=== PATIENT | female | born 1960 | race Caucasian/White ===

== ENCOUNTER → 2021-05-08 14:43 | Outpatient (BNVA) | payer OTHER, SELFPAY | PROVIDERS: PCP Internal Medicine; Visit Provider Hospitalist | DX: Z13.89 Encounter for screening for other disorder (principal) ==

== ENCOUNTER → 2021-07-07 13:11 | Outpatient (BNVA) | payer OTHER, SELFPAY | PROVIDERS: PCP Internal Medicine; Visit Provider Hospitalist | DX: Z13.89 Encounter for screening for other disorder (principal) | CPT/HCPCS: 94618 ==

== ENCOUNTER → 2021-11-12 15:05 | Outpatient (BNVA) | payer MEDICAID, SELFPAY | PROVIDERS: PCP Internal Medicine; Visit Provider Hospitalist | DX: J44.9 Chronic obstructive pulmonary disease, unspecified (principal); R06.00 Dyspnea, unspecified; U09.9 Post COVID-19 condition, unspecified; I27.20 Pulmonary hypertension, unspecified; I50.810 Right heart failure, unspecified; M79.89 Other specified soft tissue disorders | CPT/HCPCS: 99212 ==

== ENCOUNTER → 2022-07-05 14:43 | Outpatient (BNVA) | payer OTHER, SELFPAY | PROVIDERS: PCP Internal Medicine; Visit Provider Hospitalist | DX: U09.9 Post COVID-19 condition, unspecified (principal); I27.20 Pulmonary hypertension, unspecified; I50.810 Right heart failure, unspecified; M79.89 Other specified soft tissue disorders; R06.00 Dyspnea, unspecified | CPT/HCPCS: 99212 ==

== ENCOUNTER 2022-07-23 09:54 | Outpatient (RCR) | payer OTHER, SELFPAY ==
[2022-07-23 10:06] VITALS: BP 120/62; PULSE 89
--- NOTE | 2022-07-23 13:47 | MHC.PR.IN ---
[address] [phone] F: [phone] Pulmonary Rehabilitation Individual Treatment Plan Norma Johnson is a 61 year old (F) who was referred to the Pulmonary Rehabilitation program by Jasvir Tee. This patient who has a primary diagnosis of Post Covid 19 will begin pulmonary rehabilitation with monitored exercise and education to optimize both physical and social performance, autonomy, increase strength and endurance, and control dypsnea. The following information was gathered from the patient: Smoking History Current smoking status: Former Smoker Years smoked: 25 Last time smoked: 25 years ago Quit Date: 1997 Assistance with quitting needed: Past Medical History Medical History: Cardiac Disorders Sleep Apnea Bronchitis GERD Vascular Problems Depression Surgeries: Past Pulmonary Hospitalizations # of hospitalizations in the past year: # of ER vists due to breathing troubles in the past year: Current Pulmonary Medications Xarelto 20mg dialy Multaq 400 mg twice daily Aleve 1 tab a night Furosemide 40mg daily Allergy History Allergies: pollen/ seasonal Current Oxygen Use Supplemental Oxygen Device Used: None Liter flow: How often: Pulmonary History Cough: Yes: seasonal allergies Sputum: Sleep device: Yes: J&L Other pulmonary devices: Peak flow meter: No Nebulizer: No Suction: No Ventilator: No Secretion clearance: No PEP: No Influenza vaccine: No Pneumonia vaccine: No Patient Questionaire Scores MRC Dyspnea Scale (mRC): 3 CAT Score: PHQ-9 Score: 9 Pulmonary Function Test and Vital Signs Pulmonary Function Test Date of PFT 01/19/21 FVC Actual 2.51% FVC Predicted 2.63% FEV1 Actual 2.05% FEV1 Predicted 2.05% FEV1/FVC Actual 82% FEV1/FVC Predicted 78% DLCO 19.9 Vital Signs Heart Rate 89 Blood Pressure 120/62 SpO2 97% Respiratory Rate 16 regular shallow breathing Six Minute Walk Test Supplemental Oxygen O2 L/min: FiO2: Resting Vitals SpO2: 97% BP: 120/62mmHg HR: 89 bpm Total Distance 400 Feet Number/ Time of Rests (sec) 6 15 seconds each TIFFANIE 0 METS 1.57 SpO2 91 HR (bpm) 124 MPH 0.75 Meters/Minute Post-walk Vitals SpO2: 94 BP: 95/52 HR: 76 Performance Observations Pt walk 400 feet unassisted, with 6 15 second rest for a total of 6 minutes. Pt stopped to rest due to increased shortness of breath and rapid shallow breathing. Pt was able to resume the walk after resting. Pt denies angina, dizziness, or leg/hip/calf pain during testing. Pulmonary Rehabilitation Plan Topic Problem Goal Plan Comment Education Knowledge deficit of disease self management strategies Verbalize adequate disease self-management skills Effective control of dyspnea Disease overview Home exercise program Panic Control Pt was educated on pursed lip breathing. Pt was given instruction with explanation and pamphlet. Pt returned demonstration with correct technique. Hypoxia N/A, no s/s of hypoxemia Psychosocial Depression No reported psychosocial impairments Adequate treatment of depression Verbalizes improved psychosocial coping strategies & mechanisms Benefits of exercise Relaxation techniques Coping techniques Recommend counseling Pt stated she does fee depressed, and that's why she feels tired most days. Pt takes 2 -3 naps a day, and believes it is because of depression. Denies anxiety. Discussed the benefits of therapy, but patient denies need for one at this time. Pt believes participating in pulmonary rehab will help with her depression. Will discuss more thoroughly and provide education during her sessions. Activities of Daily Living Fear of severe dyspnea ADL management and control of dyspnea ADL performance with pacing and pursed lip breathing Educate on pursed lip breathing and pacing with stairs and activity Pt was given instruction and demonstrated her understanding of pursed lip breathing. Nutrition & Weight Management Obese BMI 68.7. Pt states she has had a steady increase in weight and this is the most she has weighed. Pt was given Dash diet education/recipes. Further education and discussion will be implemented during the program. Tobacco Managment NA Medication N/A, pt reports compliance w/ prescribed medications Adherence to prescribed medications Importance of medication compliance Medications purpose Medication schedule Prescribed medications PT states she takes medication as prescribed. Inhaled Medication N/A Pt is not prescribed respiratory medications at this time. Continuous review of medications throughout program. Secretion Management N/A, pt able to self manage secretions Patient demonstrates effective cough and airway clearance Patient demonstrates effective cough and airway clearance Pt has strong cough. Pt states her cough is worse with seasonal allergies, and is not experiencing a cough at this time. 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 Pt walked 400ft in 6 minutes with several rests. Pt stated she stopped because she was short of breath. Pt will participated in pul rehab 2X a week on Tuesday's and at 10:00am. Initial met's taken from walk 1.57 60%-80% HR will be monitored between 98-131. UBE completed on intake for 6 min L1.0/p6 mets 1.9 rpd 2.5 Stepper completed on intake for 6 minutes L1.0/P13 Mets 2.5 RPD 2.5 Treadmill completed on intake for 6 minutes L1.0/0 Mets 1.76 RPD 3 Diabetes Management Does patient have DM?: No Diabetes Type: Current Blood Glucose Level: Current A1C Level: Self Check: Patient's Goals and Concerns I want to be able to breathe while doing a set of stairs and not able to lose my breath. I want to go to my grandchild's games. I want to be able to do everyday things. Some days are worse than others. Pt states she is highly motivated to start this program but is worries this will get discouraged if she does not see change. . Balance Wheel Screw Hole Tapper Review I have reviewed the outcome assessment, treatment plan, goals, and problem list. The treatment plan and goals support the patient's needs and abilities, and thereby recommend that the exercise plan be completed as documented. Special precautions or modifications to the treatment plan include:
[2022-07-27 11:42] VITALS: BP 110/62; BP 118/70
[2022-08-03 11:42] VITALS: BP 105/68; BP 110/64
[2022-08-05 11:50] VITALS: BP 112/64; BP 161/64
[2022-08-10 10:00] VITALS: BP 100/68; BP 120/62
[2022-08-12 09:54] VITALS: BP 110/62; BP 110/64
--- NOTE | 2022-08-19 12:00 | MHC.PR.IN ---
[address] [phone] F: [phone] Pulmonary Rehabilitation Individual Treatment Plan Norma Johnson is a 61 year old (F) who was referred to the Pulmonary Rehabilitation program by Jasvir Tee. This patient who has a primary diagnosis of Post Covid 19 will begin pulmonary rehabilitation with monitored exercise and education to optimize both physical and social performance, autonomy, increase strength and endurance, and control dypsnea. The following information was gathered from the patient: Smoking History Current smoking status: Former Smoker Years smoked: 25 Last time smoked: 25 years ago Quit Date: 1997 Assistance with quitting needed: Past Medical History Medical History: Cardiac Disorders Sleep Apnea Bronchitis GERD Vascular Problems Depression Surgeries: Past Pulmonary Hospitalizations # of hospitalizations in the past year: # of ER vists due to breathing troubles in the past year: Current Pulmonary Medications zorelto 20mg dialy multaq 400 mg twice daily aleve 1 tab a night furosemide 40mg daily Allergy History Allergies: pollen/ seasonal Current Oxygen Use Supplemental Oxygen Device Used: None Liter flow: How often: Pulmonary History Cough: Yes: seasonal allergies Sputum: Sleep device: Yes: J&L Other pulmonary devices: Peak flow meter: No Nebulizer: No Suction: No Ventilator: No Secretion clearance: No PEP: No Influenza vaccine: No Pneumonia vaccine: No Patient Questionaire Scores MRC Dyspnea Scale (mRC): 3 CAT Score: PHQ-9 Score: 9 Pulmonary Function Test and Vital Signs Pulmonary Function Test Date of PFT 01/19/21 FVC Actual 2.51% FVC Predicted 2.63% FEV1 Actual 2.05% FEV1 Predicted 2.05% FEV1/FVC Actual 82% FEV1/FVC Predicted 78% DLCO 19.9 Vital Signs Heart Rate 89 Blood Pressure 120/62 SpO2 97% Respiratory Rate 16 regular shallow breathing Six Minute Walk Test Supplemental Oxygen O2 L/min: FiO2: Resting Vitals SpO2: 97% BP: 120/62mmHg HR: 89 bpm Total Distance 400 Feet Number/ Time of Rests (sec) 6 15 seconds each TIFFANIE 0 METS 1.57 SpO2 91 HR (bpm) 124 MPH 0.75 Meters/Minute Post-walk Vitals SpO2: 94 BP: 95/52 HR: 76 Performance Observations Pt walk 400 feet unassisted, with 6 15 second rest for a total of 6 minutes. Pt stopped to rest due to increased shortness of breath and rapid shallow breathing. Pt was able to resume the walk after resting. Pt denies angina, dizziness, or leg/hip/calf pain during testing. Pulmonary Rehabilitation Plan Topic Problem Goal Plan Comment Education Knowledge deficit of disease self management strategies Verbalize adequate disease self-management skills Effective control of dyspnea Disease overview Home exercise program Panic Control Pt was educated on pursed lip breathing. Pt was given instruction with explanation and pamphlet. Pt returned demonstration with correct technique. Hypoxia N/A, no s/s of hypoxemia Psychosocial Depression No reported psychosocial impairments Adequate treatment of depression Verbalizes improved psychosocial coping strategies & mechanisms Benefits of exercise Relaxation techniques Coping techniques Recommend counseling Pt stated she does fell depressed, and that's why she feels tired most days. Pt takes 2 -3 naps a day, and believes it is because of depression. Denies anxiety. Discussed the benefits of therapy, but patient denies need for one at this time. Pt believes participating in pulmonary rehab will help with her depression. Will discuss more thouroughly and provide education during her sessions. Activities of Daily Living Fear of severe dyspnea ADL management and control of dyspnea ADL performance with pacing and pursed lip breathing Educate on pursed lip breathing and pacing with stairs and activity Pt was given instruction and demonstrated her understanding of pursed lip breathing. Nutrition & Weight Management Obese BMI 68.7. Pt states she has had a steady increase in weight and this is the most she has weighed. Pt was given Dash diet education/recipes. Further education and discussion will be implemented during the program. Tobacco Managment NA Pt Medication N/A, pt reports compliance w/ prescribed medications Adherence to prescribed medications Importance of medication compliance Medications purpose Medication schedule Prescribed medications PT states she takes medication as prescribed. Inhaled Medication N/A Pt is not prescribed respiratory medications at this time. Further review will be implemented throughout program. Secretion Management N/A, pt able to self manage secretions Patient demonstrates effective cough and airway clearance Patient demonstrates effective cough and airway clearance Pt has strong cough. Pt states her cough is worse with seasonal allergies, and is not experiencing a cough at this time. Exercise & Fitness Decreased strength & endurance Knowledge deficit of exercise guidelines & safety No regular exercise Pulmonary Rehab 2-3x/week Weight or resistance training 2-3x/week Review benefits & core components of exercise program Review how to measure and monitor dyspnea level Review exercise safety guidelines Review frequency and duration of exercise Review exercise intensity TIFFANIE RPD 3-4/10 Review home exercise guidelines 5 minute warmup. Diabetes Management Does patient have DM?: No Diabetes Type: Current Blood Glucose Level: Current A1C Level: Self Check: Patient's Goals and Concerns I want to be able to breathe while doing a set of stairs and not able to lose my breath. I want to go to my grandchild's games. I want to be able to do everyday things. Some days are worse than others. Pt states she is highly motivated to start this program but is worries this will get discouraged if she does not see change. . Community Coordinator [employer] Review I have reviewed the outcome assessment, treatment plan, goals, and problem list. The treatment plan and goals support the patient's needs and abilities, and thereby recommend that the exercise plan be completed as documented. Special precautions or modifications to the treatment plan include:
--- NOTE | 2022-09-07 12:22 | MHC.PR.RE ---
[address] [phone] F: [phone] Pulmonary Rehabilitation Reassessment Norma Johnson is a 61 year old (F) who was referred to the Pulmonary Rehabilitation program by Jasvir Tee. This patient who has a primary diagnosis of Post Covid 19 has completed 6 sessions of the pulmonary rehabilitation program thus far with monitored exercise and education to optimize both physical and social performance, autonomy, increase strength and endurance, and control dypsnea. They were evaluated on 09/07/22. Reassessment Type: 60-day reassessment Topic Education/ Progress Progress Comments Education Demonstrates disease self-management strategies PT has not participated in session for about a month. Will call X2 Hypoxia Current oxygen Use: room air Pt does not use supplemental 02 at this time. Psychosocial PHQ-9 Score: 9 Pt progressing with coping skills. Pt states feeling happier since starting pulmonary rehab. Activities of Daily Living Management of ADL with Control of Dyspnea Progressing with pursed lip breathing and diaphragmatic breathing. Nutrition & Weight Management Current weight: 182 kg BMI: Weight change: Weight Stable Progressing Pt education on nutrition. Dash diet/low sodium/low calorie Tobacco Stages of Change: Tobacco Use: Cigerettes/Day: Any nicotine replacement: Any cessation medication: Smoking quit date: Smokeless tobacco use and amount: Medication Met, taking 100% of time zorelto 20mg dialy multaq 400 mg twice daily aleve 1 tab a night furosemide 40mg daily Inhaled Medication Patient verbalizes correct technique of: MDI: N/A DPI: N/A SMI: N/A NEBULIZER: N/A Secretion Management Patient provides adequate return demonstration of: Controlled cough: N/A Yi cough: Acapella/ PEP Device: N/A CPT: N/A Sputum management: Exercise & Fitness Aerobic Exercise Frequency: Aerobic exercise 2-3X weekly Target heart range: Heart rate range: 98 SpO2 Range: 131 TIFFANIE RPD: 3-4 Time (minutes): 31 O2 use with exercise: r/a Current HEP: UBE L1.2/P6 19 minutes Nustep L1.2 13 minutes 5 minute warmup 5 minute cooldown 32 minutes exercise. Pt has not shown up this week. Called X1 PT progresses in level and RPD each visit. Playground Aide Review I have reviewed the outcome re-assessment and treatment plan. The treatment plan and goals support the patient's needs and abilities, and thereby recommend that the exercise plan be completed as documented. Special precautions or modifications to the treatment plan include:
[2022-09-14 11:08] VITALS: BP 110/52; BP 112/52
[2022-09-16 11:07] VITALS: BP 128/62; BP 130/74
--- NOTE | 2022-09-29 09:06 | MHC.PR.RE ---
[address] [phone] F: [phone] Pulmonary Rehabilitation Reassessment Norma Johnson is a 61 year old (F) who was referred to the Pulmonary Rehabilitation program by Jasvir Tee. This patient who has a primary diagnosis of Post Covid 19 has completed 8 sessions of the pulmonary rehabilitation program thus far with monitored exercise and education to optimize both physical and social performance, autonomy, increase strength and endurance, and control dypsnea. They were evaluated on 09/29/22. Reassessment Type: 90-day reassessment Topic Education/ Progress Progress Comments Education Demonstrates disease self-management strategies PT has not participated in sessions consistently. Hypoxia Current oxygen Use: Room air Pt does not use supplemental 02 at this time. Psychosocial PHQ-9 Score: 9 Pt progressing with coping skills. Pt states feeling happier since starting pulmonary rehab. Activities of Daily Living Management of ADL with Control of Dyspnea Progressing with pursed lip breathing and diaphragmatic breathing. Nutrition & Weight Management Current weight: 182 kg BMI: Weight change: Weight Stable Progressing Pt education on nutrition. Dash diet/low sodium/low calorie Tobacco Stages of Change: Tobacco Use: Cigerettes/Day: Any nicotine replacement: Any cessation medication: Smoking quit date: Smokeless tobacco use and amount: Medication Met, taking 100% of time zorelto 20mg dialy multaq 400 mg twice daily aleve 1 tab a night furosemide 40mg daily Inhaled Medication Patient verbalizes correct technique of: MDI: N/A DPI: N/A SMI: N/A NEBULIZER: N/A Secretion Management Patient provides adequate return demonstration of: Controlled cough: N/A Yi cough: Acapella/ PEP Device: N/A CPT: N/A Sputum management: Exercise & Fitness Aerobic Exercise Frequency: Aerobic exercise 2-3X weekly Target heart range: Heart rate range: 98 SpO2 Range: 131 TIFFANIE RPD: 3-4 Time (minutes): 31 O2 use with exercise: r/a Current HEP: UBE L1.2/P6 19 minutes Nustep L1.2 13 minutes 5 minute warmup 5 minute cooldown 32 minutes exercise. Pt has not shown up this week. Called X1 Pt has only returned for 2 sessions. Operating Engineer Review I have reviewed the outcome re-assessment and treatment plan. The treatment plan and goals support the patient's needs and abilities, and thereby recommend that the exercise plan be completed as documented. Special precautions or modifications to the treatment plan include:
[2022-09-30 14:35] VITALS: BP 122/62; BP 122/68
[2022-10-07 13:23] VITALS: BP 108/68; BP 120/52
[2022-10-12 12:23] VITALS: BP 118/66; BP 128/78
--- NOTE | 2022-10-29 08:05 | MHC.PR.RE ---
[address] [phone] F: [phone] Pulmonary Rehabilitation Reassessment Norma Johnson is a 62 year old (F) who was referred to the Pulmonary Rehabilitation program by Jasvir Tee. This patient who has a primary diagnosis of Post Covid 19 has completed 11 sessions of the pulmonary rehabilitation program thus far with monitored exercise and education to optimize both physical and social performance, autonomy, increase strength and endurance, and control dypsnea. They were evaluated on 10/29/22. Reassessment Type: 120-day reassessment Topic Education/ Progress Progress Comments Education Demonstrates disease self-management strategies PT has not participated in sessions consistently. Hypoxia Current oxygen Use: Room Air Pt does not use supplemental 02 at this time. Psychosocial PHQ-9 Score: 9 Pt progressing with coping skills. Pt states feeling happier since starting pulmonary rehab. Activities of Daily Living Management of ADL with Control of Dyspnea Progressing with pursed lip breathing and diaphragmatic breathing. Nutrition & Weight Management Current weight: 182 kg BMI: Weight change: Weight Stable Progressing Pt education on nutrition. Dash diet/low sodium/low calorie Tobacco Stages of Change: Tobacco Use: Cigerettes/Day: Any nicotine replacement: Any cessation medication: Smoking quit date: Smokeless tobacco use and amount: Medication Met, taking 100% of time zorelto 20mg dialy multaq 400 mg twice daily aleve 1 tab a night furosemide 40mg daily Inhaled Medication Patient verbalizes correct technique of: MDI: N/A DPI: N/A SMI: N/A NEBULIZER: N/A Secretion Management Patient provides adequate return demonstration of: Controlled cough: N/A Yi cough: Acapella/ PEP Device: N/A CPT: N/A Sputum management: Exercise & Fitness Aerobic Exercise Frequency: Aerobic exercise 2-3X weekly Target heart range: Heart rate range: 98 SpO2 Range: 131 TIFFANIE RPD: 3-4 Time (minutes): 31 O2 use with exercise: r/a Current HEP: UBE L1.2/P6 19 minutes Nustep L1.2 13 minutes 5 minute warmup 5 minute cooldown 32 minutes exercise. Pt has not shown up this week. Called X1 Pt has not been consistent with sessions. Tonal Regulator Review I have reviewed the outcome re-assessment and treatment plan. The treatment plan and goals support the patient's needs and abilities, and thereby recommend that the exercise plan be completed as documented. Special precautions or modifications to the treatment plan include:
[2022-11-09 11:59] VITALS: BP 104/64; BP 128/70
== END 2022-11-17 07:55 | disposition home or self-care (01) ==
LOC: HO.PR 09:54
PROVIDERS: PCP Internal Medicine; Visit Provider Hospitalist
DX: I27.20 Pulmonary hypertension, unspecified (principal); U07.1 COVID-19
CPT/HCPCS: 94625

== ENCOUNTER 2022-07-27 08:55 | Outpatient (REF) | payer OTHER, SELFPAY ==
[2022-07-27 10:32] LABS: MANUAL DIFF FLAG NO
[2022-07-27 11:29] LABS: Basophils Absolute Auto 0.1 X10*3/uL (0.0-0.2); Basophils Percent Auto 0.8 % (0-2); Eosinophils Absolute Auto 0.2 X10*3/uL (0.0-0.4); Eosinophils Percent Auto 2.9 % (0-4); Hematocrit 39.3 % (37.0-47.0); Hemoglobin 11.9 g/dl (12.0-16.0); Imm Gran Abs Auto 0.03 X10*3/uL (0.00-0.03); Imm Gran Pct Auto 0.4 % (0.0-0.4); Lymphocytes Absolute Auto 1.3 X10*3/uL (1.2-4.9); Mean Corpuscular HGB Conc 30.3 g/dl (31.0-35.0); Mean Corpuscular Hemoglobin 25.3 pg (27.0-33.0); Mean Corpuscular Volume 83.6 fL (80.0-98.0); Mean Platelet Volume 9.8 fL (9.4-12.3); Monocytes Absolute Auto 0.5 X10*3/uL (0.1-1.2); Monocytes Percent Auto 6.5 % (2-11); Neutrophils Absolute Auto 5.8 x10*3/uL (2.0-8.3); Neutrophils Percent Auto 73.4 % (45-73); Platelet Count 322 X10*3/uL (160-400); Red Cell Distribution Width 17.2 % (11.0-16.0); White Blood Count 7.9 X10*3/uL (4.8-10.8)
[2022-07-27 12:08] LABS: B Type Natriuretic Peptide 31 pg/mL (<100)
[2022-07-27 12:18] LABS: Anion Gap 12 (12-20); Blood Urea Nitrogen 13 mg/dL (9-16); Calcium 9.4 mg/dL (8.4-10.2); Carbon Dioxide 24 mmol/L (22-29); Chloride 110 mmol/L (96-108); Estimated Glomerular Filt Rate > 60; Glucose Random 83 mg/dL (60-115); Magnesium 2.1 mg/dL (1.6-2.6); Potassium 4.4 mmol/L (3.3-5.1); Sodium 142 mmol/L (135-145)
[2022-07-27 12:32] LABS: Erythrocyte Sedimentation Rate 23 MM/HR (0-20)
== END 2022-07-27 08:56 | disposition home or self-care (01) ==
LOC: HO.LAB 08:55
PROVIDERS: PCP Internal Medicine; Visit Provider Hospitalist
DX: I27.20 Pulmonary hypertension, unspecified (principal); M79.89 Other specified soft tissue disorders; R06.00 Dyspnea, unspecified; I50.9 Heart failure, unspecified
CPT/HCPCS: 36415; 80048; 83735; 83880; 85025; 85652

== ENCOUNTER 2022-09-09 14:36 | Outpatient (AMB) | payer OTHER, SELFPAY ==
--- NOTE | 2022-09-09 14:51 | MHC.OFFVIS ---
Intake Vital Signs 09/09/22 14:52 Height 5 ft 6 in BMI Reason not done Patient refused/unable BP 124/66 Blood Pressure Location Lt brachial Position Sitting Pulse 71 Pulse Source Pulse Oximeter Pulse Oximetry (%) 95 Oxygen Delivery Method Room Air Intake Visit Reasons: Shortness of breath Allergies adhesive tape Allergy (Severe, Verified 09/09/22 14:58) Hives bacitracin Adverse Reaction (Unknown, Verified 09/09/22 14:58) Rash HPI HPI Comments History of Present Illness Details The patient is a 61-year-old woman with history of atrial fibrillation status post ablation, obstructive sleep apnea on CPAP who apparently was in her usual state health until sometime around the end of February when she started developing worsening respiratory symptoms. Her shortness of breath is moderate severity. Is been very difficult for her to work due to her significant shortness of breath. she was evaluated at [facility]. There she did undergo pulmonary function studies which demonstrated mild restrictive lung disease in addition to a moderate diffusion impairment. Indeed some of the findings could be secondary to her body habitus. However, it appears that her diffusion impairment seems to be out of proportion to the level of restriction. In the meantime the patient did have an echocardiogram which was I also reviewed with her. It demonstrated that her right ventricle was dilated suggesting the potential pulmonary hypertension. She also has sleep apnea and has been using her CPAP. CPAP therapy has been affecting beneficial. However, her CPAP recently broke and now she does not have the availability of using her CPAP at nighttime. We do have her last sleep study and we will request an urgent CPAP replacement for her in order to minimize any worsening pulmonary vascular disease. Patient does have significant daytime drowsiness with an [place] score of 12/24 specially while not using her CPAP. She is on anti coagulation therapy although will go ahead and have her undergo an blood work in order to request additional imaging studies. The patient will benefit from getting a CT scan of the chest to further address her ongoing symptoms along with her abnormal PFTs. She already had a chest x-ray that was not diagnostic. but, the most significant finding on her exam is that she has got as over her lower extremities because they are very swollen and weeping of fluid. 07/07/2021 the patient is here for pulmonary follow-up visit. Overall the patient continues to have significant dyspnea on exertion. Even with minimal activity. No significant changes in the last time we spoke. She was recently admitted to [facility] with significant cellulitis. She was placed on antibiotics and also underwent aggressive diuresis. However, even after the diuresis she continues to have significant shortness of breath. While she was admitted to the hospital she missed her cardiology appointment. Therefore she has not been seen by them as of yet. We did review her recent blood work and her SARS-CoV-2 antibodies were positive suggesting that she was exposed to COVID-19. 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 The patient will benefit from pulmonary rehabilitation at this time. During the visit we also underwent a 6 minutes walk test. The patient had significant dyspnea score 8/10 having to stop ambulating. Her oxygen did drop to about 93%. However heart rate had increased to about 120 beats per minute with minimal activity after walking just [address] oxygen on her and ambulate her on 2 L to see if that would cause her to have any significant improvement. However, she continues to have the same amount of dyspnea on exertion and the oxygen was not helpful. We did review her CT scan of the chest demonstrating no evidence of any interstitial lung disease except for some atelectasis. Her lower extremities appear to be better after she was diuresed. Although they are still swollen. Currently they are being wrapped. Therefore, the patient will be set up for pulmonary rehabilitation and also would benefit from following up with Cardiology in order for them to evaluate for right heart catheterization to assess for pulmonary hypertension. 07/05/2022 the patient is here for a pulmonary follow-up visit. The patient has been very depressed lately. She is still continues to have significant shortness of breath and she has been having some eating binges. She has been getting significant amount of weight. The patient did stop going to pulmonary rehabilitation. But we have to get her back into the schedule. The patient appears to be significantly volume overloaded. She has been managed closely by Wound Care because of her lower extremity wounds that are likely predisposed by her significant volume overload status. Therefore, will go ahead and increase her diuresis. I will request additional blood work. From a CPAP standpoint the patient has been using her CPAP with good effect. The therapy has been affecting beneficial and she does use it for more than 4 hours a night. The patient has underlying pulmonary hypertension based on a cardiac catheterization. Will go ahead and work on her volume but given additional diuretics. If the patient continue to be symptomatic after optimal volume status will consider starting pulmonary vasodilators. Will read reassess and couple months. 09/09/2022 the patient is here for a pulmonary follow-up visit. She continues to have significant dyspnea on exertion. This is resulted in significant depression. She has gained weight because she is not very active in view of her significant shortness of breath. She has tried additional diuretics without any significant improvement. The patient has a cardiac catheterizations demonstrated pulmonary hypertension. She does have sleep apnea but is being adequately treated with CPAP. Therefore, the patient has pulmonary hypertension is likely contributing to significant upper respiratory symptoms. Based on evaluation patient appears to have group 1 pulmonary hypertension likely precipitated by COVID-19. The patient has not responded well to diuretics. She has gained more weight. Therefore, will start her on vasodilator therapy. The patient has a hard time taking medications several times a day so I will send her once a day medication at this time. Once she starts the medication we can not have her have a 6 minutes walk test. She also should go back to pulmonary rehabilitation. 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 Right heart failure Social History Household Members: None Patient Tobacco Use Status: Former Tobacco user Tobacco use type: Cigarette Years Smoked: 25 Second Hand Smoke Exposure: No Review of Systems Const Denies fatigue, Denies headache(s), Reports snoring and Reports weight gain Eyes Denies change in vision ENT Denies change in voice and Denies headache(s) Card Reports leg edema (weeping), Reports dyspnea and Reports dyspnea on exertion Resp Reports dyspnea, Reports dyspnea on exertion, Reports snoring and Denies wheezing Musc Reports no additional complaints Skin/Breast Reports as per HPI, Reports skin swelling, Reports sores and Reports wounds Neuro Denies headache(s) Endo Denies fatigue Aller/Immun Denies wheezing Physical Exam Vital Signs: Last Vital Signs Pulse 71 09/09/22 14:52 BP 124/66 09/09/22 14:52 Pulse Ox 95 09/09/22 14:52 Oxygen Delivery Method Room Air 09/09/22 14:52 Const General: alert Neck Neck: Yes normal visual inspection, Yes full ROM and Yes no lymphadenopathy Chest Chest palpation & inspection: normal inspection of the chest Resp Auscultation: diminished lung sounds Cardio Rate: regular rate Rhythm: regular rhythm Heart sounds: S1 normal heart sound present and S2 normal heart sound present GI Palpation (GI): Soft to palpation and nontender Auscultation: normal bowel sounds Extrem General: Yes edema and Yes venous stasis dermatitis Assessment & Plan Assessment & Plan (1) 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: Code(s): U09.9 - Post COVID-19 condition, unspecified (2) Pulmonary hypertension: Comment: group 1 Code(s): I27.20 - Pulmonary hypertension, unspecified (3) Right heart failure: Code(s): I50.810 - Right heart failure, unspecified (4) Limb swelling: Code(s): M79.89 - Other specified soft tissue disorders (5) Dyspnea: Code(s): R06.00 - Dyspnea, unspecified Plan continue Pulmonary rehab stopped Provigil continue APAP at night diuretics as needed start Tadalafil daily Symbicort as needed weight management start Trazodone for sleep F/U 2-3 months Medications: New trazodone take 1 hour before sleep 100 mg (2 x 50 mg) PO BEDTIME 60 tabs 6RF tadalafil (pulm. hypertension) 20 mg PO DAILY 30 days 30 tabs 6RF I27.20 - Pulmonary hypertension, unspecified Coding Level of Care Code Est Pt Level 4 (43655) Diagnoses [id number] syndrome U09.9 Pulmonary hypertension I27.20 Right heart failure I50.810 Limb swelling M79.89 Dyspnea R06.00 Time Spent (min) 19
[2022-09-09 14:52] VITALS: BP 124/66; PULSE 71; O2SAT 95
== END 2022-09-09 15:35 | disposition home or self-care (01) ==
PROVIDERS: PCP Internal Medicine; Visit Provider Hospitalist
DX: U09.9 Post COVID-19 condition, unspecified (principal); I27.20 Pulmonary hypertension, unspecified; I50.810 Right heart failure, unspecified; M79.89 Other specified soft tissue disorders; R06.00 Dyspnea, unspecified
CPT/HCPCS: 99214

== ENCOUNTER → 2022-09-09 14:36 | Outpatient (BNVA) | payer OTHER, SELFPAY | PROVIDERS: PCP Internal Medicine; Visit Provider Hospitalist | DX: R06.00 Dyspnea, unspecified (principal); M79.89 Other specified soft tissue disorders; I27.20 Pulmonary hypertension, unspecified; U09.9 Post COVID-19 condition, unspecified; I50.810 Right heart failure, unspecified | CPT/HCPCS: 99212 ==

== ENCOUNTER 2023-07-20 14:56 | Outpatient (AMB) | payer OTHER, SELFPAY ==
[2023-07-20 15:21] VITALS: BP 172/88; PULSE 83; O2SAT 97; BMI 66.3
--- NOTE | 2023-07-20 15:21 | MHC.OFFVIS ---
Vital Signs 07/20/23 15:21 Height 5 ft 6 in Weight 411 lb BMI 66.3 BP 172/88 H Blood Pressure Location Rt radial Position Sitting Pulse 83 Pulse Source Pulse Oximeter Pulse Oximetry (%) 97 Oxygen Delivery Method Room Air Intake Visit Reasons: SOB Prod. 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 cough: Details: 62 years old female with super morbid obesity, is a known case of obstructive sleep apnea, she claims that she is using CPAP every night (4-5 hours ) She has history of sleep apnea for the last many years. But in 2021 she got new CPAP device and started using it more regularly. She is known to have pulmonary hypertension, and is on sildenafil 20 mg t.i.d.. She most likely has significant restrictive pulmonary disorder, she claims that she had pulmonary function test many years ago, probably at [facility]. She is not on any bronchodilator therapy, and has not required O2. She has been seeing Dr. Tee for her pulmonary issues. The last visit was in August 2022. 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 She had COVID infection in 2021. However a CT scan of the chest in 2021 is reported to be unremarkable. SHE COMES TODAY FOR AN URGENT VISIT, WITH THE COMPLAINT OF GETTING MORE SHORT OF BREATH AND HAD ONSET OF COUGH, FOR 5 DAYS AGO. SHE DENIES ANY FEVER, OR SORE THROAT. TODAY SHE CLAIMS THAT THE COUGH IS ALMOST GONE IT IS MINIMAL.. 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 COVID-19 Dyspnea Limb swelling Right heart failure Social History Household Members: None Patient Tobacco Use Status: Former Tobacco user Tobacco use type: Cigarette Years Smoked: 25 Second Hand Smoke Exposure: No Review of Systems Const All systems reviewed & are unremarkable except as noted in HPI and below Eyes Reports no additional complaints ENT Reports no additional complaints Card Denies chest pain, Denies leg edema (BUT LEGS ARE BULKY ANYWAY) and Reports dyspnea on exertion Resp Reports as per HPI, Reports cough and Reports dyspnea on exertion GI Reports no additional complaints Musc Reports back pain and Reports arthralgias Skin/Breast Reports system reviewed and no additional complaints, except as documented Neuro Reports no additional complaints Psych Reports depression Endo Reports no additional complaints Aller/Immun Reports no additional complaints Physical Exam Vital Signs: Last Vital Signs Pulse 83 07/20/23 15:21 BP 172/88 H 07/20/23 15:21 Pulse Ox 97 07/20/23 15:21 Oxygen Delivery Method Room Air 07/20/23 15:21 BMI result Body Mass Index 66.3 Const General: comfortable, no acute distress, alert and awake; No healthy appearing (SHE IS MORBIDLY OBESE.) Orientation/consciousness: patient oriented x3 HEENT Other: NO ACUTE INFECTION IS NOTED Head: Yes normal to inspection General nose exam: No nasal polyps present and No nasal discharge present Face and sinus: Yes sinuses nontender Mouth: oropharynx abnormals (NARROW AND CROWDED, MALLAMPATI CLASS 4) Throat: Yes posterior oropharynx normal Eyes General: appearance normal, both eyes and all related structures Neck Neck: Yes normal visual inspection, Yes no lymphadenopathy, Yes trachea midline, Yes no JVD and Yes other (NECK IS MARKEDLY OBESE .) Thyroid: Thyroid normal Chest Chest palpation & inspection: normal inspection of the chest, normal palpation of entire chest wall and no tenderness Resp Other: PERCUSSION NOTE IS NOT PERCEPTIBLE. BREATH SOUNDS ARE GROSSLY DISTANT. NO CREPITATIONS RHONCHI OR WHEEZES ARE HEARD. Cardio Palpation: PMI not normal (NOT PALPABLE) Rate: regular rate Rhythm: regular rhythm Heart sounds: no gallops and no murmurs GI Palpation (GI): Soft to palpation, nontender, No hepatosplenomegaly present, no masses and Other GI palpation findings present (ABDOMEN IS GROSSLY OBESE AND PENDULOUS) Auscultation: normal bowel sounds Back/Spine/Pelvis Thoracic/Lumbar Spine: thoracic and lumbar spine normal to inspection and No thoraco-lumbar ROM limited Skin General skin exam: no rashes or lesions noted Neuro General: patient oriented x3 and no focal motor deficits Cranial nerves: Yes CN's II-XII intact bilaterally Extrem General: Yes normal to inspection, Yes no calf tenderness and Yes edema (LEGS ARE VERY BULKY WITH CHRONIC STASIS EDEMA.) Psych Appearance: grossly normal and well kempt Speech and movement: Normal speech and movement present Assessment & Plan Assessment & Plan (1) Morbid obesity: Comment: BMI= 66.3 REPRESENTS SUPER MORBID OBESITY. THIS HAS BEEN A CHRONIC PROBLEM. SHE DOES HAVE OBSTRUCTIVE SLEEP APNEA, AND CLAIMS THAT SHE IS USING CPAP AT NIGHT Code(s): E66.01 - Morbid (severe) obesity due to excess calories Category: Medical Plan: TALKED TO THE PATIENT SHE IS FULLY AWARE OF HER SUPER MORBID OBESITY. DOES NOT THINK SHE IS ABLE TO LOSE ANY WEIGHT. (2) LEXIE (obstructive sleep apnea): Comment: SHE IS KNOWN TO HAVE OBSTRUCTIVE SLEEP APNEA FOR THE PAST MANY YEARS. AT LEAST FOR THE LAST 2 YEARS SHE IS USING THE NEW CPAP DEVICE. BUT WE HAVE NO INFORMATION ABOUT HER COMPLIANCE. SHE CLAIMS THAT SHE IS USING ABOUT FOR ABOUT 4 HOURS PER NIGHT Code(s): G47.33 - Obstructive sleep apnea (adult) (pediatric) Category: Medical Plan: I TOLD HER THE IMPORTANCE OF USING CPAP REGULARLY FOR AT LEAST 6 HOURS PER NIGHT. I ADVISED THAT UN-TREATED LEXIE CONTRIBUTES TO HER ONGOING PULMONARY HYPERTENSION. WE NEED TO CHECK HER COMPLIANCE FREQUENTLY, SHE NEEDS TO BE CHECKED BY HER PCP OR BIT SHARPENER OPERATOR AT LEAST EVERY 6 MONTHS TO GO OVER THE COMPLIANCE, AND PROPER USE OF CPAP. (3) Pulmonary hypertension: Comment: group 1 . SHE IS KNOWN TO HAVE PULMONARY HYPERTENSION, I AM NOT SURE, BUT SHE MUST HAVE HAD AN ECHOCARDIOGRAM AT SOME POINT. SHE IS BEING TREATED WITH SILDENAFIL 20 MG T.I.D.. SHE HAS NOT SEEN HER ACETYLENE GAS COMPRESSOR RECENTLY, AT LEAST FOR 1 YEAR Code(s): I27.20 - Pulmonary hypertension, unspecified Category: Medical Plan: I TOLD HER TO MAKE APPOINTMENT WITH HER ACETYLENE GAS COMPRESSOR. SHE NEEDS TO HAVE PERIODIC ECHOCARDIOGRAM TO CHECK FOR PULMONARY HYPERTENSION (4) Bronchitis: Comment: HER PRESENT SYMPTOMS ARE ONLY 1-WEEK-OLD AND CHARACTERIZED BY MILD COUGH AND INCREASED SHORTNESS OF BREATH. TODAY SHE IS ALREADY AT HER BASELINE. Code(s): J40 - Bronchitis, not specified as acute or chronic Category: Medical Plan: THERE IS NO NEED TO TREAT WITH ANY ANTIBIOTIC OR STEROIDS. SHE CAN USE OTC COUGH SYRUP SUCH ROBITUSSIN DM P.R.N.. Plan PATIENT EDUCATION : I HAD A GOOD TALK WITH THE PATIENT AND ADVISED THAT SHE MUST SEE HER PHYSICIANS REGULARLY, AT THIS OFFICE SHE NEEDS TO SEE DR. TEE, FOR PULMONARY FOLLOW-UP AND ALSO TO FOLLOW-UP FOR THE OBSTRUCTIVE SLEEP APNEA, AT LEAST Q 6 MONTHS. I HAVE ASKED HER TO MAKE APPOINTMENT TO BE SEEN BY DR. TEE IN THE NEXT 4-6 WEEKS. I THINK SHE NEEDS TO HAVE AN UP TO DATE PULMONARY FUNCTION TEST. SHE NEEDS TO HAVE HER COMPLIANCE CHECKED FOR THE CPAP. SHE SHOULD ALSO HAVE A REPEAT ECHOCARDIOGRAM. AND SHE NEEDS TO TALK ABOUT POSSIBLE WEIGHT REDUCTION. Coding Level of Care Code Est Pt Level 4 (94546) Diagnoses Morbid obesity E66.01 LEXIE (obstructive sleep apnea) G47.33 Pulmonary hypertension I27.20 Bronchitis J40
== END 2023-07-20 16:01 | disposition home or self-care (01) ==
PROVIDERS: PCP Internal Medicine; Visit Provider Internal Medicine
DX: E66.01 Morbid (severe) obesity due to excess calories (principal); G47.33 Obstructive sleep apnea (adult) (pediatric); I27.20 Pulmonary hypertension, unspecified; J40 Bronchitis, not specified as acute or chronic
CPT/HCPCS: 99214

== ENCOUNTER → 2023-07-20 14:56 | Outpatient (BNVA) | payer OTHER, SELFPAY | PROVIDERS: PCP Internal Medicine; Visit Provider Internal Medicine | DX: I27.20 Pulmonary hypertension, unspecified (principal); G47.33 Obstructive sleep apnea (adult) (pediatric); J40 Bronchitis, not specified as acute or chronic; E66.01 Morbid (severe) obesity due to excess calories; Z68.44 Body mass index [BMI] 60.0-69.9, adult | CPT/HCPCS: 99212 ==

== ENCOUNTER 2023-08-24 10:40 | Outpatient (AMB) | payer OTHER, SELFPAY ==
--- NOTE | 2023-08-24 10:50 | MHC.OFFVIS ---
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 Her shortness of breath is moderate severity. Is been very difficult for her to work due to her significant shortness of breath. she was evaluated at [facility]. There she did undergo pulmonary function studies which demonstrated mild restrictive lung disease in addition to a moderate diffusion impairment. Indeed some of the findings could be secondary to her body habitus. However, it appears that her diffusion impairment seems to be out of proportion to the level of restriction. In the meantime the patient did have an echocardiogram which was I also reviewed with her. It demonstrated that her right ventricle was dilated suggesting the potential pulmonary hypertension. She also has sleep apnea and has been using her CPAP. CPAP therapy has been affecting beneficial. However, her CPAP recently broke and now she does not have the availability of using her CPAP at nighttime. We do have her last sleep study and we will request an urgent CPAP replacement for her in order to minimize any worsening pulmonary vascular disease. Patient does have significant daytime drowsiness with an [place] score of 12/24 specially while not using her CPAP. She is on anti coagulation therapy although will go ahead and have her undergo an blood work in order to request additional imaging studies. The patient will benefit from getting a CT scan of the chest to further address her ongoing symptoms along with her abnormal PFTs. She already had a chest x-ray that was not diagnostic. but, the most significant finding on her exam is that she has got as over her lower extremities because they are very swollen and weeping of fluid. 07/07/2021 the patient is here for pulmonary follow-up visit. Overall the patient continues to have significant dyspnea on exertion. Even with minimal activity. No significant changes in the last time we spoke. She was recently admitted to [facility] with significant cellulitis. She was placed on antibiotics and also underwent aggressive diuresis. However, even after the diuresis she continues to have significant shortness of breath. While she was admitted to the hospital she missed her cardiology appointment. Therefore she has not been seen by them as of yet. We did review her recent blood work and her SARS-CoV-2 antibodies were positive suggesting that she was exposed to COVID-19. 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 The patient will benefit from pulmonary rehabilitation at this time. During the visit we also underwent a 6 minutes walk test. The patient had significant dyspnea score 8/10 having to stop ambulating. Her oxygen did drop to about 93%. However heart rate had increased to about 120 beats per minute with minimal activity after walking just [address] oxygen on her and ambulate her on 2 L to see if that would cause her to have any significant improvement. However, she continues to have the same amount of dyspnea on exertion and the oxygen was not helpful. We did review her CT scan of the chest demonstrating no evidence of any interstitial lung disease except for some atelectasis. Her lower extremities appear to be better after she was diuresed. Although they are still swollen. Currently they are being wrapped. Therefore, the patient will be set up for pulmonary rehabilitation and also would benefit from following up with Cardiology in order for them to evaluate for right heart catheterization to assess for pulmonary hypertension. 07/05/2022 the patient is here for a pulmonary follow-up visit. The patient has been very depressed lately. She is still continues to have significant shortness of breath and she has been having some eating binges. She has been getting significant amount of weight. The patient did stop going to pulmonary rehabilitation. But we have to get her back into the schedule. The patient appears to be significantly volume overloaded. She has been managed closely by Wound Care because of her lower extremity wounds that are likely predisposed by her significant volume overload status. Therefore, will go ahead and increase her diuresis. I will request additional blood work. From a CPAP standpoint the patient has been using her CPAP with good effect. The therapy has been affecting beneficial and she does use it for more than 4 hours a night. The patient has underlying pulmonary hypertension based on a cardiac catheterization. Will go ahead and work on her volume but given additional diuretics. If the patient continue to be symptomatic after optimal volume status will consider starting pulmonary vasodilators. Will read reassess and couple months. 09/09/2022 the patient is here for a pulmonary follow-up visit. She continues to have significant dyspnea on exertion. This is resulted in significant depression. She has gained weight because she is not very active in view of her significant shortness of breath. She has tried additional diuretics without any significant improvement. The patient has a cardiac catheterizations demonstrated pulmonary hypertension. She does have sleep apnea but is being adequately treated with CPAP. Therefore, the patient has pulmonary hypertension is likely contributing to significant upper respiratory symptoms. Based on evaluation patient appears to have group 1 pulmonary hypertension likely precipitated by COVID-19. The patient has not responded well to diuretics. She has gained more weight. Therefore, will start her on vasodilator therapy. The patient has a hard time taking medications several times a day so I will send her once a day medication at this time. Once she starts the medication we can not have her have a 6 minutes walk test. She also should go back to pulmonary rehabilitation. 08/24/2023 the patient is here for a pulmonary follow-up visit. Overall the patient has been doing okay. She has been tolerating the sildenafil 20 mg 3 times a day to treat her underlying pulmonary hypertension. The affecting beneficial. She does have an echocardiogram Gram pending will be scheduled with primary broader Cardiology. Respiratory sung she continues with inhalers with good effect. I will make sure to send prescriptions to the pharmacy. At nighttime she is using her CPAP. The CPAP therapy continues to be affecting beneficial. She does use that every night. Typically more than 4 hours a night. She still working with her weight management. I did give her information about online pulmonary rehabilitation. She is going to look further into it. 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 COVID-19 Dyspnea Limb swelling Right heart failure Social History Household Members: None Patient Tobacco Use Status: Former Tobacco user Tobacco use type: Cigarette Years Smoked: 25 Second Hand Smoke Exposure: No Review of Systems Const Denies fatigue, Denies headache(s) and Reports snoring Eyes Denies change in vision ENT Denies change in voice and Denies headache(s) Card Reports leg edema (weeping), Reports dyspnea and Reports dyspnea on exertion Resp Reports dyspnea, Reports dyspnea on exertion, Reports snoring and Denies wheezing Musc Reports no additional complaints Skin/Breast Reports as per HPI, Reports skin swelling, Reports sores and Reports wounds Neuro Denies headache(s) Endo Denies fatigue Aller/Immun Denies wheezing Physical Exam Vital Signs: Last Vital Signs Pulse 76 08/24/23 10:53 Pulse Ox 96 08/24/23 10:53 Oxygen Delivery Method Room Air 08/24/23 10:53 BMI result Body Mass Index 66.5 Const General: alert Neck Neck: Yes normal visual inspection, Yes full ROM and Yes no lymphadenopathy Chest Chest palpation & inspection: normal inspection of the chest Resp Auscultation: diminished lung sounds Cardio Rate: regular rate Rhythm: regular rhythm Heart sounds: S1 normal heart sound present and S2 normal heart sound present GI Palpation (GI): Soft to palpation and nontender Auscultation: normal bowel sounds Extrem General: Yes edema and Yes venous stasis dermatitis Assessment & Plan Assessment & Plan (1) [id number] syndrome: Code(s): U09.9 - Post COVID-19 condition, unspecified Category: Medical (2) Pulmonary hypertension: Code(s): I27.20 - Pulmonary hypertension, unspecified Category: Medical (3) Right heart failure: Code(s): I50.810 - Right heart failure, unspecified Category: Medical Qualifiers: Heart failure chronicity: chronic Qualified Code(s): I50.812 - Chronic right heart failure (4) Limb swelling: Code(s): M79.89 - Other specified soft tissue disorders Category: Medical (5) Dyspnea: Code(s): R06.00 - Dyspnea, unspecified Category: Medical Qualifiers: Dyspnea type: dyspnea on exertion Qualified Code(s): R06.09 - Other forms of dyspnea Plan continue Pulmonary rehab continue APAP at night diuretics as needed continue sildenafil 3 times day Symbicort as needed weight management Trazodone for sleep CXR ECHO F/U 4-6 months Orders: Orders XR chest 2V 08/24/23 R06.09 - Other forms of dyspnea Coding Level of Care Code Est Pt Level 4 (43266) Diagnoses [id number] syndrome U09.9 Pulmonary hypertension I27.20 Chronic right-sided heart failure I50.812 Heart failure chronicity: chronic Limb swelling M79.89 Dyspnea on exertion R06.09 Dyspnea type: dyspnea on exertion Time Spent (min) 17
[2023-08-24 10:53] VITALS: PULSE 76; O2SAT 96; BMI 66.5
== END 2023-08-24 11:13 | disposition home or self-care (01) ==
PROVIDERS: PCP Internal Medicine; Visit Provider Hospitalist
DX: U09.9 Post COVID-19 condition, unspecified (principal); I27.20 Pulmonary hypertension, unspecified; I50.812 Chronic right heart failure; M79.89 Other specified soft tissue disorders; R06.09 Other forms of dyspnea
CPT/HCPCS: 99214

== ENCOUNTER 2023-08-24 10:40 | Outpatient (REF) | payer OTHER, SELFPAY ==
--- NOTE | ~2023-08-24 | XR_ITS ---
EXAMINATION: XR CHEST CLINICAL INFORMATION: Dyspnea, cough COMPARISON: None available. TECHNIQUE: 2 views of the chest were obtained. FINDINGS: Pulmonary vascular congestion. No focal consolidation. No pleural effusion or pneumothorax. Normal heart size and mediastinal contours. XR/XR chest 2V IMPRESSION: Pulmonary vascular congestion without overt pulmonary edema, focal consolidation or pleural effusion.
[2023-08-24 12:21] LABS: Alanine Aminotransferase 31 U/L (0-31); Albumin Level 4.2 g/dL (3.5-5.0); Alkaline Phosphatase 70 U/L (39-117); Anion Gap 11 (12-20); Aspartate Amino Transferase 29 U/L (5-31); Bilirubin Total 0.6 mg/dL (0.0-1.0); Blood Urea Nitrogen 12 mg/dL (9-16); Calcium 9.3 mg/dL (8.4-10.2); Carbon Dioxide 26 mmol/L (22-29); Chloride 108 mmol/L (96-108); Cholesterol 126 mg/dL (<200); Estimated Glomerular Filt Rate > 60; Glucose Random 112 mg/dL (60-115); HDL Cholesterol 37 mg/dL (>40); LDL Cholesterol Calculated 71 mg/dL (<100); Potassium 4.4 mmol/L (3.3-5.1); Sodium 141 mmol/L (135-145); Total Protein 7.8 g/dL (6.5-8.0); Triglycerides 92 mg/dL (<150)
[2023-08-24 12:26] LABS: Alanine Aminotransferase 31 U/L (0-31); Albumin Level 4.1 g/dL (3.5-5.0); Alkaline Phosphatase 70 U/L (39-117); Anion Gap 14 (12-20); Aspartate Amino Transferase 29 U/L (5-31); Bilirubin Total 0.6 mg/dL (0.0-1.0); Blood Urea Nitrogen 12 mg/dL (9-16); Calcium 9.4 mg/dL (8.4-10.2); Carbon Dioxide 24 mmol/L (22-29); Chloride 108 mmol/L (96-108); Estimated Glomerular Filt Rate > 60; Glucose Random 112 mg/dL (60-115); Potassium 4.6 mmol/L (3.3-5.1); Sodium 141 mmol/L (135-145); Total Protein 7.7 g/dL (6.5-8.0)
[2023-08-24 12:41] LABS: Thyroid Stimulating Hormone 2.27 uIU/mL (0.32-4.0)
== END 2023-08-24 10:41 | disposition home or self-care (01) ==
LOC: HO.LAB 10:40
PROVIDERS: Absent Provider Nurse Practitioner Acute Care; PCP Internal Medicine; Visit Provider Hospitalist
DX: R06.09 Other forms of dyspnea (principal); E66.01 Morbid (severe) obesity due to excess calories; I48.19 Other persistent atrial fibrillation; D68.9 Coagulation defect, unspecified; I10 Essential (primary) hypertension; I27.20 Pulmonary hypertension, unspecified; Z00.00 Encounter for general adult medical examination without abnormal findings
CPT/HCPCS: 36415; 71046; 80053; 80061; 80299; 84443; 99212

== ENCOUNTER 2024-04-17 14:40 | Outpatient (AMB) | payer OTHER, SELFPAY ==
--- NOTE | 2024-04-17 14:45 | MHC.OFFVIS ---
Vital Signs 04/17/24 14:46 Height 5 ft 6 in Weight 432 lb 1.696 oz BMI 69.7 BP 156/84 H Blood Pressure Location Lt brachial Position Sitting Pulse 80 Pulse Source Pulse Oximeter Pulse Oximetry (%) 96 Oxygen Delivery Method Room Air Intake Visit Reasons: dyspnea Allergies adhesive tape Allergy (Severe, Verified 04/17/24 14:49) Hives bacitracin Adverse Reaction (Unknown, Verified 04/17/24 14:49) Rash HPI Comments Details: The patient is a 63-year-old woman with history of atrial fibrillation status post ablation, obstructive sleep apnea on CPAP who apparently was in her usual state health until sometime around the end of February when she started developing worsening respiratory symptoms. Her shortness of breath is moderate severity. Is been very difficult for her to work due to her significant shortness of breath. she was evaluated at [facility]. There she did undergo pulmonary function studies which demonstrated mild restrictive lung disease in addition to a moderate diffusion impairment. Indeed some of the findings could be secondary to her body habitus. However, it appears that her diffusion impairment seems to be out of proportion to the level of restriction. In the meantime the patient did have an echocardiogram which was I also reviewed with her. It demonstrated that her right ventricle was dilated suggesting the potential pulmonary hypertension. She also has sleep apnea and has been using her CPAP. CPAP therapy has been affecting beneficial. However, her CPAP recently broke and now she does not have the availability of using her CPAP at nighttime. We do have her last sleep study and we will request an urgent CPAP replacement for her in order to minimize any worsening pulmonary vascular disease. Patient does have significant daytime drowsiness with an [place] score of 12/24 specially while not using her CPAP. She is on anti coagulation therapy although will go ahead and have her undergo an blood work in order to request additional imaging studies. The patient will benefit from getting a CT scan of the chest to further address her ongoing symptoms along with her abnormal PFTs. She already had a chest x-ray that was not diagnostic. but, the most significant finding on her exam is that she has got as over her lower extremities because they are very swollen and weeping of fluid. 07/07/2021 the patient is here for pulmonary follow-up visit. Overall the patient continues to have significant dyspnea on exertion. Even with minimal activity. No significant changes in the last time we spoke. She was recently admitted to [facility] with significant cellulitis. She was placed on antibiotics and also underwent aggressive diuresis. However, even after the diuresis she continues to have significant shortness of breath. While she was admitted to the hospital she missed her cardiology appointment. Therefore she has not been seen by them as of yet. We did review her recent blood work and her SARS-CoV-2 antibodies were positive suggesting that she was exposed to COVID-19. 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 The patient will benefit from pulmonary rehabilitation at this time. During the visit we also underwent a 6 minutes walk test. The patient had significant dyspnea score 8/10 having to stop ambulating. Her oxygen did drop to about 93%. However heart rate had increased to about 120 beats per minute with minimal activity after walking just [address] oxygen on her and ambulate her on 2 L to see if that would cause her to have any significant improvement. However, she continues to have the same amount of dyspnea on exertion and the oxygen was not helpful. We did review her CT scan of the chest demonstrating no evidence of any interstitial lung disease except for some atelectasis. Her lower extremities appear to be better after she was diuresed. Although they are still swollen. Currently they are being wrapped. Therefore, the patient will be set up for pulmonary rehabilitation and also would benefit from following up with Cardiology in order for them to evaluate for right heart catheterization to assess for pulmonary hypertension. 07/05/2022 the patient is here for a pulmonary follow-up visit. The patient has been very depressed lately. She is still continues to have significant shortness of breath and she has been having some eating binges. She has been getting significant amount of weight. The patient did stop going to pulmonary rehabilitation. But we have to get her back into the schedule. The patient appears to be significantly volume overloaded. She has been managed closely by Wound Care because of her lower extremity wounds that are likely predisposed by her significant volume overload status. Therefore, will go ahead and increase her diuresis. I will request additional blood work. From a CPAP standpoint the patient has been using her CPAP with good effect. The therapy has been affecting beneficial and she does use it for more than 4 hours a night. The patient has underlying pulmonary hypertension based on a cardiac catheterization. Will go ahead and work on her volume but given additional diuretics. If the patient continue to be symptomatic after optimal volume status will consider starting pulmonary vasodilators. Will read reassess and couple months. 09/09/2022 the patient is here for a pulmonary follow-up visit. She continues to have significant dyspnea on exertion. This is resulted in significant depression. She has gained weight because she is not very active in view of her significant shortness of breath. She has tried additional diuretics without any significant improvement. The patient has a cardiac catheterizations demonstrated pulmonary hypertension. She does have sleep apnea but is being adequately treated with CPAP. Therefore, the patient has pulmonary hypertension is likely contributing to significant upper respiratory symptoms. Based on evaluation patient appears to have group 1 pulmonary hypertension likely precipitated by COVID-19. The patient has not responded well to diuretics. She has gained more weight. Therefore, will start her on vasodilator therapy. The patient has a hard time taking medications several times a day so I will send her once a day medication at this time. Once she starts the medication we can not have her have a 6 minutes walk test. She also should go back to pulmonary rehabilitation. 08/24/2023 the patient is here for a pulmonary follow-up visit. Overall the patient has been doing okay. She has been tolerating the sildenafil 20 mg 3 times a day to treat her underlying pulmonary hypertension. The affecting beneficial. She does have an echocardiogram Gram pending will be scheduled with primary broader Cardiology. Respiratory sung she continues with inhalers with good effect. I will make sure to send prescriptions to the pharmacy. At nighttime she is using her CPAP. The CPAP therapy continues to be affecting beneficial. She does use that every night. Typically more than 4 hours a night. She still working with her weight management. I did give her information about online pulmonary rehabilitation. She is going to look further into it. 04/17/2024 the patient is here for a pulmonary follow-up visit. The patient had been doing okay but then she started developing worsening shortness of breath today. Apparently she was diagnosed with atrial fibrillation and she was going to undergo cardioversion but then she was in normal sinus mechanism. Seems to go be in an outer it. We did go for brief walking oximetry today because of her shortness of breath and she indeed had a heart rate of 126 just with minimal activity and was irregularly irregular consistent with AFib. When she rested the heart rate did improve to the low 100s. She needs to follow-up with the precision machining instructor at this time for that. In the meantime she has not been taking the sildenafil regularly because it gives her odd symptoms. I did recommend she can try taking it twice a day for little bit and just make sure she tolerates it she decrease the strain on the right heart. In addition to that she is not using her respiratory inhalers because she does not find him effective. She has been using the CPAP at nighttime. CPAP therapy has been affecting beneficial. She does use for more than 4 hours a night. Will request his download. For now though with her significant sleep apnea and morbid obesity that is affecting her overall health I do agree that using weight loss medications such as Zepbound will be a very good option for her. She is going to talk to her primary care doctor to get that approved with possible. [facility] Medical History (Updated 04/17/24 @ 14:58 by Jasvir Tee MD) Bronchitis LEXIE (obstructive sleep apnea) Morbid obesity CHF (congestive heart failure) [id number] syndrome COVID-19 Dyspnea Limb swelling Right heart failure Social History Household Members: None Patient Tobacco Use Status: Former Tobacco user Tobacco use type: Cigarette Years Smoked: 25 Second Hand Smoke Exposure: No Review of Systems Const Denies fatigue, Denies headache(s), Reports snoring and Reports weight gain Eyes Denies change in vision ENT Denies change in voice and Denies headache(s) Card Reports leg edema (weeping), Reports palpitations, Reports dyspnea and Reports dyspnea on exertion Resp Reports dyspnea, Reports dyspnea on exertion, Reports snoring and Denies wheezing Musc Reports no additional complaints Skin/Breast Reports as per HPI, Reports skin swelling, Reports sores and Reports wounds Neuro Denies headache(s) Endo Denies fatigue and Reports palpitations Aller/Immun Denies wheezing Physical Exam Vital Signs: Last Vital Signs Pulse 80 04/17/24 14:46 BP 156/84 H 04/17/24 14:46 Pulse Ox 96 04/17/24 14:46 Oxygen Delivery Method Room Air 04/17/24 14:46 BMI result Body Mass Index 69.7 Const General: alert Neck Neck: Yes normal visual inspection, Yes full ROM and Yes no lymphadenopathy Chest Chest palpation & inspection: normal inspection of the chest Resp Auscultation: diminished lung sounds Cardio Rate: tachycardic Rhythm: abnormal rhythm Heart sounds: S1 normal heart sound present and S2 normal heart sound present GI Palpation (GI): Soft to palpation and nontender Auscultation: normal bowel sounds Extrem General: Yes edema and Yes venous stasis dermatitis Assessment & Plan Assessment & Plan (1) [id number] syndrome: Code(s): U09.9 - Post COVID-19 condition, unspecified Category: Medical (2) Pulmonary hypertension: Code(s): I27.20 - Pulmonary hypertension, unspecified Category: Medical (3) Right heart failure: Code(s): I50.810 - Right heart failure, unspecified Category: Medical Qualifiers: Heart failure chronicity: chronic Qualified Code(s): I50.812 - Chronic right heart failure (4) Limb swelling: Code(s): M79.89 - Other specified soft tissue disorders Category: Medical (5) Dyspnea: Code(s): R06.00 - Dyspnea, unspecified Category: Medical Qualifiers: Dyspnea type: dyspnea on exertion Qualified Code(s): R06.09 - Other forms of dyspnea (6) LEXIE (obstructive sleep apnea): Code(s): G47.33 - Obstructive sleep apnea (adult) (pediatric) Category: Medical Plan continue APAP at night, need to get a download diuretics as needed continue sildenafil 3 times day Symbicort as needed weight management, Agree with the use of zepbound Trazodone for sleep F/U 4-6 months Coding Level of Care Code Est Pt Level 4 (27280) Complex EM visit Add On G2211 Diagnoses [id number] syndrome U09.9 Pulmonary hypertension I27.20 Chronic right-sided heart failure I50.812 Heart failure chronicity: chronic Limb swelling M79.89 Dyspnea on exertion R06.09 Dyspnea type: dyspnea on exertion LEXIE (obstructive sleep apnea) G47.33 Time Spent (min) 16
[2024-04-17 14:46] VITALS: BP 156/84; PULSE 80; O2SAT 96; BMI 69.7
--- OUTSIDE RECORDS SUMMARY | 2024-04-17 18:23 | XMS_ITS | Clinical Summary ---
Author Organization [facility] [place] Address [address] [place] [address] Care Team Providers Care Public Relations Professional Name Role Phone Marizol Rojas MD Primary Care Provider Allergies Active Allergy Reactions Criticality Noted Date Comments Adhesive 12/01/2023 tape Bacitracin 12/01/2023 Medications acetaminophen (acetaminophen Extra Strength) 500 mg tablet TAKE 2 TABS BY MOUTH EVERY 8 HOURS Active dronedarone (MULTAQ) 400 mg tablet Take 1 Tablet by mouth 2 times daily. - Oral Active furosemide (LASIX) 20 mg tablet Take 2 Tablets by mouth daily. - Oral Active metoprolol tartrate (LOPRESSOR) 25 mg tablet Take 1 Tablet by mouth 2 times daily. May hold if HR <100 bpm - Oral Active naproxen sodium (ANAPROX) 220 mg tablet Take 220 mg by mouth 2 times daily (with meals). - Oral Active sildenafil (REVATIO) 20 mg tablet Take 1 Tablet by mouth 3 times daily. - Oral Active rivaroxaban (Xarelto) 20 mg tablet TAKE 1 TABLET BY MOUTH EVERY DAY WITH SUPPER 30 tablet 6 01/25/2024 Active Active Problems Problem Noted Date Diagnosed Date Atrial fibrillation 12/01/2023 Dizziness 12/01/2023 Dyspnea 12/01/2023 Hypertension 12/01/2023 Morbid obesity with BMI of 50.0-59.9, adult 11/21 PVD (peripheral vascular disease) 12/01/2023 Sleep apnea 12/01/2023 Snoring 12/01/2023 Surgical History Surgery Date Site/Laterality Comments CHOLECYSTECTOMY PROCEDURE: DC LAPAROSCOPY SURG CHOLECYSTECTOMY BREAST BIOPSY Right PROCEDURE: DC BIOPSY BREAST OPEN INCISIONAL; COMMENT: 2005 LAPAROSCOPIC GASTRIC BANDING PROCEDURE: LAP ADJUSTABLE GASTRIC BAND OTHER SURGICAL HISTORY PROCEDURE: ---- OTHER ----; COMMENT: cryo ablation of heart node for afib HERNIA REPAIR 2019 PROCEDURE: HISTORICAL HERNIA REPAIR/UMB Medical History Medical History Date Comments Hypertension 09/15/2019 DX:Hypertension Atrial fibrillation (CMS/HCC) 09/15/2019 DX :Atrial fibrillation (HCC) Morbid obesity with BMI of 5 0.0-59.9, adult (CMS/HCC) 09/15/2019 DX:Morbid obesity with BMI o f 50.0-59.9, adult ([facility]) Bariatric surgery status 09/15/2019 DX:Ash atric surgery status; COMMENT: Lap band 2007 Obesity DX:Obesity Cellulitis of leg DX:Cellulitis of leg Edema DX:Edema Insomnia DX:Insomnia Severe obesity (CMS/HCC) DX:Chyna re obesity ([facility]) Shingles DX:Shingles Shortness of breath DX:Shortness of breath Sleep apnea DX:Sleep apnea Family History Medical History Relation Name Comments Coronary artery disease Father HTN, diabetes Heart attack Father Other: Cardiovascular disease Maternal Grandfather Stroke Maternal Grandfather Alzheimer's disease Maternal Grandmother Coronary artery disease Mother HTN, diabetes Heart attack Mother Other: Congestive Heart Failure Mother Relation Name Status Comments Father Maternal Grandfather Maternal Grandmother Mother Social History Tobacco Use Types Packs/Day Years Used Date Smoking Tobacco: Former Cigarettes Q uit: 02/21/1997 Smokeless Tobacco: Never Alcohol Use Standard Drinks/Week Comments Yes 0 (1 standard drink = 0.6 oz pur e alcohol) Comments Unknown Sex and Gender Information Value Date Recorded Sex Assigned at Not on file Legal Sex Female 11:55 AM EST Gender Identity Not on file Sexual Orientation Not on file Obstetrics History Last Filed Vital Signs Vital Sign Reading Time Taken Comments Blood Pressure 118/80 11/23/2023 2:34 PM EDT Pulse 130 11/23/2023 2:34 PM EDT Temperature - - Respiratory Rate - - Oxygen Saturation - - Inhaled Oxygen Concentration - - Weight 193 kg (425 lb) 11/23/2023 2:34 PM EDT Height 167.6 cm (5' 6 ) 11/23/2023 2:34 PM EDT Body Mass Index 68.6 11/23/2023 2:34 PM EDT Plan of Treatment Upcoming Encounters Date Type Department Care Team (Late st Contact Info) Description 05/01/2024 3:30 PM EDT Ancillary Procedure [facility] [address] [place] [address] Health Maintenance Due Date Last Done Comments DTaP,Tdap,and Td Vaccines (1 - Tdap) 10/28/1978 Cervical Cancer Screening: Pap Smear 10/28/1980 Pneumococcal Vaccine: 50+ Years (1 of 1 - PCV) 10/28/2009 Zoster Vaccines (1 of 2) 10/28/2009 RSV Immunization Patients 60+ Years Old (1 - Risk 60-74 years 1-dose series) 2019 Cholesterol Screening (Lipid Panel) 01/02/2020 Colorectal Cancer Screening: Colonoscopy 01/02/2020 Depression Screening 01/02/2020 HIV Screening 01/02/2020 Hepatitis C Screening 01/02/2020 Medicare Annual Wellness Visit 01/02/2020 Social Influencers of Health Screening 01/02/2020 COVID-19 Vaccine ( season) 2023 Influenza Vaccine (#1) 2023 Breast Cancer Screening 02/11/2024 02/11/20 22, 01/14/2021, 01/10/2020, Additional history exists Hypertension/CHF/CAD Annual BMP Blood Test 08/25/2024 08/26/2023 HIB Vaccines Aged Out No longer eligi ble based on patient's age to complete this topic HPV Vaccines Aged Out No longer eligi ble based on patient's age to complete this topic Hepatitis A Vaccines Aged Out No long er eligible based on patient's age to complete this topic Hepatitis B Vaccines Aged Out No long er eligible based on patient's age to complete this topic IPV Vaccines Aged Out No longer eligi ble based on patient's age to complete this topic MMR Vaccines Aged Out No longer eligi ble based on patient's age to complete this topic Meningococcal ACWY Vaccine Aged Out N o longer eligible based on patient's age to complete this topic Meningococcal B Vacine Aged Out No lo nger eligible based on patient's age to complete this topic Pneumococcal Vaccine: Pediatrics (0 to 5 Years) and At-Risk Patients (6 to 64 Years) Aged Out No longer eligible based on patient's age to complete this topic RSV Immunization Patients Under 20 months Aged Out No longer eligible based on patient's age to complete this topic Varicella Vaccines Aged Out No longer eligible based on patient's age to complete this topic Procedures Procedure Name Priority Date/Time Associated Diagnosis Comments ANNUAL BMP BLOOD TEST Routine 08/26/2023 [facility] SCREENING DIGITAL Routine 02/10/2022 6:50 PM EST Encounter for screening mammogram for malignant neoplasm of breast from Last 3 Months or Most Recently Relevant to Health Maintenance Results * Annual BMP Blood Test (08/26/2023) Annual BMP Blood Test abstracted us Historical Provider HEALTH MAINTENANCE Final Result * [facility] SCREENING DIGITAL (02/10/2022 6:50 PM EST) Anatomical Region Laterality Modality Mammography 02/10/2022 1:46 PM EST Narrative 02/10/2022 6:50 PM EST [facility] Diagnostic Imaging Department [address] [place] [address] Patient: ??NORMA MATHUR ?/Age/Sex: 1960 - 61 - F Unit#: ??[id number] ? Location/Status: ??SPDIMAM/REG CLI ? Mnemonic/Ordering Site: ??DIGSC/SPMAM Ordering Physician: ??MARIZOL ROJAS MD Alexi Screening Digital - 02/10/22 - 1401 History: Bilateral breast cancer screening. Technique: Bilateral digital mammography. Conventional CC and MLO projections with tomosynthesis MLO views and computer-aided detection Comparison: [facility] 01/14/2021, dating back to 11/27/2014. Findings: Breast tissue is mostly ??fatty replaced (category A density) (as calculated by [employer] software). There is no suspicious group of microcalcification, no suspicious mass, architectural distortion or suspicious change in breast tissue density. Impression: ??No evidence of malignancy. BIRADS category 1, negative examination, 3341F 98350, [id number] Note: Patient information entered ??into a reminder system with a target due date for the next mammogram; PQRI II 9502P Dictating Physician: ??CROW WONG MD Electronically Signed by: ??CROW WONG MD Dic Date/Time: ??02/10/22 1849 Sign date/Time: ??02/10/22 1850 Procedure Note Crow Wong MD - 03/25/2023 [facility] Diagnostic Imaging Department [address] [place] [id number] Patient: NORMA MATHUR D.O.B./Age/Sex: 1960 - 61 - F Unit#: [id number] Location/Status: [facility] CLI Mnemonic/Ordering Site: [facility] Ordering Physician: MARIZOL ROJAS MD Alexi Screening Digital - 02/10/22 - 1401 History: Bilateral breast cancer screening. Technique: Bilateral digital mammography. Conventional CC and MLOprojections with tomosynthesis MLO views and computer-aided detection Comparison: [facility] 01/14/2021, dating back to 11/27/2014. Findings: Breast tissue is mostly fatty replaced (category A density) (ascalculated by [employer] software). There is no suspicious group of microcalcification, no suspicious mass, architectural distortion or suspicious change in breast tissue density. Impression: No evidence of malignancy. 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 Health Care Decision (hx) 06/02/2021 AD SIMMONS DIRECTIVE Health Care Decision (hx) 06/02/2021 AD SIMMONS DIRECTIVE Health Care Decision (hx) 06/02/2021 AD SIMMONS DIRECTIVE Health Care Decision (hx) 06/02/2021 AD SIMMONS DIRECTIVE Health Care Decision (hx) 06/02/2021 AD SIMMONS DIRECTIVE Health Care Decision (hx) 06/02/2021 AD SIMMONS DIRECTIVE Health Care Decision (hx) 06/02/2021 AD SIMMONS DIRECTIVE Health Care Decision (hx) 06/02/2021 AD SIMMONS DIRECTIVE Health Care Decision (hx) 06/02/2021 AD SIMMONS DIRECTIVE Health Care Decision (hx) 06/02/2021 AD SIMMONS DIRECTIVE Health Care Decision (hx) 06/02/2021 AD SIMMONS DIRECTIVE Health Care Decision (hx) 06/02/2021 AD SIMMONS DIRECTIVE Health Care Decision (hx) 06/02/2021 AD SIMMONS DIRECTIVE Health Care Decision (hx) 06/02/2021 AD SIMMONS DIRECTIVE Health Care Decision (hx) 06/02/2021 AD SIMMONS DIRECTIVE Health Care Decision (hx) 06/02/2021 AD SIMMONS DIRECTIVE Health Care Decision (hx) 06/02/2021 AD SIMMONS DIRECTIVE Health Care Decision (hx) 06/02/2021 AD SIMMONS DIRECTIVE Health Care Decision (hx) 06/02/2021 AD SIMMONS DIRECTIVE Health Care Decision (hx) 06/02/2021 AD SIMMONS DIRECTIVE Health Care Decision (hx) 06/02/2021 AD SIMMONS DIRECTIVE Health Care Decision (hx) 06/02/2021 AD SIMMONS DIRECTIVE Health Care Decision (hx) 06/02/2021 AD SIMMONS DIRECTIVE Health Care Decision (hx) 06/02/2021 AD SIMMONS DIRECTIVE Health Care Decision (hx) 06/02/2021 AD SIMMONS DIRECTIVE Health Care Decision (hx) 06/02/2021 AD SIMMONS DIRECTIVE Health Care Decision (hx) 06/02/2021 AD SIMMONS DIRECTIVE Health Care Decision (hx) 06/02/2021 AD SIMMONS DIRECTIVE Health Care Decision (hx) 06/02/2021 AD SIMMONS DIRECTIVE Health Care Decision (hx) 06/02/2021 AD SIMMONS DIRECTIVE Health Care Decision (hx) 06/02/2021 AD SIMMONS DIRECTIVE Health Care Decision (hx) 06/02/2021 AD SIMMONS DIRECTIVE Health Care Decision (hx) 06/02/2021 AD SIMMONS DIRECTIVE Health Care Decision (hx) 06/02/2021 AD SIMMONS DIRECTIVE Health Care Decision (hx) 06/02/2021 AD SIMMONS DIRECTIVE Health Care Decision (hx) 06/02/2021 AD SIMMONS DIRECTIVE Health Care Decision (hx) 06/02/2021 AD SIMMONS DIRECTIVE Health Care Decision (hx) 06/02/2021 AD SIMMONS DIRECTIVE Health Care Decision (hx) 06/02/2021 AD SIMMONS DIRECTIVE Health Care Decision (hx) 06/02/2021 AD SIMMONS DIRECTIVE Health Care Decision (hx) 06/02/2021 AD SIMMONS DIRECTIVE Health Care Decision (hx) 06/02/2021 AD SIMMONS DIRECTIVE Health Care Decision (hx) 06/02/2021 AD SIMMONS DIRECTIVE Health Care Decision (hx) 06/02/2021 AD SIMMONS DIRECTIVE Health Care Decision (hx) 06/02/2021 AD SIMMONS DIRECTIVE Care Teams Public Relations Professional Relationship Specialty Start Date End Date Marizol Rojas MD [address] [facility] [address] [place], [place] PCP - General Internal Medicine 01/19/12
== END 2024-04-17 15:11 | disposition home or self-care (01) ==
PROVIDERS: PCP Internal Medicine; Visit Provider Hospitalist
DX: U09.9 Post COVID-19 condition, unspecified (principal); I27.20 Pulmonary hypertension, unspecified; I50.812 Chronic right heart failure; M79.89 Other specified soft tissue disorders; R06.09 Other forms of dyspnea; G47.33 Obstructive sleep apnea (adult) (pediatric)
CPT/HCPCS: 99214

== ENCOUNTER → 2024-04-17 14:43 | Outpatient (BNVA) | payer MEDICARE, SELFPAY | PROVIDERS: PCP Internal Medicine; Visit Provider Hospitalist ==

== ENCOUNTER 2024-09-14 05:13 | Outpatient (REF) | payer MEDICARE, OTHER, SELFPAY ==
[2024-09-14 05:16] LABS: MANUAL DIFF FLAG NO
--- OUTSIDE RECORDS SUMMARY | 2024-09-14 05:17 | XMS_ITS ---
Author Name [facility] Organization Unknown Care Team Organization Name Specialty Phone Email Start Date End Da te [facility] NULL Primary Care 12/29/2021 10/10/2023
[2024-09-14 05:21] LABS: Hematocrit 29.1 % (37.0-47.0); Hemoglobin 9.4 g/dl (12.0-16.0); Imm Gran Abs Auto 0.02 X10*3/uL (0.00-0.03); Imm Gran Pct Auto 0.3 % (0.0-0.4); Lymphocytes Absolute Auto 1.1 X10*3/uL (1.2-4.9); Mean Corpuscular HGB Conc 32.3 g/dl (31.0-35.0); Mean Corpuscular Hemoglobin 27.6 pg (27.0-33.0); Mean Corpuscular Volume 85.3 fL (80.0-98.0); NRBC Abs Auto 0.000 X10*3/uL (0.0-0.012); NRBC Pct Auto 0.0 /100WBC (0.0-0.2); Platelet Count 301 X10*3/uL (160-400); Red Blood Count 3.41 X10*6/uL (4.20-5.50); White Blood Count 6.4 X10*3/uL (4.8-10.8)
[2024-09-14 05:35] LABS: Alanine Aminotransferase 35 U/L (0-31); Albumin Level 4.1 g/dL (3.5-5.0); Alkaline Phosphatase 86 U/L (39-117); Anion Gap 17 (12-20); Aspartate Amino Transferase 33 U/L (5-31); Blood Urea Nitrogen 30 mg/dL (9-16); Calcium 9.5 mg/dL (8.4-10.2); Carbon Dioxide 24 mmol/L (22-29); Chloride 93 mmol/L (96-108); Estimated Glomerular Filt Rate 16; Potassium 4.0 mmol/L (3.3-5.1); Sodium 130 mmol/L (135-145); Total Protein 8.1 g/dL (6.5-8.0)
== END 2024-09-14 05:14 | disposition home or self-care (01) ==
LOC: HO.MMNH2L 05:13
PROVIDERS: Visit Provider Student in an Organized Health Care Education/Training Program
DX: N17.9 Acute kidney failure, unspecified (principal); D64.9 Anemia, unspecified
CPT/HCPCS: 36415; 80053; 85025

== ENCOUNTER 2024-09-20 05:53 | Outpatient (REF) | payer MEDICARE, OTHER, SELFPAY ==
[2024-09-20 05:57] LABS: MANUAL DIFF FLAG NO
[2024-09-20 06:27] LABS: Hematocrit 30.1 % (37.0-47.0); Hemoglobin 9.6 g/dl (12.0-16.0); Imm Gran Abs Auto 0.05 X10*3/uL (0.00-0.03); Imm Gran Pct Auto 0.5 % (0.0-0.4); Lymphocytes Absolute Auto 2.5 X10*3/uL (1.2-4.9); Mean Corpuscular HGB Conc 31.9 g/dl (31.0-35.0); Mean Corpuscular Hemoglobin 27.4 pg (27.0-33.0); Mean Corpuscular Volume 86.0 fL (80.0-98.0); NRBC Abs Auto 0.000 X10*3/uL (0.0-0.012); NRBC Pct Auto 0.0 /100WBC (0.0-0.2); Platelet Count 365 X10*3/uL (160-400); Red Blood Count 3.50 X10*6/uL (4.20-5.50); White Blood Count 10.1 X10*3/uL (4.8-10.8)
[2024-09-20 06:44] LABS: Anion Gap 20 (12-20); Blood Urea Nitrogen 23 mg/dL (9-16); Calcium 9.5 mg/dL (8.4-10.2); Carbon Dioxide 22 mmol/L (22-29); Chloride 97 mmol/L (96-108); Estimated Glomerular Filt Rate 15; Potassium 3.5 mmol/L (3.3-5.1); Sodium 135 mmol/L (135-145)
== END 2024-09-20 05:54 | disposition home or self-care (01) ==
LOC: HO.MMNH2L 05:53
PROVIDERS: Visit Provider Student in an Organized Health Care Education/Training Program
DX: Z99.2 Dependence on renal dialysis (principal); N18.9 Chronic kidney disease, unspecified
CPT/HCPCS: 36415; 80048; 85025

== ENCOUNTER 2024-10-03 05:29 | Outpatient (REF) | payer MEDICARE, OTHER, SELFPAY ==
[2024-10-03 05:31] LABS: MANUAL DIFF FLAG NO
--- OUTSIDE RECORDS SUMMARY | 2024-10-03 05:31 | XMS_ITS | Encounter Summary ---
Author Organization [facility] Address [address] [place] [phone] Phone Care Team Providers Care Candy Forming Machine Operator Name Role Phone Chilo Rodriguez MD Primary Care Provider [phone] Encounter Details Date Type Department Care Team ([facility] st Contact Info) Description 09/15/2024 TCM in Dialysis Clinic [facility] [address] [address] Jeremy Aragon MD [address] [address] Social History Tobacco Use Types Packs/Day Years Used Date Smoking Tobacco: Never Assessed Comments Unknown Sex and Gender Information Value Date Recorded Sex Assigned at Not on file Legal Sex Female 1:39 PM EDT Gender Identity Not on file Sexual Orientation Not on file documented as of this encounter Progress Notes * Jeremy Aragon MD - 09/15/2024 12:00 AM EDT Patient: Norma Johnson : 1960 Note Type: Dialysis TCM Service Date: 09/15/2024 The patient was seen for a rtck-kc-zwod visit as part of Transitional Care Management services. Attending Director Of Loss Prevention: JEREMY ARAGON MD Dialysis Location: [facility] Schedule: Shift: 1 INTERACTIVE CONTACT This best-oo-ukxa visit occurred within 2 business days of the patient?s discharge. HOSPITALIZATION SUMMARY Patient transitioned from: Hospital Patient transitioned to: Home Admit Date: 08/07/2024 Discharge Date: 09/14/2024 Discharged info reviewed: Followed-up on or reviewed need for pending tests/treatments as noted HOME MEDICATIONS Discharge med list reviewed - changes reconciled and discussed with patient. PHYSICAL EXAM Exam performed. Vital Signs Reviewed. CV - Blood pressure noted. No edema. EXT - No ulcers. CARE COORDINATION Post-discharge follow-up appointments reviewed with the patient. VISIT DIAGNOSES CPT Code 09592 - High complexity, seen within 7 days of discharge. N17.0 Acute kidney failure with tubular necrosis Signed by: JEREMY ARAGON MD on 09/15/2024 at 12:05:07 PM Transcribed by: JEREMY ARAGON MD on 09/15/2024 at 12:05:07 PM documented in this encounter Plan of Treatment Not on file documented as of this encounter Visit Diagnoses Not on filedocumented in this encounter Care Teams Candy Forming Machine Operator Relationship Specialty Start Date End Date Chilo Rodriguez MD [address] [place] [address] PCP - General Internal Medicine 08/08/24 documented as of this encounter
--- OUTSIDE RECORDS SUMMARY | 2024-10-03 05:32 | XMS_ITS | Clinical Summary ---
Author Organization [facility] Address [address] [place] [address] Care Team Providers Care Bindery Operator Name Role Phone Marizol Rojas MD Primary Care Provider Allergies Active Allergy Reactions Criticality Noted Date Comments Adhesive 12/01/2023 tape Bacitracin 12/01/2023 Chlorhexidine Gluconate Itching,Rash Medium 08/25/2024 CHG catheter wipes caused intense burning, rash, and itching Medications metoprolol tartrate (LOPRESSOR) 50 mg tablet Take 1 tablet (50 mg total) by mouth 2 (two) times a day. 09/07/19 25 026 Active apixaban (ELIQUIS) 5 mg tablet Take 1 tablet (5 mg total) by mouth 2 (two) times a day. 09/07/19 Active albuterol 2.5 mg /3 mL (0.083 %) nebulizer solutionIndica tions:Shortnes s of breath Take 3 mL (2.5 mg total) by nebulization every 6 (six) hours if needed for wheezing. 09/07/19 25 026 Active B complex-vitami n C-folic acid (NEPHRO-OSCAR) 0.8 mg tablet Take 1 tablet by mouth 1 (one) time each day. 09/07/19 Active dilTIAZem CD (CARDIZEM CD) 120 mg 24 hr capsule Take 1 capsule (120 mg total) by mouth 1 (one) time each day. 09/07/19 Active diphenhydrAMIN E (BENADRYL) 25 mg capsule Take 1 capsule (25 mg total) by mouth every 6 (six) hours if needed for itching for up to 10 days. 09/07/19 Active hydrocortisone 1 % topical cream Apply topically 2 (two) times a day. 09/07/19 Active methocarbamoL 1,000 mg tablet Take 1,000 mg by mouth 4 (four) times a day for 10 days. 09/07/19 Active pantoprazole (PROTONIX) 40 mg EC tablet Take 1 tablet (40 mg total) by mouth 2 (two) times a day before meals. Do not crush, chew, or split. 09/07/19 Active sertraline (ZOLOFT) 25 mg tablet Take 1 tablet (25 mg total) by mouth at bedtime. 09/07/19 Active psyllium (METAMUCIL) 3.4 gram packet Take 1 packet by mouth 1 (one) time each day. 09/07/19 Active acetaminophen (acetaminophen Extra Strength) 500 mg tablet TAKE 2 TABS BY MOUTH EVERY 8 HOURS Discontinu ed(Stop Taking at Discharge) dronedarone (MULTAQ) 400 mg tablet Take 1 tablet (400 mg total) by mouth 2 (two) times a day with meals. Take 1 Tablet by mouth 2 times daily. - Oral Discontinu ed(Stop Taking at Discharge) furosemide (LASIX) 20 mg tablet Take 2 Tablets by mouth daily. - Oral Discontinu ed(Stop Taking at Discharge) metoprolol tartrate (LOPRESSOR) 25 mg tablet Take 1 tablet (25 mg total) by mouth 2 (two) times a day if needed (INCREASED HEART RATE). HR <100 bpm Discontinu ed(Stop Taking at Discharge) naproxen sodium (ANAPROX) 220 mg tablet Take 1 tablet (220 mg total) by mouth at bedtime. Discontinu ed(Stop Taking at Discharge) sildenafil (REVATIO) 20 mg tablet Take 1 tablet (20 mg total) by mouth 2 (two) times a day. Discontinu ed(Stop Taking at Discharge) rivaroxaban (Xarelto) 20 mg tablet TAKE 1 TABLET BY MOUTH EVERY DAY WITH SUPPER 30 tablet 6 01/25/20 Discontinu ed(Stop Taking at Discharge) Zepbound 5 mg/0.5 mL injection Inject 0.5 mL (5 mg total) under the skin every 7 (seven) days. Tuesday07/27/19 025 Discontinu ed(Stop Taking at Discharge) acetaminophen (TYLENOL) 500 mg tablet Take 2 tablets (1,000 mg total) by mouth every 6 (six) hours if needed for mild pain or fever - temperature GREATER than 38 C (100.4 F) for up to 10 days. 09/07/19 Active Problems Problem Noted Date Diagnosed Date Hemodialysis patient ([facility] V24) 08/10/2024 CRYSTAL (acute kidney injury) ([facility] V24) 08/08/19 Atrial fib/flutter, transient ([facility] V24, [facility] V28) 08/06/2024 Atrial fibrillation ([facility] V24, [facility] V28) 1 Dizziness 12/01/2023 Dyspnea 12/01/2023 Hypertension 12/01/2023 Morbid obesity with BMI of 5 0.0-59.9, adult ([facility] V24, [facility] V28) 12/01/2023 PVD (peripheral vascular disease) ([facility] V24) 12/01/2023 Sleep apnea 12/01/2023 Snoring 12/01/2023 Resolved Problems Problem Noted Date Diagnosed Date Resolved Date Volume overload 08/10/2024 09/03/2024 Acute pulmonary edema ([facility] V24, [facility] V28) 08/10/2024 09/03/2024 Bacteremia due to Streptococcus 08/07/2024 09/03/2024 Severe sepsis ([facility] V24, [facility] V28) 08/07/2024 09/03/2024 GI bleed 08/07/2024 09/03/2024 Cellulitis of right leg 08/07/202408/21 Atrial fibrillation with RVR (CMS/HCC V24, CMS/HCC V28) 08/06/2024 09/03/2024 Encounters Date Type Department Care Team Description 08/30/2024 Telephone [facility] - [address] [place] [id number] Gris Ventura MD 08/21/2024 11:40 AM EDT - 08/21/2024 4:40 PM EDT Surgery [facility] [address] [place] [address] Sara Lynch MD Insert or replace leadless PPM 08/08/2024 9:57 AM EDT Anesthesia Event [facility] ICU [address] [place] [address] Prakash Mahoney MD 08/08/2024 7:00 AM EDT Anesthesia Event [facility] Endoscopy [address] [place] [address] Dmitriy Lopez MD 08/06/2024 10:17 AM EDT - 09/13/2024 1:35 PM EDT Hospital Encounter [facility] Medical Surgical Unit [address] [place] [address] Trevor Howard, Bharti Crowe MD Bell, Alistair A, MD Levrault, Richard, DO Loiacono, Laurie, MD Rasul, Yar M, MD Surendran, MD Wilmar Miles James T, MD Mohani, Priya, MD Seralathan, Manikandan, MD Alam, Aroosa, MD Shortness of breath (Primary Dx); Atrial fib/flutter, transient (CMS/HCC V24, CMS/HCC V28); Atrial fibrillation, unspecified type (CMS/HCC V24, CMS/HCC V28); Acute renal failure, unspecified acute renal failure type (CMS/HCC V24); Bilateral cellulitis of lower leg; Atrial fibrillation with RVR ([facility] V24, [facility] V28); Acute upper GI bleed; Gastrointestinal hemorrhage, unspecified gastrointestinal hemorrhage type; Cellulitis of right leg; PVD (peripheral vascular disease) ([facility] V24); Permanent atrial fibrillation ([facility] V24, [facility] V28) Discharge Disposition: [facility] from Last 3 Months Surgical History Surgery Date Site/Laterality Comments CHOLECYSTECTOMY PROCEDURE: WI LAPAROSCOPY SURG CHOLECYSTECTOMY BREAST BIOPSY Right PROCEDURE: WI BIOPSY BREAST OPEN INCISIONAL; COMMENT: 2005 LAPAROSCOPIC GASTRIC BANDING PROCEDURE: LAP ADJUSTABLE GASTRIC BAND OTHER SURGICAL HISTORY PROCEDURE: ---- OTHER ----; COMMENT: cryo ablation of heart node for afib HERNIA REPAIR 2019 PROCEDURE: HISTORICAL HERNIA REPAIR/UMB Medical History Medical History Date Comments Hypertension 09/15/2019 DX:Hypertension Atrial fibrillation ([facility] V24, [facility] V28) 09/15/2019 DX:Atrial fibrillation ([facility]) Morbid obesity with BMI of 5 0.0-59.9, adult ([facility] V24, [facility] V28) 09/15/2019 DX:Morbid obesity wit h BMI of 50.0-59.9, adult ([facility]) Bariatric surgery status 09/15/2019 DX:Ash atric surgery status; COMMENT: Lap band 2007 Obesity DX:Obesity Cellulitis of leg DX:Cellulitis of leg Edema DX:Edema Insomnia DX:Insomnia Severe obesity ([facility] V24, [facility] V28) DX:Severe obesity ([facility]) Shingles DX:Shingles Shortness of breath DX:Shortness of [...] drink = 0.6 oz pur e alcohol) occassional Housing Instability Answer Date Recorde d Are you worried that in the next 2 months you may not have stable housing? No 08/06/2024 Food Access & Nutrition Answer Date Rec orded Do you have access to a vari ety of food including fruits and vegetables? Yes 08/06/2024 Access to Healthcare Answer Date Record ed Within the last 3 months, ho w many times did you visit the emergency department for your medical care? 2 08/06/2024 Health Literacy Answer Date Recorded How often do you need to hav e someone help you when you read instructions, pamphlets, or other written material from your doctor or pharmacy? Never 08/06/2024 Caregiver: How often do you need to have someone help you when you read instructions, pamphlets, or other written material from your doctor or pharmacy? Not on file 08/06/2024 Financial Risk Answer Date Recorded How hard is it for you to pa y for the very basics like food, housing, medical care, and air conditioning / heating? Not very hard 08/06/2024 Transportation Answer Date Recorded Has the lack of transportati on kept you from meetings, work, or from getting things needed for daily living? No Has the lack of transportati on kept you from medical appointments or from getting medications? No 08/06/2024 Social Isolation Answer Date Recorded How often do you feel lonely or isolated from th ose around you? Never 08/06/2024 Food Risk Answer Date Recorded Within the past 12 months we worried whether our food would run out before we got money to buy more. Never true 08/06/2024 Within the past 12 months th e food we bought just didn't last and we didn't have money to get more. Never true 08/06/2024 Dependent Care Answer Date Recorded Do you need help finding or paying for care for your loved ones. For example, child center assistant or elderly care for an older adult? No 08/06/2024 Education Answer Date Recorded Do you think completing more education or training, like finishing a GED, going to college, or learning a trade, would be helpful for you? No 08/06/2024 Employment and Income Answer Date Recor ded During the last four weeks, have you been actively looking for work? No 08/06/2024 Living Situation Answer Date Recorded What is your living situation? 0 08/06/2024 Interpersonal Safety Answer Date Record ed Physical Abuse 08/06/2024 Verbal Abuse 08/06/2024 Comments No Sex and Gender Information Value Date Recorded Sex Assigned at Not on file Legal Sex Female 11:55 AM EST Gender Identity Not on file Sexual Orientation Choose not to disclose 2024 4:36 PM EDT Obstetrics History Last Filed Vital Signs Vital Sign Reading Time Taken Comments Blood Pressure 97/68 09/13/2024 7:25 AM EDT Pulse 80 09/13/2024 7:25 AM EDT Temperature 35.8 C (96.5 F) 09/13/2024 7:25 AM EDT Respiratory Rate 17 09/13/2024 7:25 AM EDT Oxygen Saturation 100% 09/13/2024 8:00 AM EDT Inhaled Oxygen Concentration - - Weight 165 kg (364 lb 3.2 oz) 09/05/2024 11:43 A M EDT Height 167.6 cm (5' 6 ) 08/07/2024 3:48 PM EDT Body Mass Index 58.78 08/07/2024 3:48 PM EDT Plan of Treatment Upcoming Encounters Date Type Department Care Team (Late st Contact Info) Description 10/16/2024 1:40 PM EDT Office Visit [facility] Cardiology [facility] [address] [facility] [address] [place] [address] Anna Tate NP [address] [place] [address] 10/16/2024 2:30 PM EDT Ancillary Procedure [facility] [address] [facility] [address] [place] [address] Health Maintenance Due Date Last Done Comments Cervical Cancer Screening: Pap Smear 10/28/1980 Pneumococcal Vaccine: 50+ Years (1 of 1 - PCV) 10/28/2009 Zoster Vaccines (1 of 2) 10/28/2009 RSV Immunization Adult Patients (1 - Risk 60-74 years 1-dose series) 2019 Cholesterol Screening (Lipid Panel) 01/02/2020 HIV Screening 01/02/2020 Hepatitis C Screening 01/02/2020 Medicare Annual Wellness Visit 01/02/2020 COVID-19 Vaccine ( season) 2023 11/21/2020, 03/10/2020, 02/18/2020 Breast Cancer Screening 02/11/2024 02/11/20, 01/14/2021, 01/10/2020, Additional history exists Depression Screening 02/22/2024 Influenza Vaccine (#1) 2024 04/16/2024, 2020 Social Influencers of Health Screening 08/06/2025 08/06/2024 Hypertension/CHF/CAD Annual BMP Blood Test 09/12/2025 09/12/2024, 09/05/2024, 09/03/2024, Additional history exists DTaP,Tdap,and Td Vaccines (2 - Td or Tdap) 04/16/2034 04/16/2024 Colorectal Cancer Screening: Colonoscopy 05/03/2034 05/03/2024 HIB Vaccines Aged Out No longer eligi [...] age to complete this topic Meningococcal B Vaccine Aged Out No l onger eligible based on patient's age to complete this topic RSV Immunization Patients Under 20 months Aged Out No longer eligible based on patient's age to complete this topic Varicella Vaccines Aged Out No longer eligible based on patient's age to complete this topic Medical Devices Implanted Type Area Grout Worker Device Identifier Shelf Expiration Date Model / Serial / Lot Pacemaker Leadless Micra - [id number] - [id number] Implanted:Qty : 1 on 08/21/2024 by Sara Lynch MD at [facility] Cardiac Pacemaker Left: Chest Wall [employer] - CARDIAC RHYTH[facility] [id number] 04/06/2025 [id number] / [id number] / Cath Dial W/Vt Kt [id number] Palindrome Precision - [id number] - [id number] Implanted:Qty : 1 on 08/23/2024 by Bambi Pollock MD at [facility] Dialysis Catheters Right: Chest Wall [facility] [id number] 03/23/2029 [id number] / [id number] 40P / [id number] Agent Hydrogel Hemostat Purastat 3ml - Scat 621-062 - [id number] Implanted:Qty : 1 on 08/14/2024 at [facility] Hemostasis N/A: Duodenum 3D [employer] [id number] 621-062 / CAT 621-062 / CAT 621-062 System Perclose Proglide 6f - [id number] Implanted:Qty : 1 on 08/21/2024 by Sara Lynch MD at [facility] Vascular Closure Devices Right: Groin [facility] [id number] 12/21/2025 [id number] / / [id number] Procedures Procedure Name Priority Date/Time Associated Diagnosis Comments ECG ANNOTATED 09/17/2024 OXYGEN THERAPY, ADULT Routine 09/12/2024 8:02 AM EDT ALANINE AMINOTRANSFERASE Routine 09/12/2024 6:12 AM EDT ASPARTATE AMINOTRANSFERASE Routine 09/12/2024 6:12 AM EDT CREATININE, SERUM Timed 09/12/2024 6:1 2 AM EDT COMPLETE BLOOD COUNT Timed 09/12/2024 6:12 AM EDT OXYGEN THERAPY, ADULT Routine 09/11/2024 8:00 PM EDT HEMODIALYSIS INPATIENT Routine 12:55 PM EDT OXYGEN THERAPY, ADULT Routine 09/11/2024 8:03 AM EDT CPAP NIV Routine 09/10/2024 10:00 PM EDT OXYGEN THERAPY, ADULT Routine 09/10/2024 8:00 PM EDT OXYGEN THERAPY, ADULT Routine 09/10/2024 8:02 AM EDT CPAP NIV Routine 09/09/2024 10:00 PM EDT OXYGEN THERAPY, ADULT Routine 09/09/2024 8:00 PM EDT OXYGEN THERAPY, ADULT Routine 09/09/2024 8:00 AM EDT COMPLETE BLOOD COUNT Timed 09/09/2024 5:43 AM EDT SST - GOLD Routine 09/09/2024 5:40 AM EDT EXTRA TUBES Routine 09/09/2024 5:40 AM EDT CPAP NIV Routine 09/08/2024 10:00 PM EDT OXYGEN THERAPY, ADULT Routine 09/08/2024 8:00 PM EDT HEMODIALYSIS INPATIENT Routine 6:00 PM EDT OXYGEN THERAPY, ADULT Routine 09/08/2024 8:00 AM EDT OXYGEN THERAPY, ADULT Routine 09/07/2024 8:00 PM EDT OXYGEN THERAPY, ADULT Routine 09/07/2024 8:02 AM EDT HEMODIALYSIS INPATIENT Routine 7:02 AM EDT OXYGEN THERAPY, ADULT Routine 09/06/2024 8:00 PM EDT OXYGEN THERAPY, ADULT Routine 09/06/2024 8:02 AM EDT SST - GOLD Routine 09/06/2024 5:23 AM EDT EXTRA TUBES Routine 09/06/2024 5:23 AM EDT COMPLETE BLOOD COUNT Timed 09/06/2024 5:23 AM EDT CPAP NIV Routine 09/05/2024 10:00 PM EDT OXYGEN THERAPY, ADULT Routine 09/05/2024 8:00 PM EDT OXYGEN THERAPY, ADULT Routine 09/05/2024 8:02 AM EDT LAVENDER - EDTA Routine 09/05/2024 6:08 AM EDT EXTRA TUBES Routine 09/05/2024 6:08 AM EDT CREATININE, SERUM Timed 09/05/2024 6:0 8 AM EDT CPAP NIV Routine 09/04/2024 10:00 PM EDT OXYGEN THERAPY, ADULT Routine 09/04/2024 8:00 PM EDT HEMODIALYSIS INPATIENT Routine 12:31 PM EDT OXYGEN THERAPY, ADULT Routine 09/04/2024 8:02 AM EDT CPAP NIV Routine 09/03/2024 10:00 PM EDT OXYGEN THERAPY, ADULT Routine 09/03/2024 8:00 PM EDT OXYGEN THERAPY, ADULT Routine 09/03/2024 8:01 AM EDT HEPATITIS B SURFACE ANTIGEN WITH CONFIRMATION Add-On 09/03/2024 5:42 AM EDT HEPATITIS B SURFACE ANTIBODY Add-On 09/03/2024 5:42 AM EDT CBC WITH AUTO DIFFERENTIAL Routine 09/03/2024 5:42 AM EDT CBC AND DIFFERENTIAL Routine 09/03/2024 5:42 AM EDT BASIC METABOLIC PANEL Routine 09/03/2024 5:42 AM EDT COMPLETE BLOOD COUNT Timed 09/03/2024 5:42 AM EDT RENAL FUNCTION PANEL Routine 09/03/2024 12:24 AM EDT CPAP NIV Routine 09/02/2024 10:00 PM EDT OXYGEN THERAPY, ADULT Routine 09/02/2024 8:00 PM EDT HEMODIALYSIS INPATIENT Routine 9:09 AM EDT OXYGEN THERAPY, ADULT Routine 09/02/2024 8:00 AM EDT CPAP NIV Routine 09/01/2024 10:00 PM EDT OXYGEN THERAPY, ADULT Routine 09/01/2024 8:00 PM EDT OXYGEN THERAPY, ADULT Routine 09/01/2024 8:00 AM EDT CPAP NIV Routine 08/31/2024 10:00 PM EDT OXYGEN THERAPY, ADULT Routine 08/31/2024 8:00 PM EDT OXYGEN THERAPY, ADULT Routine 08/31/2024 8:13 AM EDT OXYGEN THERAPY, ADULT Routine 08/31/2024 8:13 AM EDT SST - GOLD Routine 08/31/2024 5:47 AM EDT EXTRA TUBES Routine 08/31/2024 5:47 AM EDT COMPLETE BLOOD COUNT Timed 08/31/2024 5:47 AM EDT HEMODIALYSIS INPATIENT Routine 11:36 AM EDT OXYGEN THERAPY, ADULT Routine 08/30/2024 8:02 AM EDT CPAP NIV Routine 08/29/2024 10:00 PM EDT OXYGEN THERAPY, ADULT Routine 08/29/2024 8:00 PM EDT OXYGEN THERAPY, ADULT Routine 08/29/2024 8:02 AM EDT CBC WITH AUTO DIFFERENTIAL Routine 08/29/2024 5:53 AM EDT CBC AND DIFFERENTIAL Routine 08/29/2024 5:53 AM EDT BASIC METABOLIC PANEL Routine 08/29/2024 5:52 AM EDT CREATININE, SERUM Timed 08/29/2024 5:5 2 AM EDT CPAP NIV Routine 08/28/2024 10:00 PM EDT OXYGEN THERAPY, ADULT Routine 08/28/2024 8:01 PM EDT HEMODIALYSIS INPATIENT Routine 8:26 AM EDT OXYGEN THERAPY, ADULT Routine 08/28/2024 8:02 AM EDT CBC WITH AUTO DIFFERENTIAL Routine 08/28/2024 7:30 AM EDT BASIC METABOLIC PANEL Routine 08/28/2024 7:30 AM EDT CBC AND DIFFERENTIAL Routine 08/28/2024 7:30 AM EDT MAGNESIUM Routine 08/28/2024 7:30 AM EDT CPAP NIV Routine 08/27/2024 10:01 PM EDT OXYGEN THERAPY, ADULT Routine 08/27/2024 8:01 PM EDT HEMODIALYSIS INPATIENT Routine 8:52 AM EDT BASIC METABOLIC PANEL STAT 08/27/2024 8:03 AM EDT COMPLETE BLOOD COUNT STAT 08/27/2024 8:03 AM EDT OXYGEN THERAPY, ADULT Routine 08/27/2024 8:02 AM EDT HEMODIALYSIS INPATIENT Routine 6:54 AM EDT CPAP NIV Routine 08/26/2024 10:00 PM EDT OXYGEN THERAPY, ADULT Routine 08/26/2024 8:00 PM EDT OXYGEN THERAPY, ADULT Routine 08/26/2024 8:00 AM EDT PHOSPHORUS STAT Add-on 08/26/2024 6:27 AM EDT MAGNESIUM STAT Add-on 08/26/2024 6:27 AM EDT CBC WITH AUTO DIFFERENTIAL Routine 08/26/2024 6:27 AM EDT BASIC METABOLIC PANEL Routine 08/26/2024 6:27 AM EDT CBC AND DIFFERENTIAL Routine 08/26/2024 6:27 AM EDT CPAP NIV Routine 08/25/2024 10:00 PM EDT OXYGEN THERAPY, ADULT Routine 08/25/2024 8:00 PM EDT OXYGEN THERAPY, ADULT Routine 08/25/2024 8:00 AM EDT SST - GOLD Routine 08/25/2024 5:50 AM EDT EXTRA TUBES Routine 08/25/2024 5:50 AM EDT COMPLETE BLOOD COUNT Timed 08/25/2024 5:50 AM EDT CPAP NIV Routine 08/24/2024 10:00 PM EDT OXYGEN THERAPY, ADULT Routine 08/24/2024 8:00 PM EDT ACTIVATED PARTIAL THROMBOPLASTIN TIME STAT 08/24/2024 3:32 PM EDT PROTHROMBIN TIME WITH INR STAT 08/24/2024 3:32 PM EDT OXYGEN THERAPY, ADULT Routine 08/24/2024 8:00 AM EDT CBC WITH AUTO DIFFERENTIAL Routine 08/24/2024 5:36 AM EDT CBC AND DIFFERENTIAL Routine 08/24/2024 5:36 AM EDT CALCIUM, IONIZED Routine 08/24/2024 5:36 AM EDT BASIC METABOLIC PANEL Routine 08/24/2024 5:36 AM EDT PHOSPHORUS Routine 08/24/2024 5:36 AM EDT MAGNESIUM Routine 08/24/2024 5:36 AM EDT LT BLUE - NA CITRATE Routine 08/24/2024 5:31 AM EDT EXTRA TUBES Routine 08/24/2024 5:31 AM EDT XR CHEST 1 VIEW Routine 08/24/2024 5:30 AM EDT HEMODIALYSIS INPATIENT Routine 10:32 PM EDT OXYGEN THERAPY, ADULT Routine 08/23/2024 8:00 PM EDT IR INSERT TUNNELED CVC WO PORT OR PUMP MORE 5YRS RIGHT Routine 08/23/2024 2:33 PM EDT OXYGEN THERAPY, ADULT Routine 08/23/2024 8:02 AM EDT VENOUS BLOOD GAS Routine 08/23/2024 6:24 AM EDT CBC WITH AUTO DIFFERENTIAL Routine 08/23/2024 6:23 AM EDT COMPREHENSIVE METABOLIC PANEL Routine 08/23/2024 6:23 AM EDT PHOSPHORUS Routine 08/23/2024 6:23 AM EDT MAGNESIUM Routine 08/23/2024 6:23 AM EDT CALCIUM, IONIZED Routine 08/23/2024 6:23 AM EDT CBC AND DIFFERENTIAL Routine 08/23/2024 6:23 AM EDT LACTATE Routine 08/23/2024 6:23 AM EDT CPAP NIV Routine 08/22/2024 10:00 PM EDT OXYGEN THERAPY, ADULT Routine 08/22/2024 8:00 PM EDT OXYGEN THERAPY, ADULT Routine 08/22/2024 8:02 AM EDT CBC WITH AUTO DIFFERENTIAL Routine 08/22/2024 4:46 AM EDT PROCALCITONIN Routine 08/22/2024 4:46 AM EDT PHOSPHORUS Routine 08/22/2024 4:46 AM EDT MAGNESIUM Routine 08/22/2024 4:46 AM EDT CALCIUM, IONIZED Routine 08/22/2024 4:46 AM EDT COMPREHENSIVE METABOLIC PANEL Routine 08/22/2024 4:46 AM EDT CBC AND DIFFERENTIAL Routine 08/22/2024 4:46 AM EDT HEMODIALYSIS INPATIENT Routine 10:24 PM EDT CPAP NIV Routine 08/21/2024 10:00 PM EDT OXYGEN THERAPY, ADULT Routine 08/21/2024 8:00 PM EDT XR CHEST 1 VIEW Routine 08/21/2024 3:03 PM EDT AV NODE ABLATION Routine 08/21/2024 1:47 PM EDT Atrial fib/flutter, transient (CMS/HCC V24, CMS/HCC V28) INSERT / REPLACE LEADLESS PPM Routine 08/21/2024 1:47 PM EDT Atrial fib/flutter, transient (CMS/HCC V24, CMS/HCC V28) OXYGEN THERAPY, ADULT Routine 08/21/2024 8:02 AM EDT XR CHEST 1 VIEW Routine 08/21/2024 5:20 AM EDT CBC WITH AUTO DIFFERENTIAL Routine 08/21/2024 4:15 AM EDT COMPREHENSIVE METABOLIC PANEL Routine 08/21/2024 4:15 AM EDT PHOSPHORUS Routine 08/21/2024 4:15 AM EDT MAGNESIUM Routine 08/21/2024 4:15 AM EDT CALCIUM, IONIZED Routine 08/21/2024 4:15 AM EDT CBC AND DIFFERENTIAL Routine 08/21/2024 4:15 AM EDT CPAP NIV Routine 08/20/2024 10:00 PM EDT OXYGEN THERAPY, ADULT Routine 08/20/2024 8:00 PM EDT OXYGEN THERAPY, ADULT Routine 08/20/2024 8:02 AM EDT VAS US DUPLEX LOWER EXT VENOUS RIGHT STAT 08/20/2024 6:57 AM EDT Bilateral cellulitis of lower leg Cellulitis of right leg PVD (peripheral vascular disease) (CMS/[facility] V24) CBC WITH AUTO DIFFERENTIAL Routine 08/20/2024 4:03 AM EDT CALCIUM, IONIZED Routine 08/20/2024 4:03 AM EDT BASIC METABOLIC PANEL Routine 08/20/2024 4:03 AM EDT CBC AND DIFFERENTIAL Routine 08/20/2024 4:03 AM EDT VANCOMYCIN, RANDOM Routine 08/20/2024 4: 03 AM EDT CPAP NIV Routine 08/19/2024 10:00 PM EDT OXYGEN THERAPY, ADULT Routine 08/19/2024 8:00 PM EDT HEMODIALYSIS INPATIENT Routine 12:59 PM EDT OXYGEN THERAPY, ADULT Routine 08/19/2024 8:01 AM EDT CBC WITH AUTO DIFFERENTIAL Routine 08/19/2024 4:15 AM EDT COMPLETE BLOOD COUNT Timed 08/19/2024 4:15 AM EDT CBC AND DIFFERENTIAL Routine 08/19/2024 4:15 AM EDT CALCIUM, IONIZED Routine 08/19/2024 4:15 AM EDT BASIC METABOLIC PANEL Routine 08/19/2024 4:15 AM EDT PHOSPHORUS Routine 08/19/2024 4:15 AM EDT MAGNESIUM Routine 08/19/2024 4:15 AM EDT CPAP NIV Routine 08/18/2024 10:00 PM EDT OXYGEN THERAPY, ADULT Routine 08/18/2024 8:00 PM EDT OXYGEN THERAPY, ADULT Routine 08/18/2024 8:01 AM EDT XR CHEST 1 VIEW Routine 08/18/2024 6:13 AM EDT CBC WITH AUTO DIFFERENTIAL Routine 08/18/2024 4:44 AM EDT CBC AND DIFFERENTIAL Routine 08/18/2024 4:44 AM EDT CALCIUM, IONIZED Routine 08/18/2024 4:44 AM EDT BASIC METABOLIC PANEL Routine 08/18/2024 4:44 AM EDT HEPATIC FUNCTION PANEL Routine 4:44 AM EDT PHOSPHORUS Routine 08/18/2024 4:44 AM EDT MAGNESIUM Routine 08/18/2024 4:44 AM EDT CENTRAL LINE BLOOD GAS Routine 4:44 AM EDT CPAP NIV Routine 08/17/2024 10:00 PM EDT OXYGEN THERAPY, ADULT Routine 08/17/2024 8:00 PM EDT HEMODIALYSIS INPATIENT Routine 6:59 PM EDT OXYGEN THERAPY, ADULT Routine 08/17/2024 8:02 AM EDT VANCOMYCIN, RANDOM Routine 08/17/2024 5: 52 AM EDT CBC WITH AUTO DIFFERENTIAL Routine 08/17/2024 4:04 AM EDT CBC AND DIFFERENTIAL Routine 08/17/2024 4:04 AM EDT PROCALCITONIN Routine 08/17/2024 4:04 AM EDT PHOSPHORUS Routine 08/17/2024 4:04 AM EDT MAGNESIUM Routine 08/17/2024 4:04 AM EDT CALCIUM, IONIZED Routine 08/17/2024 4:04 AM EDT BASIC METABOLIC PANEL Routine 08/17/2024 4:04 AM EDT HEMODIALYSIS INPATIENT Routine 1:16 AM EDT OXYGEN THERAPY, ADULT Routine 08/16/2024 8:01 PM EDT CPAP NIV Routine 08/16/2024 5:24 PM EDT US EXTREMITY NONVASCULAR LIMITED RIGHT Routine 08/16/2024 4:25 PM EDT US EXTREMITY NONVASCULAR LIMITED LEFT Routine 08/16/2024 4:24 PM EDT PHOSPHORUS Routine 08/16/2024 3:13 PM EDT MAGNESIUM Routine 08/16/2024 3:13 PM EDT CALCIUM, IONIZED Routine 08/16/2024 3:13 PM EDT BASIC METABOLIC PANEL Routine 08/16/2024 3:13 PM EDT OXYGEN THERAPY, ADULT Routine 08/16/2024 8:02 AM EDT PROCALCITONIN Routine 08/16/2024 4:05 AM EDT MANUAL DIFFERENTIAL - SYSM[facility] WAM Routine 08/16/2024 4:00 AM EDT VANCOMYCIN, RANDOM Routine 08/16/2024 4: 00 AM EDT CBC WITH AUTO DIFFERENTIAL Routine 08/16/2024 4:00 AM EDT CBC AND DIFFERENTIAL Routine 08/16/2024 4:00 AM EDT PHOSPHORUS Routine 08/16/2024 4:00 AM EDT MAGNESIUM Routine 08/16/2024 4:00 AM EDT CALCIUM, IONIZED Routine 08/16/2024 4:00 AM EDT BASIC METABOLIC PANEL Routine 08/16/2024 4:00 AM EDT OXYGEN THERAPY, ADULT Routine 08/15/2024 8:01 PM EDT ARTERIAL BLOOD GAS Routine 08/15/2024 4: 30 PM EDT OXYGEN THERAPY, ADULT Routine 08/15/2024 8:20 AM EDT OXYGEN THERAPY, ADULT Routine 08/15/2024 8:20 AM EDT OXYGEN THERAPY, ADULT Routine 08/15/2024 8:20 AM EDT EXTUBATION Routine 08/15/2024 7:52 AM EDT XR CHEST 1 VIEW Routine 08/15/2024 5:05 AM EDT MANUAL DIFFERENTIAL - [facility] WAM Routine 08/15/2024 4:51 AM EDT CBC WITH AUTO DIFFERENTIAL Routine 08/15/2024 4:51 AM EDT CBC AND DIFFERENTIAL Routine 08/15/2024 4:51 AM EDT PROCALCITONIN Routine 08/15/2024 4:51 AM EDT PHOSPHORUS Routine 08/15/2024 4:51 AM EDT MAGNESIUM Routine 08/15/2024 4:51 AM EDT CALCIUM, IONIZED Routine 08/15/2024 4:51 AM EDT BASIC METABOLIC PANEL Routine 08/15/2024 4:51 AM EDT TISSUE EXAM Routine 08/14/2024 11:43 AM EDT Shortness of breath Atrial fib/flutter, transient (CMS/HCC V24, CMS/HCC V28) Atrial fibrillation, unspecified type (CMS/HCC V24, CMS/HCC V28) Acute renal failure, unspecified acute renal failure type (CMS/HCC V24) Bilateral cellulitis of lower leg Atrial fibrillation with RVR (CMS/HCC V24, CMS/HCC V28) Acute upper GI bleed Gastrointestinal hemorrhage, unspecified gastrointestinal hemorrhage type EGD Routine 08/14/2024 11:14 AM EDT Acute upper GI bleed TRANSFUSE RED BLOOD CELLS Routine 08/14/2024 10:59 AM EDT TYPE AND SCREEN Routine 08/14/2024 6:19 AM EDT PREPARE RBC Routine 08/14/2024 6:06 AM EDT XR CHEST 1 VIEW Routine 08/14/2024 5:07 AM EDT ARTERIAL BLOOD GAS Routine 08/14/2024 4: 19 AM EDT MANUAL DIFFERENTIAL - [facility] WAM Routine 08/14/2024 4:11 AM EDT VANCOMYCIN, RANDOM Add-On 08/14/2024 4: 11 AM EDT CBC WITH AUTO DIFFERENTIAL Routine 08/14/2024 4:11 AM EDT CBC AND DIFFERENTIAL Routine 08/14/2024 4:11 AM EDT AMMONIA Routine 08/14/2024 4:11 AM EDT PROCALCITONIN Routine 08/14/2024 4:11 AM EDT PHOSPHORUS Routine 08/14/2024 4:11 AM EDT MAGNESIUM Routine 08/14/2024 4:11 AM EDT CALCIUM, IONIZED Routine 08/14/2024 4:11 AM EDT BASIC METABOLIC PANEL Routine 08/14/2024 4:11 AM EDT VENTILATOR, ADULT Routine 08/13/2024 8:0 0 PM EDT HEMODIALYSIS INPATIENT Routine 10:25 AM EDT VENTILATOR, ADULT Routine 08/13/2024 8:0 2 AM EDT XR CHEST 1 VIEW Routine 08/13/2024 5:37 AM EDT MANUAL DIFFERENTIAL - [facility] WAM Routine 08/13/2024 4:24 AM EDT CBC WITH AUTO DIFFERENTIAL Routine 08/13/2024 4:24 AM EDT LACTATE Routine 08/13/2024 4:24 AM EDT CBC AND DIFFERENTIAL Routine 08/13/2024 4:24 AM EDT CALCIUM, IONIZED Routine 08/13/2024 4:24 AM EDT BASIC METABOLIC PANEL Routine 08/13/2024 4:24 AM EDT VANCOMYCIN, RANDOM Routine 08/13/2024 4: 24 AM EDT HEPATIC FUNCTION PANEL Routine 4:24 AM EDT PHOSPHORUS Routine 08/13/2024 4:24 AM EDT MAGNESIUM Routine 08/13/2024 4:24 AM EDT ARTERIAL BLOOD GAS Routine 08/13/2024 4:04 AM EDT CENTRAL LINE BLOOD GAS Routine 3:54 PM EDT HEMODIALYSIS INPATIENT Routine 2:57 PM EDT MANUAL DIFFERENTIAL - [facility]AM Routine 08/12/2024 2:37 PM EDT CBC WITH AUTO DIFFERENTIAL Routine 08/12/2024 2:37 PM EDT CBC AND DIFFERENTIAL Routine 08/12/2024 2:37 PM EDT TRIGLYCERIDES Timed 08/12/2024 8:51 AM EDT VENTILATOR, ADULT Routine 08/12/2024 8:0 1 AM EDT XR CHEST 1 VIEW Routine 08/12/2024 5:45 AM EDT MANUAL DIFFERENTIAL - [facility]AM Routine 08/12/2024 4:48 AM EDT CBC WITH AUTO DIFFERENTIAL Routine 08/12/2024 4:48 AM EDT BASIC METABOLIC PANEL Routine 08/12/2024 4:48 AM EDT CALCIUM, IONIZED Routine 08/12/2024 4:48 AM EDT CBC AND DIFFERENTIAL Routine 08/12/2024 4:48 AM EDT PHOSPHORUS Routine 08/12/2024 4:48 AM EDT MAGNESIUM Routine 08/12/2024 4:48 AM EDT CENTRAL LINE BLOOD GAS Routine 4:48 AM EDT XR CHEST 1 VIEW Routine 08/11/2024 5:25 AM EDT MANUAL DIFFERENTIAL - [facility]AM Routine 08/11/2024 4:41 AM EDT CENTRAL LINE BLOOD GAS Routine 4:41 AM EDT VANCOMYCIN, RANDOM Routine 08/11/2024 4: 41 AM EDT CBC WITH AUTO DIFFERENTIAL Routine 08/11/2024 4:41 AM EDT PROCALCITONIN Routine 08/11/2024 4:41 AM EDT COMPREHENSIVE METABOLIC PANEL Routine 08/11/2024 4:41 AM EDT PHOSPHORUS Routine 08/11/2024 4:41 AM EDT MAGNESIUM Routine 08/11/2024 4:41 AM EDT CALCIUM, IONIZED Routine 08/11/2024 4:41 AM EDT CBC AND DIFFERENTIAL Routine 08/11/2024 4:41 AM EDT LACTATE Routine 08/11/2024 4:41 AM EDT VENTILATOR, ADULT Routine 08/10/2024 8:0 1 PM EDT HEMODIALYSIS INPATIENT Routine 4:58 PM EDT ECG 12-LEAD Routine 08/10/2024 1:05 PM EDT TRIGLYCERIDES Timed 08/10/2024 12:48 PM EDT CALCIUM, IONIZED Routine 08/10/2024 12:45 PM EDT MAGNESIUM Routine 08/10/2024 12:45 PM EDT BASIC METABOLIC PANEL Routine 08/10/2024 12:45 PM EDT VENTILATOR, ADULT Routine 08/10/2024 8:0 2 AM EDT VENTILATOR, ADULT Routine 08/10/2024 7:5 5 AM EDT VENTILATOR, ADULT Routine 08/10/2024 7:5 5 AM EDT XR CHEST 1 VIEW Routine 08/10/2024 5:46 AM EDT MANUAL DIFFERENTIAL - [facility]AM Routine 08/10/2024 4:05 AM EDT PROCALCITONIN Add-On 08/10/2024 4:05 AM EDT VANCOMYCIN, RANDOM Routine 08/10/2024 4: 05 AM EDT CBC WITH AUTO DIFFERENTIAL Routine 08/10/2024 4:05 AM EDT AMMONIA Routine 08/10/2024 4:05 AM EDT PHOSPHORUS Routine 08/10/2024 4:05 AM EDT MAGNESIUM Routine 08/10/2024 4:05 AM EDT CALCIUM, IONIZED Routine 08/10/2024 4:05 AM EDT CBC AND DIFFERENTIAL Routine 08/10/2024 4:05 AM EDT LACTATE Routine 08/10/2024 4:05 AM EDT HEMOGLOBIN AND HEMATOCRIT Timed 08/09/2024 11:34 PM EDT VENTILATOR, ADULT Routine 08/09/2024 7:4 3 PM EDT VENTILATOR, ADULT Routine 08/09/2024 7:4 3 PM EDT CENTRAL LINE BLOOD GAS Routine 7:36 PM EDT MANUAL DIFFERENTIAL - [facility]AM Routine 08/09/2024 7:34 PM EDT CBC WITH AUTO DIFFERENTIAL Routine 08/09/2024 7:34 PM EDT MAGNESIUM Routine 08/09/2024 7:34 PM EDT CALCIUM, IONIZED Routine 08/09/2024 7:34 PM EDT CBC AND DIFFERENTIAL Routine 08/09/2024 7:34 PM EDT COMPREHENSIVE METABOLIC PANEL Routine 08/09/2024 7:34 PM EDT COMPREHENSIVE METABOLIC PANEL Add-On 08/09/2024 5:55 PM EDT PHOSPHORUS Routine 08/09/2024 5:55 PM EDT MAGNESIUM Routine 08/09/2024 5:55 PM EDT CALCIUM, IONIZED Routine 08/09/2024 5:55 PM EDT BASIC METABOLIC PANEL Routine 08/09/2024 5:55 PM EDT HEMOGLOBIN AND HEMATOCRIT Timed 08/09/2024 5:55 PM EDT HEMODIALYSIS INPATIENT Routine 1:49 PM EDT POCT GLUCOSE BLOOD Routine 08/09/2024 11:54 AM EDT AMMONIA Routine 08/09/2024 11:47 AM EDT HEMODIALYSIS INPATIENT Routine 11:44 AM EDT CULTURE BLOOD STAT 08/09/2024 11:44 AM EDT CULTURE BLOOD STAT 08/09/2024 11:44 AM EDT HEPATITIS B SURFACE ANTIBODY QUANTITATIVE Add-On 08/09/2024 11:41 AM EDT HEPATITIS B SURFACE ANTIGEN WITH CONFIRMATION Add-On 08/09/2024 11:41 AM EDT SST - GOLD Routine 08/09/2024 11:41 AM EDT EXTRA TUBES Routine 08/09/2024 11:41 AM EDT EGD Routine 08/09/2024 11:33 AM EDT Gastrointestinal hemorrhage, unspecified gastrointestinal hemorrhage type HEMOGLOBIN AND HEMATOCRIT Timed 08/09/2024 9:47 AM EDT MAGNESIUM Routine 08/09/2024 9:47 AM EDT BASIC METABOLIC PANEL Routine 08/09/2024 9:47 AM EDT VANCOMYCIN, TROUGH Timed 08/09/2024 9: 47 AM EDT ECG 12-LEAD Routine 08/09/2024 8:55 AM EDT ARTERIAL BLOOD GAS Routine 08/09/2024 6: 14 AM EDT XR CHEST 1 VIEW Routine 08/09/2024 4:37 AM EDT MANUAL DIFFERENTIAL - [facility] WAM Routine 08/09/2024 4:16 AM EDT HEMOGLOBIN AND HEMATOCRIT Timed 08/09/2024 4:16 AM EDT CBC WITH AUTO DIFFERENTIAL Routine 08/09/2024 4:16 AM EDT PHOSPHORUS Routine 08/09/2024 4:16 AM EDT MAGNESIUM Routine 08/09/2024 4:16 AM EDT CALCIUM, IONIZED Routine 08/09/2024 4:16 AM EDT CBC AND DIFFERENTIAL Routine 08/09/2024 4:16 AM EDT LACTATE Routine 08/09/2024 4:16 AM EDT HEPATIC FUNCTION PANEL Routine 4:16 AM EDT MANUAL DIFFERENTIAL - [facility] WAM Routine 08/09/2024 12:01 AM EDT CBC WITH AUTO DIFFERENTIAL Routine 08/09/2024 12:01 AM EDT CBC AND DIFFERENTIAL Routine 08/09/2024 12:01 AM EDT WI CATHETERIZATION/CANNUL ATION ARTERIAL SAMPLE/MONITORING/CANDELARIA SFUSION PERC Routine 08/08/2024 10:24 PM EDT Acute renal failure, unspecified acute renal failure type (CMS/HCC V24) WI INSERTION NON-TUNNELED CENTRALLY INSERTED CENTRAL VENOUS CATH 5 YRS/> Routine 08/08/2024 10:21 PM EDT Acute renal failure, unspecified acute renal failure type (CMS/HCC V24) XR CHEST 1 VIEW Routine 08/08/2024 10:05 PM EDT TRANSFUSE RED BLOOD CELLS Routine 08/08/2024 9:00 PM EDT POCT GLUCOSE BLOOD Routine 08/08/2024 6: 32 PM EDT TRANSFUSE RED BLOOD CELLS Routine 08/08/2024 6:28 PM EDT VENTILATOR, ADULT Routine 08/08/2024 5:2 0 PM EDT VENTILATOR, ADULT Routine 08/08/2024 5:2 0 PM EDT PREPARE RBC Routine 08/08/2024 5:09 PM EDT MANUAL DIFFERENTIAL - [facility] WAM Routine 08/08/2024 4:22 PM EDT CBC WITH AUTO DIFFERENTIAL Add-On 08/08/2024 4:22 PM EDT CBC AND DIFFERENTIAL Add-On 08/08/2024 4:22 PM EDT HEMOGLOBIN AND HEMATOCRIT Timed 08/08/2024 4:22 PM EDT CREATININE, URINE, RANDOM Routine 08/08/2024 2:21 PM EDT UREA NITROGEN, URINE Routine 08/08/2024 2:21 PM EDT SODIUM, URINE, RANDOM Routine 08/08/2024 2:21 PM EDT PROTEIN AND CREATININE WITH RATIO, URINE Routine 08/08/2024 2:21 PM EDT URINALYSIS WITH REFLEX MICROSCOPIC Routine 08/08/2024 2:21 PM EDT URINALYSIS WITH REFLEX MICROSCOPIC Routine 08/08/2024 2:21 PM EDT CULTURE SPUTUM Routine 08/08/2024 2:18 PM EDT EGD Routine 08/08/2024 12:00 PM EDT Acute upper GI bleed TRANSFUSE RED BLOOD CELLS Routine 08/08/2024 11:36 AM EDT XR CHEST 1 VIEW Routine 08/08/2024 11:00 AM EDT ARTERIAL BLOOD GAS Routine 08/08/2024 10:41 AM EDT MAGNESIUM Add-On 08/08/2024 10:40 AM EDT TRIGLYCERIDES Timed 08/08/2024 10:40 AM EDT HEMOGLOBIN AND HEMATOCRIT Timed 08/08/2024 10:40 AM EDT PREPARE RBC Routine 08/08/2024 10:10 AM EDT TH AN ENDOTRACHEAL(NO CHARGE) Routine 08/08/2024 9:58 AM EDT VENTILATOR, ADULT Routine 08/08/2024 9:3 5 AM EDT POCT GLUCOSE BLOOD Routine 08/08/2024 7: 03 AM EDT MANUAL DIFFERENTIAL - SYSM[facility] WAM Routine 08/08/2024 4:13 AM EDT CORTISOL Add-On 08/08/2024 4:13 AM EDT CBC WITH AUTO DIFFERENTIAL Routine 08/08/2024 4:13 AM EDT CBC AND DIFFERENTIAL Routine 08/08/2024 4:13 AM EDT PROTHROMBIN TIME WITH INR Routine 08/08/2024 4:13 AM EDT PROCALCITONIN Routine 08/08/2024 4:13 AM EDT PHOSPHORUS Routine 08/08/2024 4:13 AM EDT MAGNESIUM Routine 08/08/2024 4:13 AM EDT CALCIUM, IONIZED Routine 08/08/2024 4:13 AM EDT BASIC METABOLIC PANEL Routine 08/08/2024 4:13 AM EDT C3 COMPLEMENT Add-On 08/07/2024 10:55 PM EDT HEMOGLOBIN AND HEMATOCRIT Timed 08/07/2024 10:55 PM EDT C4 COMPLEMENT Add-On 08/07/2024 10:55 PM EDT MRSA PCR Routine 08/07/2024 8:10 PM EDT TRANSFUSE RED BLOOD CELLS Routine 08/07/2024 6:23 PM EDT CULTURE BLOOD STAT 08/07/2024 5:02 PM EDT CULTURE BLOOD STAT 08/07/2024 4:51 PM EDT TRANSTHORACIC ECHOCARDIOGRAM (TTE) LIMITED COLOR FLOW & DOPPLER Routine 08/07/2024 4:28 PM EDT Atrial fibrillation with RVR (CMS/HCC V24, CMS/HCC V28) FIBRINOGEN Routine 08/07/2024 3:56 PM EDT PROTHROMBIN TIME WITH INR Routine 08/07/2024 3:56 PM EDT HEMOGLOBIN AND HEMATOCRIT Timed 08/07/2024 3:56 PM EDT TYPE AND SCREEN Routine 08/07/2024 3:55 PM EDT PREPARE RBC Routine 08/07/2024 3:54 PM EDT CULTURE BLOOD STAT 08/07/2024 11:41 AM EDT CULTURE BLOOD STAT 08/07/2024 11:41 AM EDT HEMOGLOBIN AND HEMATOCRIT Timed 08/07/2024 10:06 AM EDT THYROID STIMULATING HORMONE WITH REFLEX TO FREE T4 AND FREE T3 Add-On 08/07/2024 4:09 AM EDT LACTATE Routine 08/07/2024 4:09 AM EDT PHOSPHORUS Routine 08/07/2024 4:09 AM EDT MAGNESIUM Routine 08/07/2024 4:09 AM EDT COMPLETE BLOOD COUNT Routine 08/07/2024 4:09 AM EDT BASIC METABOLIC PANEL Routine 08/07/2024 4:09 AM EDT OCCULT BLOOD STOOL, GUAIAC Routine 08/07/2024 2:00 AM EDT POCT GLUCOSE BLOOD Routine 08/06/2024 11:56 PM EDT BASIC METABOLIC PANEL STAT 08/06/2024 10:56 PM EDT US RETROPERITONEAL COMPLETE Routine 08/06/2024 6:10 PM EDT LACTATE, WITH REFLEX Timed 08/06/2024 3:03 PM EDT TROPONIN I HIGH SENSITIVITY STAT 08/06/2024 3:00 PM EDT ECG 12-LEAD STAT 08/06/2024 1:08 PM EDT XR CHEST 1 VIEW STAT 08/06/2024 10:53 AM EDT HEPATIC FUNCTION PANEL Add-On 10:47 AM EDT PROCALCITONIN STAT Add-on 08/06/2024 10:47 AM EDT PROTHROMBIN TIME WITH INR STAT 08/06/2024 10:47 AM EDT ACTIVATED PARTIAL THROMBOPLASTIN TIME STAT 08/06/2024 10:47 AM EDT CBC WITH AUTO DIFFERENTIAL STAT 08/06/2024 10:47 AM EDT LACTATE, WITH REFLEX STAT 08/06/2024 10:47 AM EDT TROPONIN I HIGH SENSITIVITY STAT 08/06/2024 10:47 AM EDT B-TYPE NATRIURETIC PEPTIDE STAT 08/06/2024 10:47 AM EDT BASIC METABOLIC PANEL STAT 08/06/2024 10:47 AM EDT CBC AND DIFFERENTIAL STAT 08/06/2024 10:47 AM EDT BLOOD CULTURE PATHOGENS BY PCR Routine 08/06/2024 10:47 AM EDT BLOOD CULTURE PATHOGENS BY PCR Routine 08/06/2024 10:47 AM EDT CULTURE BLOOD STAT 08/06/2024 10:47 AM EDT CULTURE BLOOD STAT 08/06/2024 10:47 AM EDT WI CRITICAL CARE 30-74 MINUTES Routine 08/06/2024 10:16 AM EDT EXTERNAL COLONOSCOPY REPORT Routine 05/03/2024 9:19 AM EDT ALEXI SCREENING DIGITAL Routine 02/10/2022 6:50 PM EST Encounter for screening mammogram for malignant neoplasm of breast from Last 3 Months or Most Recently Relevant to Health Maintenance Results * ECG-Annotated (09/17/2024) us Provider Onbase ECG ORDERABLES Final Result * (ABNORMAL) Creatinine, Serum - Every 7 Days (09/12/2024 6:12 AM EDT) Only the most recent of3 resultswithin the time period is included. Creatinine 3.84(H) 0.50 - 1.10 mg/dL LAB CHEMISTRY METHOD 09/12/2024 7:27 AM EDT [facility] eGFR 13(L) >=60 mL/min/1. 73m2 LAB CHEMISTRY METHOD 09/12/2024 7:27 AM EDT [facility] Comment:Calculation based on the Chronic Kidney Disease Epidemiology Collaboration (CKD-EPI) equation refit without adjustment for race. Blood Venous blood specimen / Unknown Venipuncture / Unknown 09/12/2024 6:12 AM EDT 09/12/2024 6:28 AM EDT us Galilea Newton MD LAB BLOOD ORDERABLES Final Re sult [facility] [address] [place] [address], * (ABNORMAL) CBC - Every 3 Days (09/12/2024 6:12 AM EDT) Only the most recent of9 resultswithin the time period is included. WBC 6.4 4.8 - 10.8 K/mcL LAB HEMETOLOGY METHOD 09/12/2024 6:46 AM [facility] RBC 3.20(L) 3.80 - 4.80 M/mcL LAB HEMETOLOGY METHOD 09/12/2024 6:46 AM [facility] Hemoglobin 8.7(L) 11.5 - 16.0 g/dL LAB HEMETOLOGY METHOD 09/12/2024 6:46 AM [facility] Hematocrit 28.1(L) 35.0 - 47.0 % LAB HEMETOLOGY METHOD 09/12/2024 6:46 AM [facility] MCV 86.7 79.0 - 98.0 FL LAB HEMETOLOGY METHOD 09/12/2024 6:46 AM [facility] MCH 26.9(L) 27.0 - 32.0 pcg LAB HEMETOLOGY METHOD 09/12/2024 6:46 AM [facility] MCHC 31.0(L) 32.0 - 37.0 g/dL LAB HEMETOLOGY METHOD 09/12/2024 6:46 AM [facility] RDW 16.0(H) 11.0 - 15.0 % LAB HEMETOLOGY METHOD 09/12/2024 6:46 AM [facility] Platelets 284 130 - 400 K/mcL LAB HEMETOLOGY METHOD 09/12/2024 6:46 AM [facility] MPV 9.7 7.0 - 11.0 FL LAB HEMETOLOGY METHOD 09/12/2024 6:46 AM [facility] NRBC 0.0 <1.0 % LAB HEMETOLOGY METHOD 09/12/2024 6:46 AM EDT [facility] NRBC Absolute 0.00 <0.10 K/mcL LAB HEMETOLOGY METHOD 09/12/2024 6:46 AM EDT [facility] Blood Venous blood specimen / Unknown Venipuncture / Unknown 09/12/2024 6:12 AM EDT 09/12/2024 6:27 AM EDT us Galilea Newton MD LAB BLOOD ORDERABLES Final Re sult Performing Organization Address City/[facility]/ZIP Co de Phone Number [facility] [address] [place] [address], [place] [phone] * ALT (09/12/2024 6:12 AM EDT) ALT (SGPT) 40 10 - 60 unit/L LAB CHEMISTRY METHOD 09/12/2024 7:27 AM EDT [facility] Blood Venous blood specimen / Unknown Venipuncture / Unknown 09/12/2024 6:12 AM EDT 09/12/2024 6:28 AM EDT us Huyen Burgos NP LAB BLOOD ORDERABLES Final Resul t [facility] [address] [place] [address], [place] [phone] * AST (09/12/2024 6:12 AM EDT) AST (SGOT) 28 10 - 42 unit/L LAB CHEMISTRY METHOD 09/12/2024 7:50 AM EDT [facility] Comment:Results verified by repeat testing Blood Venous blood specimen / Unknown Venipuncture / Unknown 09/12/2024 6:12 AM EDT 09/12/2024 6:28 AM EDT Huyen Burgos NP LAB BLOOD ORDERABLES Final Resul t Performing Organization Address City/[facility]/ZIP Co de Phone Number [facility] [address] [place] [address], [place] [phone] * SST tube (09/09/2024 5:40 AM EDT) Only the most recent of5 resultswithin the time period is included. Extra Tube Hold for add-ons. 09/09/2024 8:01 AM EDT [facility] Comment:Auto resulted. Blood Venous blood specimen / Unknown 09/09/2024 5:40 AM EDT 09/09/2024 6:10 AM EDT Valery Thompson MD LAB BLOOD ORDERABLES Final Resul t Performing Organization Address [facility] Co de Phone Number [facility] [address] [place] [address], [place] [phone] * Lavender tube (09/05/2024 6:08 AM EDT) Extra Tube Hold for add-ons. 09/05/2024 8:01 AM EDT [facility] Comment:Auto resulted. Blood Venous blood specimen / Unknown Venipuncture / Unknown 09/05/2024 6:08 AM EDT 09/05/2024 6:30 AM EDT Charlie Brunson MD LAB BLOOD ORDERABLES Final Re sult Performing Organization Address City/[facility]/ZIP Co de Phone Number [facility] [address] [place] [address], [place] [phone] * Hepatitis B surface antigen with reflex to confirmation (09/03/2024 5:42 AM EDT) Only the most recent of2 resultswithin the time period is included. Hepatitis B Surface Ag Negative Negative LAB CHEMISTRY METHOD 09/04/2024 9:07 PM EDT [facility] Blood Venous blood specimen / Unknown Venipuncture / Unknown 09/03/2024 5:42 AM EDT 09/03/2024 6:24 AM EDT Narrative [facility] - 09/04/2024 9:07 PM EDT Over the counter supplements containing high doses of biotin may interfere with this assay. If interference is suspected, patients shoud be retested after refraining from biotin supplements for 72 hours. us Hugo Fyo MD LAB BLOOD ORDERABLES Final Resu lt [facility] [address] [place] [address], [place] [phone] * (ABNORMAL) CBC auto differential (09/03/2024 5:42 AM EDT) Only the most recent of26 resultswithin the time period is included. WBC 5.9 4.8 - 10.8 K/mcL LAB HEMETOLOGY METHOD 09/03/2024 6:50 AM EDT [facility] RBC 3.30(L) 3.80 - 4.80 M/mcL LAB HEMETOLOGY METHOD 09/03/2024 6:50 AM [facility] Hemoglobin 9.0(L) 11.5 - 16.0 g/dL LAB HEMETOLOGY METHOD 09/03/2024 6:50 AM EDT [facility] Hematocrit 29.2(L) 35.0 - 47.0 % LAB HEMETOLOGY METHOD 09/03/2024 6:50 AM EDT [facility] MCV 87.7 79.0 - 98.0 FL LAB HEMETOLOGY METHOD 09/03/2024 6:50 AM T [facility] MCH 27.0 27.0 - 32.0 pcg LAB HEMETOLOGY METHOD 09/03/2024 6:50 AM EDT [facility] MCHC 30.8(L) 32.0 - 37.0 g/dL LAB HEMETOLOGY METHOD 09/03/2024 6:50 AM EDT [facility] RDW 16.8(H) 11.0 - 15.0 % LAB HEMETOLOGY METHOD 09/03/2024 [facility] Plate[facility] 289 130 - 400 K/mcL LAB HEMETOLOGY METHOD 09/03/2024 6:50 AM EDT [facility] MPV 10.4 7.0 - 11.0 FL LAB HEMETOLOGY METHOD 09/03/2024 6[facility] NRBC 0.0 <1.0 % LAB HEMETOLOGY METHOD 09/03/2024 6:50 AM [facility] NRBC Absolute 0.00 <0.10 K/mcL LAB HEMETOLOGY METHOD 09/03/2024 6:50 AM [facility] Neutrophils Relative 63.3 % LAB HEMETOLOGY METHOD 09/03/2024 6:50 AM [facility] Lymphocytes Relative 23.2 % LAB HEMETOLOGY METHOD 09/03/2024 6:50 AM [facility] Monocytes Relative 8.2 % LAB HEMETOLOGY METHOD 09/03/2024 6:50 AM [facility] Eosinophils Relative 3.6 % LAB HEMETOLOGY METHOD 09/03/2024 6:50 AM [facility] Basophils Relative 1.2 % LAB [facility] Immature Granulocytes Relative 0.5 % LAB HEMETOLOGY METHOD 09/03/2024 6:50 AM [facility] Neutrophils Absolute 3.70 1.50 - 7.00 K/mcL LAB HEMETOLOGY METHOD 09/03/2024 6:50 AM EDT [facility] Lymphocytes Absolute 1.36 1.00 - 5.00 K/[facility] LAB HEMETOLOGY METHOD 09/03/2024 6:50 AM EDT [facility] Monocytes Absolute 0.48 0.20 - 1.00 K/[facility] LAB HEMETOLOGY METHOD 09/03/2024 6:50 AM EDT [facility] Eosinophils Absolute 0.21 0.00 - 0.50 K/[facility] LAB HEMETOLOGY METHOD 09/03/2024 6:50 AM EDT [facility] Basophils Absolute 0.07 0.00 - 0.20 K/[facility] LAB HEMETOLOGY METHOD 09/03/2024 6:50 AM EDT [facility] Immature Granulocytes Absolute 0.03 0.00 - 0.03 K/[facility] LAB HEMETOLOGY METHOD 09/03/2024 6:50 AM EDT [facility] Blood Venous blood specimen / Unknown Venipuncture / Unknown 09/03/2024 5:42 AM EDT 09/03/2024 6:24 AM EDT us Riri Mcallister MD LAB BLOOD ORDERABLES Final Resul t [facility] [address] [place] [address], * Hepatitis B surface antibody (09/03/2024 5:42 AM EDT) Hepatitis B Surface Ab Negative Negative LAB CHEMISTRY METHOD 09/04/2024 8:57 PM EDT [facility] Hepatitis B Surface Ab Quantitative <3.1 mIU/mL LAB CHEMISTRY METHOD 09/04/2024 8:57 PM EDT [facility] Blood Venous blood specimen / Unknown Venipuncture / Unknown 09/03/2024 5:42 AM EDT 09/03/2024 6:24 AM EDT Narrative [facility] - 09/04/2024 8:57 PM EDT >=10 mIU/mL is considered to be consistent with immunity. us Hugo Foy MD LAB BLOOD ORDERABLES Final Resu lt [facility] [address] [place] [address], * (ABNORMAL) Basic metabolic panel (09/03/2024 5:42 AM EDT) Only the most recent of23 resultswithin the time period is included. Sodium 128(L) 133 - 145 mmol/L LAB CHEMISTRY METHOD 09/03/2024 7:11 AM [facility] Potassium 4.0 3.5 - 5.5 mmol/L LAB CHEMISTRY METHOD 09/03/2024 7:11 AM [facility] Chloride 91(L) 96 - 110 mmol/L LAB CHEMISTRY METHOD 09/03/2024 7:11 AM [facility] CO2 29 21 - 32 mmol/L LAB CHEMISTRY METHOD 09/03/2024 7:11 AM [facility] Anion Gap 8 3 - 11 LAB CHEMISTRY METHOD 09/03/2024 7:11 AM [facility] Glucose 101(H) 70 - 100 mg/dL LAB CHEMISTRY METHOD 09/03/2024 7:11 AM [facility] BUN 45(H) 5 - 25 mg/dL LAB CHEMISTRY METHOD 09/03/2024 7:11 AM [facility] Creatinine 4.43(H) 0.50 - 1.10 mg/dL LAB CHEMISTRY METHOD 09/03/2024 7:11 AM [facility] eGFR 11(L) >=60 mL/min/1. 73m2 LAB CHEMISTRY METHOD 09/03/2024 7:11 AM [facility] Comment:Calculation based on the Chronic Kidney Disease Epidemiology Collaboration (CKD-EPI) equation refit without adjustment for race. BUN/Creatinine Ratio 10.2 LAB CHEMISTRY METHOD 09/03/2024 7:11 AM [facility] Calcium 9.4 8.5 - 10.5 mg/dL LAB CHEMISTRY METHOD 09/03/2024 7:11 AM [facility] Blood Venous blood specimen / Unknown Venipuncture / Unknown 09/03/2024 5:42 AM EDT 09/03/2024 6:24 AM EDT us Riri Mcallister MD LAB BLOOD ORDERABLES Final Resul t [facility] [address] [place] [address], [place] [phone] * (ABNORMAL) Renal function panel (09/03/2024 12:24 AM EDT) Sodium 128(L) 133 - 145 mmol/L LAB CHEMISTRY METHOD 09/03/2024 1:15 AM [facility] Potassium 4.0 3.5 - 5.5 mmol/L LAB CHEMISTRY METHOD 09/03/2024 1:15 AM [facility] Chloride 92(L) 96 - 110 mmol/L LAB CHEMISTRY METHOD 09/03/2024 1:15 AM [facility] CO2 28 21 - 32 mmol/L LAB CHEMISTRY METHOD 09/03/2024 1:15 AM [facility] Anion Gap 8 3 - 11 LAB CHEMISTRY METHOD 09/03/2024 1:15 AM [facility] Glucose 92 70 - 100 mg/dL LAB CHEMISTRY METHOD 09/03/2024 1:15 AM [facility] BUN 46(H) 5 - 25 mg/dL LAB CHEMISTRY METHOD 09/03/2024 1:15 AM [facility] Creatinine 4.47(H) 0.50 - 1.10 mg/dL LAB CHEMISTRY METHOD 09/03/2024 1:15 AM EDT [facility] eGFR 10(L) >=60 mL/min/1. 73m2 LAB CHEMISTRY METHOD 09/03/2024 1:15 AM EDT [facility] Comment:Calculation based on the Chronic Kidney Disease Epidemiology Collaboration (CKD-EPI) equation refit without adjustment for race. BUN/Creatinine Ratio 10.3 LAB CHEMISTRY METHOD 09/03/2024 1:15 AM EDT [facility] Albumin 3.6 3.2 - 5.0 g/dL LAB CHEMISTRY METHOD 09/03/2024 1:15 AM EDT [facility] Calcium 9.4 8.5 - 10.5 mg/dL LAB CHEMISTRY METHOD 09/03/2024 1:15 AM EDT [facility] Phosphorus 5.7(H) 2.5 - 4.5 mg/dL LAB CHEMISTRY METHOD 09/03/2024 1:15 AM EDT [facility] Blood Venous blood specimen / Unknown Venipuncture / Unknown 09/03/2024 12:24 AM EDT 09/03/2024 12:52 AM EDT us Hugo Foy MD LAB BLOOD ORDERABLES Final Resu lt [facility] [address] [place] [address], * Magnesium (08/28/2024 7:30 AM EDT) Only the most recent of25 resultswithin the time period is included. Magnesium 1.9 1.9 - 2.6 mg/dL LAB CHEMISTRY METHOD 08/28/2024 8:27 AM EDT [facility] Blood Venous blood specimen / Unknown Venipuncture / Unknown 08/28/2024 7:30 AM EDT 08/28/2024 7:37 AM EDT us Riri Mcallister MD LAB BLOOD ORDERABLES Final Resul t Performing Organization Address [facility]/ZIP Co de Phone Number [facility] [address] [place] [address], [place] [phone] * Phosphorus (08/26/2024 6:27 AM EDT) Only the most recent of20 resultswithin the time period is included. Phosphorus 4.0 2.5 - 4.5 mg/dL LAB CHEMISTRY METHOD 08/26/2024 8:08 PM EDT [facility] Blood Venous blood specimen / Unknown Venipuncture / Unknown 08/26/2024 6:27 AM EDT 08/26/2024 6:50 AM EDT Maria Fernanda Buck NP LAB BLOOD ORDERABLES Fin al Result Performing Organization Address [facility] Co de Phone Number [facility] [address] [place] [address], [place] [phone] * Activated Partial Thromboplastin Time - STAT (08/24/2024 3:32 PM EDT) Only the most recent of2 resultswithin the time period is included. aPTT 30.3 24.1 - 39.3 sec LAB COAGULATION METHOD 08/24/2024 4:23 PM EDT [facility] Blood Venous blood specimen / Unknown Venipuncture / Unknown 08/24/2024 3:32 PM EDT 08/24/2024 4:09 PM EDT us Galilea Newton MD LAB BLOOD ORDERABLES Final Re sult Performing Organization Address City/[facility]/ZIP Co de Phone Number [facility] [address] [place] [address], [place] [phone] * Prothrombin Time with INR - STAT (08/24/2024 3:32 PM EDT) Only the most recent of4 resultswithin the time period is included. Protime 12.4 10.6 - 13.9 sec LAB COAGULATION METHOD 08/24/2024 4:23 PM EDT [facility] INR 1.0 LAB COAGULATION METHOD 08/24/2024 4:23 PM EDT [facility] Blood Venous blood specimen / Unknown Venipuncture / Unknown 08/24/2024 3:32 PM EDT 08/24/2024 4:09 PM EDT Galilea Newton MD LAB BLOOD ORDERABLES Final Re sult Performing Organization Address [facility]/ZIP Co de Phone Number [facility] [address] [place] [address], [place] [phone] * (ABNORMAL) Calcium, ionized (08/24/2024 5:36 AM EDT) Only the most recent of21 resultswithin the time period is included. [facility] Calcium Ionized 4.48(L) 4.50 - 5.30 mg/dL 08/24/2024 5:48 AM EDT [facility] Blood Venous blood specimen / Unknown Venipuncture / Unknown 08/24/2024 5:36 AM EDT 08/24/2024 5:44 AM EDT Galilea Newton MD LAB BLOOD ORDERABLES Final Re sult Performing Organization Address City/[facility]/ZIP Co de Phone Number [facility] [address] [place] [address], [place] [phone] * Light blue tube (08/24/2024 5:31 AM EDT) [facility] Extra Tube Hold for add-ons. 08/24/2024 7:01 AM EDT [facility] Comment:Auto resulted. Blood Venous blood specimen / Unknown Venipuncture / Unknown 08/24/2024 5:31 AM EDT 08/24/2024 5:45 AM EDT us Eda Kerns MD LAB BLOOD ORDERABLES Final Re sult [facility] [address] [place] [address], [place] [phone] * XR Chest 1 View (08/24/2024 5:30 AM EDT) Only the most recent of14 resultswithin the time period is included. Anatomical Region Laterality Modality Body Radiographic Sirisha ging 08/24/2024 8:02 AM EDT Impressions 08/24/2024 8:04 AM EDT FINDINGS/IMPRESSION: Interval placement of a tunneled right IJ central venous dialysis catheter. No pneumothorax. Hypoventilatory examination with bronchovascular crowding and suggestion of mild overload. Stable cardiomegaly. No significant pleural effusion. -------- FINAL REPORT -------- Dictated By: Levi Arzate Dictated Date: 08/24/2024 08:02 ET Assigned Physician: Levi Arzate Reviewed and Electronically Signed By: Levi Arzate Signed Date: 08/24/2024 08:04 ET Workstation ID: [id number] Transcribed By: Self Edit Transcribed Date: 08/24/2024 08:02 ET Narrative 08/24/2024 8:04 AM EDT XR CHEST 1 VIEW INDICATION: new permcath TECHNIQUE: XR CHEST 1 VIEW COMPARISON: No priors available. Procedure Note Levi Arzate MD - 08/24/2024 XR CHEST 1 VIEW INDICATION: new permcath TECHNIQUE: XR CHEST 1 VIEW COMPARISON: No priors available. IMPRESSION: FINDINGS/IMPRESSION: Interval placement of a tunneled right IJ centralvenous dialysis catheter. No pneumothorax. Hypoventilatory examinationwith bronchovascular crowding and suggestion of mild overload. Stablecardiomegaly. No significant pleural effusion. -------- FINAL REPORT -------- Dictated By: Levi Arzate Dictated Date: 08/24/2024 08:02 ET Assigned Physician: Levi Arzate Reviewed and Electronically Signed By: Levi Arzate Signed Date: 08/24/2024 08:04 ET Workstation ID: [id number] Transcribed By: Self Edit Transcribed Date: 08/24/2024 08:02 ET us Galilea Newton MD IMG XR PROCEDURES Final Resul t * IR Insert Tunneled CVC wo Port or Pump More 5yrs Right (08/23/2024 2:33 PM EDT) Anatomical Region Laterality Modality Right Interventional R adiology 08/23/2024 4:36 PM EDT Impressions 08/23/2024 4:39 PM EDT Successful placement of a 14 Cuban 23 cm dual-lumen cuffed tunneled dialysis catheter with the tip in the proximal right atrium. This line may be used immediately. -------- FINAL REPORT -------- Dictated By: Bambi Pollock Dictated Date: 08/23/2024 16:36 ET Assigned Physician: Bambi Pollock Reviewed and Electronically Signed By: Bambi Pollock Signed Date: 08/23/2024 16:39 ET Workstation ID: [id number] Transcribed By: Self Edit Transcribed Date: 08/23/2024 16:36 ET Narrative 08/23/2024 4:39 PM EDT HISTORY: Renal failure TECHNIQUE:Informed consent was obtained after the risks, benefits and alternatives particularly to procedure were discussed in detail. Any questions were answered in detail. Informed consent was signed by the patient/patient's proxy and provider. Indwelling right-sided nontunneled catheter placed on August 08, 2024. Site of catheter was clean and dry however was noted superior and medial to the usual insertion site of a tunnel catheter therefore decision made to remove this catheter and access the vein more inferolaterally. Stitches were removed followed by the catheter. Hemostasis was achieved with digital compression. The patient was placed supine on the angiographic table and the right lower neck and upper chest were draped and prepped using maximum sterile barrier. Timeout was performed as per hospital protocol acknowledged by the staff present. 2% buffered lidocaine was used as local anesthetic. Moderate intravenous sedation was initiated and maintained for 30 minutes while the patient was independently monitored by the radiology nurse under the supervision of the interventional radiologist. A total of 2 mg of Versed and 75 mcg of fentanyl administered during the procedure. Under real-time ultrasound guidance access was obtained into the internal jugular vein using a micropuncture needle. The microwire was advanced through the needle and fluoroscopically guided into the superior vena cava. The needle was exchanged for the 4 Cuban transition sheath. A 0.035 wire was then advanced through the sheath and into the inferior vena cava under fluoroscopy. The sheath was then exchanged for a 7 Cuban vascular dilator. Attention was then turned to the right upper chest and the appropriate area was anesthetized with 2% lidocaine. A small dermatotomy was performed and then a tunnel was created from the dermatotomy to the initial venous access site. The catheter was advanced through the tunnel. The initial venous access site was then serially dilated up to a 15 Cuban peel- away sheath. The catheter was then advanced through the valve peel-away sheath which was subsequently removed. The position of the catheter was checked under fluoroscopy. The catheter was flushed and heparinized as per protocol. The initial venous access site was approximated with a single vertical mattress suture. The catheter was sutured to the skin with a suture around the exit site. These sutures should be removed in approximately 10 days. A sterile dressing was applied. The patient tolerated the procedure well and left the department in stable condition without any immediate complications. FINDINGS: Initial ultrasound image demonstrates patent internal jugular vein. Final spot radiograph demonstrates newly placed tunneled dialysis catheter with the tip in the proximal right atrium. Total patient dose (air kerma): 23 mGy Procedure Note Bambi Pollock MD - 08/23/2024 HISTORY: Renal failure TECHNIQUE:Informed consent was obtained after the risks, benefits andalternatives particularly to procedure were discussed in detail. Anyquestions were answered in detail. Informed consent was signed by thepatient/patient's proxy and provider. Indwelling right-sided nontunneled catheter placed on August 08, 2024. Siteof catheter was clean and dry however was noted superior and medial to theusual insertion site of a tunnel catheter therefore decision made toremove this catheter and access the vein more inferolaterally. Stitcheswere removed followed by the catheter. Hemostasis was achieved withdigital compression. The patient was placed supine on the angiographic table and the rightlower neck and upper chest were draped and prepped using maximum sterilebarrier. Timeout was performed as per hospital protocol acknowledged by the staffpresent. 2% buffered lidocaine was used as local anesthetic. Moderate intravenous sedation was initiated and maintained for 30 minuteswhile the patient was independently monitored by the radiology nurse underthe supervision of the interventional radiologist. A total of 2 mg ofVersed and 75 mcg of fentanyl administered during the procedure. Underreal-time ultrasound guidance access was obtained into the internaljugular vein using a micropuncture needle. The microwire was advancedthrough the needle and fluoroscopically guided into the superior venacava. The needle was exchanged for the 4 Cuban transition sheath. A 0.035wire was then advanced through the sheath and into the inferior vena cavaunder fluoroscopy. The sheath was then exchanged for a 7 Cuban vasculardilator. Attention was then turned to the right upper chest and the appropriatearea was anesthetized with 2% lidocaine. A small dermatotomy was performedand then a tunnel was created from the dermatotomy to the initial venousaccess site. The catheter was advanced through the tunnel. The initialvenous access site was then serially dilated up to a 15 Cuban peel-awaysheath. The catheter was then advanced through the valve peel-away sheathwhich was subsequently removed. The position of the catheter was checkedunder fluoroscopy. The catheter was flushed and heparinized as perprotocol. The initial venous access site was approximated with a singlevertical mattress suture. The catheter was sutured to the skin with asuture around the exit site. These sutures should be removed inapproximately 10 days. A sterile dressing was applied. The patient tolerated the procedure well and left the department in stablecondition without any immediate complications. FINDINGS: Initial ultrasound image demonstrates patent internal jugular vein. Final spot radiograph demonstrates newly placed tunneled dialysis catheterwith the tip in the proximal right atrium. Total patient dose (air kerma): 23 mGy IMPRESSION: Successful placement of a 14 Cuban 23 cm dual-lumen cuffed tunneleddialysis catheter with the tip in the proximal right atrium. This line maybe used immediately. -------- FINAL REPORT -------- Dictated By: Bambi Pollock Dictated Date: 08/23/2024 16:36 ET Assigned Physician: Bambi Pollock Reviewed and Electronically Signed By: Bambi Pollock Signed Date: 08/23/2024 16:39 ET Workstation ID: [id number] Transcribed By: Self Edit Transcribed Date: 08/23/2024 16:36 ET Bambi Pollock MD IMG IR PROCEDURES Final Result * (ABNORMAL) Venous blood gas (08/23/2024 6:24 AM EDT) pH, Vince 7.40 7.32 - 7.42 pH 08/23/2024 6:31 AM EDT [facility] pCO2, Vince 48 41 - 51 mmHg 08/23/2024 6:31 AM EDT [facility] pO2, Vince 35 25 - 40 mmHg 08/23/2024 6:31 AM EDT [facility] HCO3, Venous 27.7(H) 22.0 - 26.0 mmol/L 08/23/2024 6:31 AM EDT [facility] O2 Sat, Vicne 67.8 % 08/23/2024 6:31 AM EDT [facility] Base Excess, Vince 4.3(H) -2.0 - 2.0 mmol/L 08/23/2024 6:31 AM EDT [facility] Blood Venous blood specimen / Unknown Venipuncture / Unknown 08/23/2024 6:24 AM EDT 08/23/2024 6:29 AM EDT us Eda Kerns MD LAB BLOOD ORDERABLES Final Re sult [facility] [address] [place] [address], * Lactate (08/23/2024 6:23 AM EDT) Only the most recent of6 resultswithin the time period is included. Lactate 1.2 0.4 - 2.0 mmol/L LAB CHEMISTRY METHOD 08/23/2024 7:03 AM [facility] Blood Venous blood specimen / Unknown Venipuncture / Unknown 08/23/2024 6:23 AM EDT 08/23/2024 6:29 AM EDT us Eda Kerns MD LAB BLOOD ORDERABLES Final Re sult [facility] [address] [place] [address], [place] [phone] * (ABNORMAL) Comprehensive metabolic panel (08/23/2024 6:23 AM EDT) Only the most recent of6 resultswithin the time period is included. Sodium 137 133 - 145 mmol/L LAB CHEMISTRY METHOD 08/23/2024 8:52 AM [facility] Potassium 3.7 3.5 - 5.5 mmol/L LAB CHEMISTRY METHOD 08/23/2024 8:52 AM [facility] Chloride 100 96 - 110 mmol/L LAB CHEMISTRY METHOD 08/23/2024 8:52 AM [facility] CO2 29 21 - 32 mmol/L LAB CHEMISTRY METHOD 08/23/2024 8:52 AM [facility] Anion Gap 8 3 - 11 LAB CHEMISTRY METHOD 08/23/2024 8:52 AM [facility] Glucose 99 70 - 100 mg/dL LAB CHEMISTRY METHOD 08/23/2024 8:52 AM [facility] BUN 23 5 - 25 mg/dL LAB CHEMISTRY METHOD 08/23/2024 8:52 AM [facility] Creatinine 3.36(H) 0.50 - 1.10 mg/dL LAB CHEMISTRY METHOD 08/23/2024 8:52 AM [facility] eGFR 15(L) >=60 mL/min/1. 73m2 LAB CHEMISTRY METHOD 08/23/2024 8:52 AM [facility] Comment:Calculation based on the Chronic Kidney Disease Epidemiology Collaboration (CKD-EPI) equation refit without adjustment for race. BUN/Creatinine Ratio 6.8 LAB CHEMISTRY METHOD 08/23/2024 8:52 AM [facility] Calcium 8.8 8.5 - 10.5 mg/dL LAB CHEMISTRY METHOD 08/23/2024 8:52 AM [facility] AST (SGOT) 193(H) 10 - 42 unit/L LAB CHEMISTRY METHOD 08/23/2024 8:52 AM [facility] ALT (SGPT) 161(H) 10 - 60 unit/L LAB CHEMISTRY METHOD 08/23/2024 8:52 AM [facility] Alkaline Phosphatase 109 42 - 121 unit/L LAB CHEMISTRY METHOD 08/23/2024 8:52 AM [facility] Total Protein 7.1 6.0 - 8.0 g/dL LAB CHEMISTRY METHOD 08/23/2024 8:52 AM [facility] Albumin 3.0(L) 3.2 - 5.0 g/dL LAB CHEMISTRY METHOD 08/23/2024 8:52 AM [facility] Total Bilirubin 0.9 0.0 - 1.4 mg/dL LAB CHEMISTRY METHOD 08/23/2024 8:52 AM [facility] Blood Venous blood specimen / Unknown Venipuncture / Unknown 08/23/2024 6:23 AM EDT 08/23/2024 6:30 AM EDT us Eda Kerns MD LAB BLOOD ORDERABLES Final Re sult [facility] [address] [place] [address], * (ABNORMAL) Procalcitonin (08/22/2024 4:46 AM EDT) Only the most recent of9 resultswithin the time period is included. Procalcitonin 1.55(H) <=0.16 ng/mL LAB CHEMISTRY METHOD 08/22/2024 7:44 AM EDT [facility] Blood Venous blood specimen / Unknown Venipuncture / Unknown 08/22/2024 4:46 AM EDT 08/22/2024 4:51 AM EDT Narrative [facility] - 08/22/2024 7:44 AM EDT Procalcitonin > 2.00 ng/ml: Procalcitonin Levels above 2.00 ng/ml, on the first day of ICU admission represent a high risk for progression to severe sepsis and/or septic shock. Procalcitonin < 0.50 ng/ml: Procalcitonin levels below 0.50 ng/ml on the first day of ICU admission represent a low risk for progression to severe sepsis and/or septic shock. Concentrations <0.5 ng/mL do not exclude an infection, on account of local ized infections (without systemic signs) which can be associated with such low concentrations, or a systemic infection in its initial stages (<6 hours). Furthermore, increased procalcitonin can occur without infection. PCT concentrations between 0.5 and 2.0 ng/mL should be interpreted taking into account the patient's history. It is recommended to retest PCT within 6-24 hours if any concentrations <2.0 ng/mL are obtained. Jeremi GALAVIZ LAB BLOOD ORDERABLES Final Resul t [facility] [address] [place] [address], * INSERT / REPLACE LEADLESS PPM, AV NODE ABLATION (08/21/2024 1:47 PM EDT) Anatomical Region Laterality Modality X-Ray Angiograph y Narrative 08/22/2024 7:50 AM EDT Insertion of a Micra leadless pacemaker AV node ablation Moderate sedation Study Details 63 y.o. female past medical history significant for A fib s/p pulmonary vein isolation in 2020 on Xarelto also, hypertension, pulmonary hypertension, restrictive lung disease LEXIE, morbid obesity and further history below presents with evaluation of shortness of breath and wound on her both legs, with prolonged hospitalization with poorly controlled heart rates with afib/flutter with rapid ventricular rates. Plan for leadless pacemaker insertion followed by AV node ablation Procedure Details Patient brought patient was brought to the EP lab in the fasting state. She was consented prior to the procedure. She was prepped and draped in usual fashion. I used ultrasound-guided technique and placed a 8 Cuban sheath right femoral vein. I used series of dilators and eventually placed a Epi[employer]xtronic delivery sheath to the radial chamber. I prepped the Micra catheter for delivery of the leadless pacemaker. I placed it in the sheath and I was able to place it in the septal region. I confirmed good position with intravenous contrast and also with GREEK CANALES view. I deployed the device and had good sensing thresholds impedances. I did do a pull string test and noted tines being bent. I then cut the string of attached device from the catheter. I again confirmed good sensing, thresholds, impedances. I then removed the catheter and placed a 12 Cuban sheath within the sheath. I then prepped the thermal ablating catheter and used settings of 80 W, 60 degrees for 1 minute and to get heart block. After period of waiting, patient remained in heart block. I then reset her pacemaker to pace at VVIR at heart rate of 80. Device is a Micra VR 2 model number [id number] serial number [id number]. Moderate sedation was used in the procedure. Please see this report for all details of the start and intended procedure. Please see the report for full details of the doses given for the moderate sedation. us Gris Ventura MD CV ELECTROPHYSIOLOGY PROCEDURE S Final Result * Vascular US duplex lower extremity venous right (08/20/2024 6:57 AM EDT) Anatomical Region Laterality Modality Vascular, Abdomen Ultrasound 08/20/2024 8:07 AM EDT Impressions 08/20/2024 8:07 AM EDT No evidence of a right lower extremity deep venous thrombosis. -------- FINAL REPORT -------- Dictated By: Wilberto Ballesteros Dictated Date: 08/20/2024 08:07 ET Assigned Physician: Wilberto Ballesteros Reviewed and Electronically Signed By: Wilberto Ballesteros Signed Date: 08/20/2024 08:07 ET Workstation ID: [id number] Transcribed By: Self Edit Transcribed Date: 08/20/2024 08:07 ET Narrative 08/20/2024 8:07 AM EDT PROCEDURE: Right lower extremity deep vein thrombosis study. HISTORY: edema pain in extremities sudden edema and pain in right lower extremity. COMPARISON: None. TECHNIQUE: Grayscale, color Doppler, and spectral Doppler ultrasound evaluation of the deep venous structures of the right lower extremity. FINDINGS: The deep venous structures of the right lower extremity demonstrate normal compressibility with normal color and spectral Doppler flow and a normal response to augmentation maneuvers. Procedure Note Wilberto Ballesteros MD - 08/20/2024 PROCEDURE: Right lower extremity deep vein thrombosis study. HISTORY: edema pain in extremities sudden edema and pain in right lower extremity. COMPARISON: None. TECHNIQUE: Grayscale, color Doppler, and spectral Doppler ultrasoundevaluation of the deep venous structures of the right lower extremity. FINDINGS: The deep venous structures of the right lower extremity demonstrate normalcompressibility with normal color and spectral Doppler flow and a normalresponse to augmentation maneuvers. IMPRESSION: No evidence of a right lower extremity deep venous thrombosis. -------- FINAL REPORT -------- Dictated By: Wilberto Ballesteros Dictated Date: 08/20/2024 08:07 ET Assigned Physician: Wilberto Ballesteros Reviewed and Electronically Signed By: Wilberto Ballesteros Signed Date: 08/20/2024 08:07 ET Workstation ID: [id number] Transcribed By: Self Edit Transcribed Date: 08/20/2024 08:07 ET Destin Stiles DO CV VASCULAR PROCEDURES Final Result * Vancomycin random (08/20/2024 4:03 AM EDT) Only the most recent of7 resultswithin the time period is included. Vancomycin Rm 19.2 mcg/mL LAB CHEMISTRY METHOD 08/20/2024 5:01 AM EDT [facility] Blood Blood sample taken from central line / Unknown Existing Catheter / Unknown 08/20/2024 4:03 AM EDT 08/20/2024 4:36 AM EDT us Opal Max MD LAB BLOOD ORDERABLES Final Resul t Performing Organization Address [facility]/ZIP Co de Phone Number [facility] [address] [place] [address], [place] [phone] * (ABNORMAL) Central line blood gas (08/18/2024 4:44 AM EDT) Only the most recent of5 resultswithin the time period is included. pH Central Line 7.47(H) 7.32 - 7.43 08/18/2024 5:00 AM EDT [facility] pCO2 Central Line 38(L) 40 - 60 mmHg 08/18/2024 5:00 AM EDT [facility] pO2 Central Line 40 30 - 55 mmHg 08/18/2024 5:00 AM EDT [facility] HCO3 Central Line 27(H) 22 - 26 mmol/L 08/18/2024 5:00 AM EDT [facility] O2 Saturation, Central Line 69 % 08/18/2024 5:00 AM EDT [facility] Base Excess, Central Line 4(H) -2 - 2 mmol/L 08/18/2024 5:00 AM EDT [facility] Blood Blood sample taken from central line / Unknown Existing Catheter / Unknown 08/18/2024 4:44 AM EDT 08/18/2024 4:55 AM EDT us Galilea Newton MD LAB BLOOD ORDERABLES Final Re sult [facility] [address] [place] [address], [place] [phone] * (ABNORMAL) Hepatic function panel (08/18/2024 4:44 AM EDT) Only the most recent of4 resultswithin the time period is included. Total Protein 7.3 6.0 - 8.0 g/dL LAB CHEMISTRY METHOD 08/18/2024 5:24 AM EDT [facility] Albumin 2.6(L) 3.2 - 5.0 g/dL LAB CHEMISTRY METHOD 08/18/2024 5:24 AM EDT [facility] Total Bilirubin 1.3 0.0 - 1.4 mg/dL LAB CHEMISTRY METHOD 08/18/2024 5:24 AM [facility] Bilirubin, Direct 0.9(H) 0.0 - 0.3 mg/dL LAB CHEMISTRY METHOD 08/18/2024 5:24 AM EDT [facility] Bilirubin, Indirect 0.4 0.0 - 1.1 mg/dL LAB CHEMISTRY METHOD 08/18/2024 5:24 AM T [facility] ALT (SGPT) 48 10 - 60 unit/L LAB CHEMISTRY METHOD 08/18/2024 5:24 AM [facility] AST (SGOT) 70(H) 10 - 42 unit/L LAB CHEMISTRY METHOD 08/18/2024 5:24 AM EDT [facility] Alkaline Phosphatase 161(H) 42 - 121 unit/L LAB CHEMISTRY METHOD 08/18/2024 5:24 AM T [facility] Blood Venous blood specimen / Unknown Venipuncture / Unknown 08/18/2024 4:44 AM EDT 08/18/2024 4:56 AM EDT us Galilea Newton MD LAB BLOOD ORDERABLES Final Re sult [facility] [address] [place] [address], [place] [phone] * [place] Extremity Nonvascular Limited Right (08/16/2024 4:25 PM EDT) Anatomical Region Laterality Modality Extremity Right Ultrasound Impressions 08/16/2024 4:49 PM EDT No sonographic evidence of a soft tissue abscess. -------- FINAL REPORT -------- Dictated By: Wilberto Ballesteros Dictated Date: 08/16/2024 16:49 ET Assigned Physician: Wilberto Ballesteros Reviewed and Electronically Signed By: Wilberto Ballesteros Signed Date: 08/16/2024 16:49 ET Workstation ID: [id number] Transcribed By: Self Edit Transcribed Date: 08/16/2024 16:49 ET Narrative 08/16/2024 4:49 PM EDT PROCEDURE: Focused soft tissue ultrasound. HISTORY: inc wbc, bilat cellulitis, evaluate for fluid collection/abscess. COMPARISON: None. TECHNIQUE: Grayscale and color Doppler ultrasound evaluation of the soft tissues of the right leg. FINDINGS: Ultrasound evaluation of the left leg demonstrates no mass or fluid collection. us Destin Stiles DO IMG US PROCEDURES Edited Res ult - Final * US Extremity Nonvascular Limited Left (08/16/2024 4:24 PM EDT) Anatomical Region Laterality Modality Extremity Left Ultrasound Impressions 08/16/2024 4:49 PM EDT No sonographic evidence of a soft tissue abscess. -------- FINAL REPORT -------- Dictated By: Wilberto Ballesteros Dictated Date: 08/16/2024 16:48 ET Assigned Physician: Wilberto Ballesteros Reviewed and Electronically Signed By: Wilberto Ballesteros Signed Date: 08/16/2024 16:49 ET Workstation ID: [id number] Transcribed By: Self Edit Transcribed Date: 08/16/2024 16:48 ET Narrative 08/16/2024 4:49 PM EDT PROCEDURE: Focused soft tissue ultrasound. HISTORY: inc wbc, bilat cellulitis, evaluate for fluid collection/abscess. COMPARISON: None. TECHNIQUE: Grayscale and color Doppler ultrasound evaluation of the soft tissues of the left leg. FINDINGS: Ultrasound evaluation of the left leg demonstrates no mass or fluid collection. us Destin Stiles DO IM US PROCEDURES Edited Res ult - Final * (ABNORMAL) Manual differential (08/16/2024 4:00 AM EDT) Only the most recent of13 resultswithin the time period is included. Neutrophils % 88.0 % LAB HEMETOLOGY METHOD 08/16/2024 5:24 AM [facility] Lymphocytes % 4.0 % LAB HEMETOLOGY METHOD 08/16/2024 5:24 AM [facility] Monocytes % 4.0 % LAB HEMETOLOGY METHOD 08/16/2024 5:24 AM [facility] Eosinophils % 4.0 % LAB HEMETOLOGY METHOD 08/16/2024 5:24 AM [facility] Basophils % 0.0 % LAB HEMETOLOGY METHOD 08/16/2024 5:24 AM [facility] Neutrophils Absolute Manual 22.62(H) 1.50 - 7.00 K/mcL LAB HEMETOLOGY METHOD 08/16/2024 5:24 AM [facility] Lymphocytes Absolute 1.03 1.00 - 5.00 K/mcL LAB HEMETOLOGY METHOD 08/16/2024 5:24 AM [facility] Monocytes Absolute Manual 1.03(H) 0.20 - 1.00 K/mcL LAB HEMETOLOGY METHOD 08/16/2024 5:24 AM [facility] Eosinophils Absolute Manual 1.03(H) 0.00 - 0.50 K/mcL LAB HEMETOLOGY METHOD 08/16/2024 5:24 AM [facility] Basophils Absolute Manual 0.00 0.00 - 0.20 K/mcL LAB HEMETOLOGY METHOD 08/16/2024 5:24 AM EDT [facility] Rbc Morphology Consistent with indices Consistent with indices, Normal for [place] Cbc Base LAB HEMETOLOGY METHOD 08/16/2024 5:24 AM EDT [facility] Platelet Morphology - WAM Normal Normal LAB HEMETOLOGY METHOD 08/16/2024 5:24 AM EDT [facility] Blood Venous blood specimen / Unknown Venipuncture / Unknown 08/16/2024 4:00 AM EDT 08/16/2024 4:19 AM EDT us Destin Stiles DO LAB BLOOD ORDERABLES Final R esult [facility] [address] [place] [address], [place] [phone] * (ABNORMAL) Arterial blood gas (08/15/2024 4:30 PM EDT) Only the most recent of5 resultswithin the time period is included. pH, Arterial 7.43 7.35 - 7.45 pH 08/15/2024 5:11 PM EDT [facility] pCO2, Arterial 39 35 - 45 mmHg 08/15/2024 5:11 PM T [facility] pO2, Arterial 75(L) 80 - 100 mmHg 08/15/2024 5:11 PM EDT [facility] HCO3, Arterial 26.1(H) 22.0 - 26.0 mmol/L 08/15/2024 5:11 PM T [facility] O2 Sat, Arterial 97.8 95.0 - 98.0 % 08/15/2024 5:11 PM EDT [facility] Base Excess, Arterial 1.5 -2.0 - 2.0 mmol/L 08/15/2024 5:11 PM [facility] Rivera Test Pass Pass, Unresponsi ve, Line 08/15/2024 5:11 PM EDT [facility] FIO2 35.00 08/15/2024 5:11 PM EDT [facility] Comment:3 LPM nasal cannula Blood Arterial blood specimen / Unknown Arterial Puncture / Unknown 08/15/2024 4:30 PM EDT 08/15/2024 4:36 PM EDT Destin Stiles DO LAB BLOOD ORDERABLES Final R esult [facility] [address] [place] [address], [place] [phone] * Transfuse RBC (08/14/2024 1:08 PM EDT) Only the most recent of5 resultswithin the time period is included. Destin Stiles DO BLOOD TRANSFUSION ORDERABLES Final Result * Tissue exam (08/14/2024 11:43 AM EDT) Addendum Part B: Immunohistochemistry: Helicobacter pylori: negative. 7:50 AM EDT [facility] Addendum electronically signed by Kassy Gillespie MD on 08/16/2024 at 7:49 AM Final Diagnosis A. Small Intestine, Duodenum, biopsy: - Duodenal mucosa with preserved villi and moderately increased lamina propria eosinophils. - Negative for increased intraepithelial lymphocytes. Note: Increase in duodenal eosinophils is non-specific and may be associated with certain food and drug allergies. B. Stomach, gastric biopsy: - Gastric antral mucosa with patchy, mild acute inflammation and reactive changes. Note: Immunostain for Helicobacter pylori will be performed to rule out Helicobacter pylori infection in the setting of acute gastritis as Helicobacter pylori organisms are not morphologically apparent on H&E stained slide. 7:50 AM EDT [facility] Gross Description A. Small Intestine, Duodenum, biopsy: Labeled duodenum biopsy . Received in formalin, is an approximately 0.55 cm in greatest diameter soft to rubbery, pickard-pink to red, velvety tissue fragment, admixed with minimal clotted blood, which is wrapped in paper and submitted in toto in one cassette, one piece, multiple levels. B. Stomach, gastric biopsy: Labeled gastric b stomach . Received in formalin, are three irregular soft to rubbery, [id number] tissue fragments, approximately ranging from 0.3 cm to 0.7 cm in greatest diameters, which are wrapped in paper and submitted in toto in one cassette, three pieces, multiple levels. hs/DG 7:50 AM EDT [facility] Disclaimer NOTE: The immunohistochemical tests and in situ hybridization tests were developed and their performance characteristics were determined by [facility]. They have not been cleared or approved by the U.S. Food and Drug Administration. The FDA has determined that such clearance or approval is not necessary. These tests are used for clinical purposes. They should not be regarded as investigational or for research. This laboratory is certified under the Clinical Laboratory Improvement Amendments of 1988 (CLIA) as qualified to perform high complexity clinical laboratory testing. (controls appropriate) Unless otherwise specified, all tissue is 10% NB formalin fixed and paraffin embedded. 7:50 AM EDT [facility] Tissue Duodenal structure / Unknown 08/14/2024 11:43 AM EDT 08/14/2024 1:05 PM EDT Tissue specimen (specimen) Stomach structure / Unknown 08/14/2024 11:52 AM EDT 08/14/2024 1:05 PM EDT Zonia Whitfield MD LAB PATHOLOGY ORDERABLES Ed ited Result - Final [facility] [address] [place] [address], * [place] [facility] [place] [facility] ENDOSCOPY (08/14/2024 11:14 AM EDT) Only the most recent of3 resultswithin the time period is included. Anatomical Region Laterality Modality Endoscopy 08/14/2024 11:1 4 AM EDT Impressions 08/14/2024 1:16 PM EDT - Mucosal changes in the duodenum. Biopsied. hemostatic spray applied. - Gastritis. Biopsied. - Normal esophagus. Recommendation: - Use Protonix (pantoprazole) 40 mg IV BID. - Clear liquid diet. Narrative 08/14/2024 1:16 PM EDT [facility] Patient Name: Celestina Johnson Procedure Date: 08/14/2024 11:14 AM Date of : 1960 Age: 63 Gender: Female Note Status: Finalized Attending MD: Zonia Whitfield MD, Procedure Date No Time: 08/14/2024 Procedure: Upper GI endoscopy Indications: Recent gastrointestinal bleeding, Suspected upper gastrointestinal bleeding Providers: Zonia Whitfield MD Referring MD: Zonia Whitfield MD Medicines: Monitored Anesthesia Care Complications: No immediate complications. Estimated blood loss: Minimal. Estimated Blood Loss: Estimated blood loss was minimal. Procedure: Pre-Anesthesia Assessment: - Prior to the procedure, a History and Physical was performed, and patient medications and allergies were reviewed. The patient is unable to give consent secondary to the patient's altered mental status. The risks and benefits of the procedure and the sedation options and risks were discussed with the patient's son. All questions were answered and informed consent was obtained. Patient identification and proposed procedure were verified by the physician, the nurse and the waste handling technician in the procedure room. Mental Status Examination: sedated. Airway Examination: orotracheal intubation. Respiratory Examination: clear to auscultation. CV Examination: normal. Prophylactic Antibiotics: The patient does not require prophylactic antibiotics. Prior Anticoagulants: The patient has taken no anticoagulant or antiplatelet agents. ASA Grade Assessment: IV - A patient with severe systemic disease that is a constant threat to life. After reviewing the risks and benefits, the patient was deemed in satisfactory condition to undergo the procedure. The anesthesia plan was to use monitored anesthesia care (MAC). Immediately prior to administration of medications, the patient was re-assessed for adequacy to receive sedatives. The heart rate, respiratory rate, oxygen saturations, blood pressure, adequacy of pulmonary ventilation, and response to care were monitored throughout the procedure. The physical status of the patient was re-assessed after the procedure. After obtaining informed consent, the endoscope was passed under direct vision. Throughout the procedure, the patient's blood pressure, pulse, and oxygen saturations were monitored continuously.The Olympus Pediatric Colonoscope was introduced through the mouth, and advanced to the third part of duodenum. The upper GI endoscopy was accomplished without difficulty. The patient tolerated the procedure well. Findings: Scattered severe mucosal changes characterized by congestion, erythema, hemorrhagic appearance, inflammation, scalloping and ulceration were found in the entire duodenum. Biopsies were taken with a cold forceps for histology. To stop active bleeding, hemostatic spray was deployed. Multiple sprays were applied. There was no bleeding at the end of the procedure. Estimated blood loss was minimal. Scattered mild inflammation characterized by congestion (edema), erosions and erythema was found in the entire examined stomach. Biopsies were taken with a cold forceps for histology. Estimated blood loss was minimal. The esophagus was normal. Procedure Code(s): --- Professional --- 50864, 59, Esophagogastroduodenoscopy, flexible, transoral; with control of bleeding, any method 48653, Esophagogastroduodenoscopy, flexible, transoral; with biopsy, single or multiple Diagnosis Code(s): --- Professional --- K31.89, Other diseases of stomach and duodenum K29.70, Gastritis, unspecified, without bleeding K92.2, Gastrointestinal hemorrhage, unspecified CPT copyright 202 [employer]. All rights reserved. The codes documented in this report are preliminary and upon psychological science professor review may be revised to meet current compliance requirements. Zonia Whitfield MD 08/14/2024 1:16:46 PM This report has been signed electronically.Zonia Whitfield MD Number of Addenda: 0 Note Initiated On: 08/14/2024 11:14 AM Endoscopy Department at [facility] - [address] [place] [id number] Procedure Note Zonia Whitfield MD - 08/14/2024 [facility] Patient Name: Celestina Johnson Procedure Date: 08/14/2024 11:14 AM Date of : 1960 Age: 63 Gender: Female Note Status: Finalized Attending MD: Zonia Whitfield MD, Procedure Date No Time: 08/14/2024 Procedure: Upper GI endoscopy Indications: Recent gastrointestinal bleeding, Suspected upper gastrointestinal bleeding Providers: Zonia Whitfield MD Referring MD: Zonia Whitfield MD Medicines: Monitored Anesthesia Care Complications: No immediate complications. Estimated blood loss: Minimal. Estimated Blood Loss: Estimated blood loss was minimal. Procedure: Pre-Anesthesia Assessment: - Prior to the procedure, a History and Physicalwas performed, and patient medications and allergieswere reviewed. The patient is unable to give consent secondary to the patient's altered mental status.The risks and benefits of the procedure and thesedation options and risks were discussed with the patient's son. All questions were answered and informedconsent was obtained. Patient identification and proposed procedure were verified by the physician, the nurse and the waste handling technician in the procedure room. Mental Status Examination: sedated. Airway Examination: orotracheal intubation. Respiratory Examination:clear to auscultation. CV Examination: normal.Prophylactic Antibiotics: The patient does not requireprophylactic antibiotics. Prior Anticoagulants: The patient has taken no anticoagulant or antiplatelet agents. ASA Grade Assessment: IV - A patient with severesystemic disease that is a constant threat to life. After reviewing the risks and benefits, the patient was deemed in satisfactory condition to undergo the procedure. The anesthesia plan was to use monitored anesthesia care (MAC). Immediately prior to administration of medications, the patient was re-assessed for adequacy to receive sedatives. The heart rate, respiratory rate, oxygen saturations, blood pressure, adequacy of pulmonary ventilation,and response to care were monitored throughout the procedure. The physical status of the patient was re-assessed after the procedure. After obtaining informed consent, the endoscope was passed under direct vision. Throughout theprocedure, the patient's blood pressure, pulse, and oxygen saturations were monitored continuously.The Olympus Pediatric Colonoscope was introduced through the mouth, and advanced to the third part of duodenum.The upper GI endoscopy was accomplished without difficulty. The patient tolerated the procedurewell. Findings: Scattered severe mucosal changes characterized by congestion, erythema, hemorrhagic appearance, inflammation, scalloping and ulceration were foundin the entire duodenum. Biopsies were taken with acold forceps for histology. To stop active bleeding, hemostatic spray was deployed. Multiple sprays were applied. There was no bleeding at the end of the procedure. Estimated blood loss was minimal. Scattered mild inflammation characterized by congestion (edema), erosions and erythema was foundin the entire examined stomach. Biopsies were takenwith a cold forceps for histology. Estimated blood losswas minimal. The esophagus was normal. Procedure Code(s): --- Professional --- 76345, 59, Esophagogastroduodenoscopy, flexible, transoral; with control of bleeding, any method 23269, Esophagogastroduodenoscopy, flexible, transoral; with biopsy, single or multiple Diagnosis Code(s): --- Professional --- K31.89, Other diseases of stomach and duodenum K29.70, Gastritis, unspecified, without bleeding K92.2, Gastrointestinal hemorrhage, unspecified CPT copyright 2020 [employer]. All rights reserved. The codes documented in this report are preliminary and upon psychological science professor reviewmay be revised to meet current compliance requirements. Zonia Whitfield MD 08/14/2024 1:16:46 PM This report has been signed electronically.Zonia Whitfield MD Number of Addenda: 0 Note Initiated On: 08/14/2024 11:14 AM Endoscopy Department at [facility] - [address] [place] [phone] IMPRESSION: - Mucosal changes in the duodenum. Biopsied. hemostatic spray applied. - Gastritis. Biopsied. - Normal esophagus. Recommendation: - Use Protonix (pantoprazole) 40 mg IV BID. - Clear liquid diet. Zonia Whitfield MD GI~PROCEDURE ORDERABLES Fin al Result * Type and screen (08/14/2024 6:19 AM EDT) Only the most recent of2 resultswithin the time period is included. ABO Group O 08/14/2024 8:14 AM EDT [facility] Rh Type Positive 08/14/2024 8:14 AM EDT [facility] Antibody Screen Negative 08/14/2024 8:14 AM EDT [facility] Blood Venous blood specimen / Unknown Venipuncture / Unknown 08/14/2024 6:19 AM EDT 08/14/2024 6:24 AM EDT Destin Stiles DO LAB BLOOD BANK TEST ORDERABL ES Final Result Performing Organization Address [facility]/ZIP Co de Phone Number [facility] [address] [place] [address], [place] [phone] * Prepare RBC: 1 Units (08/14/2024 6:06 AM EDT) Only the most recent of4 resultswithin the time period is included. Product Code [id number] 08/14/2024 11:00 AM EDT [facility] Unit Number [id number] 08/15/19 11:00 AM EDT [facility] Crossmatch Compatible 08/14/2024 8:18 AM EDT [facility] Dispense Status Transfused 08/14/2024 11:00 AM EDT [facility] Unit ABO Rh OPOS 08/14/2024 11:00 AM EDT [facility] Unit Expiration Date Time [id number] 08/14/2024 11:00 AM EDT [facility] Unit Blood Type 5100 08/14/2024 11:00 AM EDT [facility] Blood Venous blood specimen / Unknown 08/14/2024 6:06 AM EDT 08/14/2024 6:24 AM EDT Destin Stiles DO BLOOD BANK PRODUCT ORDERABLE S Final Result [facility] [address] [place] [address], * Ammonia (08/14/2024 4:11 AM EDT) Only the most recent of3 resultswithin the time period is included. Ammonia 18 11 - 35 mcmol/L LAB CHEMISTRY METHOD 08/14/2024 5:02 AM EDT [facility] Blood Venous blood specimen / Unknown Venipuncture / Unknown 08/14/2024 4:11 AM EDT 08/14/2024 4:36 AM EDT Destin Stiles DO LAB BLOOD ORDERABLES Final R esult Performing Organization Address [facility] Co de Phone Number [facility] [address] [place] [address], [place] [phone] * (ABNORMAL) Triglyceride Monitoring (08/12/2024 8:51 AM EDT) Only the most recent of3 resultswithin the time period is included. [facility] Triglycerides 311(H) 0 - 150 mg/dL LAB CHEMISTRY METHOD 08/12/2024 9:21 AM EDT [facility] Blood Venous blood specimen / Unknown Venipuncture / Unknown 08/12/2024 8:51 AM EDT 08/12/2024 9:01 AM EDT Eda Kerns MD LAB BLOOD ORDERABLES Final Re sult Performing Organization Address [facility] de Phone Number [facility] [address] [place] [address], [place] [phone] * ECG 12 lead (08/10/2024 1:05 PM EDT) Only the most recent of3 resultswithin the time period is included. Ventricular Rate ECG 60 BPM GEMUSE Atrial Rate 60 BPM GEMUSE P-R Interval 174 ms GEMUSE QRS Duration 106 ms GEMUSE Q-T Interval 514 ms GEMUSE QTc 514 ms GEMUSE P Wave Perry 47 degrees GEMUSE R Perry 77 degrees GEMUSE T Perry 61 degrees GEMUSE ECG Interpretation Normal sinus rhythm with sinus pause Prolonged QT Abnormal ECG When compared with ECG of 09-AUG-2024 08:55, Normal sinus rhythm has replaced Atrial flutter with 2 to 1 block Sinus pause , new Confirmed by GRIS SNOW ([id number]) on 08/10/2024 8:20:25 PM GEMUSE 08/10/2024 1:05 PM EDT 08/10/2024 8:20 PM EDT us dEa Kerns MD ECG ORDERABLES Final Result GEMUSE * (ABNORMAL) Hemoglobin and hematocrit (08/09/2024 11:34 PM EDT) Only the most recent of9 resultswithin the time period is included. Hemoglobin 9.3(L) 11.5 - 16.0 g/dL LAB HEMETOLOGY METHOD 08/09/2024 11:54 PM EDT [facility] Hematocrit 29.2(L) 35.0 - 47.0 % LAB HEMETOLOGY METHOD 08/09/2024 11:54 PM EDT [facility] Blood Blood sample taken from central line / Unknown Existing Catheter / Unknown 08/09/2024 11:34 PM EDT 08/09/2024 11:47 PM EDT Destin Stiles DO LAB BLOOD ORDERABLES Final R esult Performing Organization Address City/[facility]/ZIP Co de Phone Number [facility] [address] [place] [address], [place] [phone] * (ABNORMAL) POCT Glucose, blood (08/09/2024 11:54 AM EDT) Only the most recent of4 resultswithin the time period is included. Glucose POCT 102(H) 70 - 100 mg/dL 08/09/2024 11:55 AM EDT [facility] Blood Capillary blood specimen / Unknown 08/09/2024 11:54 AM EDT 08/09/2024 11:56 AM EDT Destin Stiles DO LAB POINT OF CARE TE ST DOCKED DEVICE UNSOLICITED RESULTS Final Result Performing Organization Address [facility]/ZIP Co de Phone Number [facility] [address] [place] [address], [place] [phone] * Blood Culture, Peripheral Draw #2 (08/09/2024 11:44 AM EDT) Only the most recent of8 resultswithin the time period is included. Culture, Blood No growth at 5 days 08/14/2024 12:01 PM EDT [facility] Blood Venous blood specimen / Unknown Venipuncture / Unknown 08/09/2024 11:44 AM EDT 08/09/2024 11:53 AM EDT Destin Stiles DO LAB MICROBIOLOGY - GENERAL O RDERABLES Final Result Performing Organization Address [facility] Co de Phone Number [facility] [address] [place] [address], [place] [phone] * Hepatitis B surface antibody quantitative (08/09/2024 11:41 AM EDT) [facility] Hepatitis B Surface Ab Negative Negative LAB CHEMISTRY METHOD 08/09/2024 1:36 PM EDT [facility] Hepatitis B Surface Ab Quantitative 3.3 mIU/mL LAB CHEMISTRY METHOD 08/09/2024 1:36 PM EDT [facility] Blood Venous blood specimen / Unknown 08/09/2024 11:41 AM EDT 08/09/2024 11:53 AM EDT Narrative [facility] - 08/09/2024 1:36 PM EDT >=10 mIU/mL is considered to be consistent with immunity. Destin Stiles DO LAB BLOOD ORDERABLES Final R esult Performing Organization Address [facility]/ZIP Co de Phone Number [facility] [address] [place] [address], [place] [phone] * (ABNORMAL) Vancomycin, trough Please draw prior to the 11 am dose. (08/09/2024 9:47 AM EDT) Vancomycin Trough 8.5(L) 10.0 - 20.0 mcg/mL LAB CHEMISTRY METHOD 08/09/2024 10:25 AM EDT [facility] Blood Blood sample taken from central line / Unknown Venipuncture / Unknown 08/09/2024 9:47 AM EDT 08/09/2024 9:49 AM EDT us Opal Max MD LAB BLOOD ORDERABLES Final Resul t [facility] [address] [place] [address], [place] [phone] * [place] CATHETERIZATION/CANNULATION ARTERIAL SAMPLE/MONITORING/TRANSFUSION PERC (08/08/2024 10:24 PM EDT) Narrative Destin Stiles, - 08/08/2024 10:24 PM EDT ANASTACIA Feldman 08/08/2024 10:29 PM Arterial Line Insertion Date/Time: 08/08/2024 10:24 PM Performed by: ANASTACIA Feldman Authorized by: ANASTACIA Feldman Consent: Consent obtained: Verbal (consent obtained verbally earlier by Dr. kerns) Consent given by: Patient Risks, benefits, and alternatives were discussed: yes Risks discussed: Bleeding, ischemia and pain [place] protocol: Procedure explained and questions answered to patient or proxy's satisfaction: yes Relevant documents present and verified: yes Test results available: yes Imaging studies available: yes Required blood products, implants, devices, and special equipment available: yes Site/side marked: no Immediately prior to procedure, a time out was called: yes Patient identity confirmed: Anonymous protocol, patient vented/unresponsive Indications: Indications: hemodynamic monitoring Pre-procedure details: Skin preparation: Chlorhexidine Preparation: Patient was prepped and draped in sterile fashion Sedation: Sedation type: Deep Anesthesia: Anesthesia method: None Procedure details: Location: L radial (Right radial with poor pulse) Rivera's test performed: no Needle gauge: 22 G Placement technique: Seldinger Number of attempts: 2 (Artery accessed on second pass. Wire initially passed easily but then vessel seemed obstructed. Catheter placed over the guidewire, however no blood flow. both catheter and wire were manipulated several times, however still unable to obtain blood flow) Post-procedure details: CMS: Unchanged Procedure completion: Procedure terminated electively by provider Comments: Most likely calcification within vessel which would not allow guidewire to pass freely. us Victorina GALAVIZ IV THERAPY ORDERABLES Final Result * WI INSERTION NON-TUNNELED CENTRALLY INSERTED CENTRAL VENOUS CATH 5 YRS/> (08/08/2024 10:21 PM EDT) Narrative Destin Stiles, DO - 08/08/2024 10:21 PM EDT ANASTACIA Feldman 08/08/2024 10:24 PM Central Line Insertion Date/Time: 08/08/2024 10:21 PM Performed by: ANASTACIA Feldman Authorized by: ANASTACIA Feldman Consent: Consent obtained: Verbal (Consent obtained earlier by Dr. Kerns) Consent given by: Patient Risks, benefits, and alternatives were discussed: yes Risks discussed: Bleeding, infection and pneumothorax Alternatives discussed: No treatment [place] protocol: Procedure explained and questions answered to patient or proxy's satisfaction: yes Relevant documents present and verified: yes Test results available: yes Imaging studies available: yes Required blood products, implants, devices, and special equipment available: yes Site/side marked: no Immediately prior to procedure, a time out was called: yes Patient identity confirmed: Anonymous protocol, patient vented/unresponsive Pre-procedure details: Indication(s) comment: Hemodialysis Hand hygiene: Hand hygiene performed prior to insertion Sterile barrier technique: All elements of maximal sterile technique followed Skin preparation: Chlorhexidine Skin preparation agent: Skin preparation agent completely dried prior to procedure Sedation: Sedation type: Deep Anesthesia: Anesthesia method: None Procedure details: Location: R internal jugular Patient position: Supine Procedural supplies: Triple lumen (Mahukar triple lumen dialysis catheter) Landmarks identified: no Ultrasound guidance: yes Ultrasound guidance timing: prior to insertion and real time Sterile ultrasound techniques: Sterile gel and sterile probe covers were used Number of attempts: 1 Successful placement: yes Post-procedure details: Post-procedure: Dressing applied and line sutured Assessment: Blood return through all ports, no pneumothorax on x-ray, free fluid flow and placement verified by x-ray Procedure completion: Tolerated us Victorina GALAVIZ IN CLINIC/BEDSIDE ORDERABLE S Final Result * (ABNORMAL) Urinalysis with reflex microscopic (08/08/2024 2:21 PM EDT) Specific [place] Urine 1.023 1.003 - 1.030 LAB URINALYSIS - AUTOMATED METHOD 08/08/2024 3:02 PM [facility] pH, Urine 5.0 5.0 - 8.0 pH LAB URINALYSIS - AUTOMATED METHOD 08/08/2024 3:02 PM [facility] Leukocytes, Urine Trace(A) Negative LAB URINALYSIS - AUTOMATED METHOD 08/08/2024 3:02 PM [facility] Nitrite, Urine Positive(A) Negative LAB URINALYSIS - AUTOMATED METHOD 08/08/2024 3:02 PM [facility] Protein, Urine 100(A) <=Trace mg/dL LAB URINALYSIS - AUTOMATED METHOD 08/08/2024 3:02 PM [facility] Glucose, Urine Negative Negative mg/dL LAB URINALYSIS - AUTOMATED METHOD 08/08/2024 3:02 PM [facility] Ketones, Urine Trace(A) Negative mg/dL LAB URINALYSIS - AUTOMATED METHOD 08/08/2024 3:02 PM [facility] Urobilinogen , Urine 1.0 0.2 - 1.0 mg/dL LAB URINALYSIS - AUTOMATED METHOD 08/08/2024 3:02 PM [facility] Bilirubin, Urine Small(A) Negative LAB URINALYSIS - AUTOMATED METHOD 08/08/2024 3:02 PM [facility] Blood, Urine Large(A) Negative LAB URINALYSIS - AUTOMATED METHOD 08/08/2024 3:02 PM [facility] RBC, Urine 72.1(H) 0 - 4 /HPF LAB URINALYSIS - AUTOMATED METHOD 08/08/2024 3:02 PM EDT [facility] WBC, Urine 27.6(H) 0 - 4 /HPF LAB URINALYSIS - AUTOMATED METHOD 08/08/2024 3:02 PM EDT [facility] Squamous Epithelial, Urine >100(H) 0 - 60 /LPF LAB URINALYSIS - AUTOMATED METHOD 08/08/2024 3:02 PM EDT [facility] Crystals, Urine MOD KELLY URATES /LPF LAB URINALYSIS - AUTOMATED METHOD 08/08/2024 3:02 PM EDT [facility] Bacteria, Urine Negative Negative /HPF 08/08/2024 3:02 PM EDT [facility] Hyaline Casts, Urine 15.3(H) 0 - 3 /LPF LAB URINALYSIS - AUTOMATED METHOD 08/08/2024 3:02 PM EDT [facility] Urine Urine specimen obtained by clean catch procedure / Unknown Non-blood Collection / Unknown 08/08/2024 2:21 PM EDT 08/08/2024 2:34 PM EDT us Bharti Hedrick MD LAB URINE ORDERABLES Final Res ult [facility] [address] [place] [address], * Urea nitrogen, urine (08/08/2024 2:21 PM EDT) Urea Nitrogen, Ur 249 mg/dL LAB CHEMISTRY METHOD 08/08/2024 3:05 PM EDT [facility] Urine Urine specimen obtained by clean catch procedure / Unknown Non-blood Collection / Unknown 08/08/2024 2:21 PM EDT 08/08/2024 2:35 PM EDT us Destin Stiles DO LAB URINE ORDERABLES Final R esult Performing Organization Address [facility]/ZIP Co de Phone Number [facility] [address] [place] [address], [place] [phone] * (ABNORMAL) Protein and creatinine with ratio, urine (08/08/2024 2:21 PM EDT) Protein, Urine 183 mg/dL LAB CHEMISTRY METHOD 08/08/2024 3:05 PM EDT [facility] Prot/Creat, Ur 0.74(H) <=0.20 mg/mg creat LAB CHEMISTRY METHOD 08/08/2024 3:05 PM EDT [facility] Creatinine, Urine 246.0 mg/dL LAB CHEMISTRY METHOD 08/08/2024 3:05 PM EDT [facility] Urine Urine specimen obtained by clean catch procedure / Unknown Non-blood Collection / Unknown 08/08/2024 2:21 PM EDT 08/08/2024 2:35 PM EDT Charlie Brunson MD LAB URINE ORDERABLES Final Re sult Performing Organization Address [facility] de Phone Number [facility] [address] [place] [address], [place] [phone] * Sodium, urine, random (08/08/2024 2:21 PM EDT) Sodium, Ur 15 mmol/L LAB CHEMISTRY METHOD 08/08/2024 2:57 PM EDT [facility] Urine Urine specimen from urethra / Unknown Non-blood Collection / Unknown 08/08/2024 2:21 PM EDT 08/08/2024 2:35 PM EDT us Charlie Brunson MD LAB URINE ORDERABLES Final Re sult Performing Organization Address [facility]/ZIP Co de Phone Number [facility] [address] [place] [address], [place] [phone] * Creatinine, urine, random (08/08/2024 2:21 PM EDT) Pathologist [facility] Creatinine, Urine 246.0 mg/dL LAB CHEMISTRY METHOD 08/08/2024 3:05 PM EDT [facility] Urine Urine specimen obtained by clean catch procedure / Unknown Non-blood Collection / Unknown 08/08/2024 2:21 PM EDT 08/08/2024 2:35 PM EDT us Destin Stiles DO LAB URINE ORDERABLES Final R esult [facility] [address] [place] [address], [place] [phone] * (ABNORMAL) Culture sputum (08/08/2024 2:18 PM EDT) Pathologist [facility] Culture, Sputum Milly krusei(A) ILENE 08/12/2024 11:07 AM EDT [facility] Comment: The organism value for this result has been updated. These results have been appended to the previously preliminary verified report. Edited result: Previously reported as Yeast on 08/11/2024 at 0845 EDT. Culture, Sputum Milly albicans/dubliniensi s(A) ILENE 08/12/2024 11:07 AM EDT [facility] Comment: The organism value for this result has been updated. These results have been appended to the previously preliminary verified report. Gram Stain Result Moderate Polymorphonuclear leukocytes 08/12/2024 11:07 AM EDT [facility] Gram Stain Result Few Epithelial cells 08/12/2024 11:07 AM EDT [facility] Gram Stain Result No organisms seen 08/12/2024 11:07 AM T [facility] Sputum, aspirated Tracheal structure / Unknown Non-blood Collection / Unknown 08/08/2024 2:18 PM EDT 08/08/2024 2:34 PM EDT us Eda Kerns MD LAB MICROBIOLOGY - GENERAL OR DERABLES Final Result [facility] [address] [place] [address], [place] [phone] * TH AN ENDOTRACHEAL(NO CHARGE) (08/08/2024 9:58 AM EDT) Narrative Prakash Mahoney MD - 08/08/2024 9:58 AM EDT Prakash Mahoney MD 08/08/2024 10:02 AM General Information and Staff Patient location during procedure: [place] Anesthesiologist: Prakash Mahoney MD Performed: anesthesiologist Performed by: Prakash Mahoney MD Authorized by: Prakash Mahoney MD Consent for Airway (if performed for an anesthetic, see related documentation for consents) Consent: Verbal consent obtained. Written consent obtained. Risks and benefits: risks, benefits and alternatives were discussed Consent given by: patient Intubation Additional Comments Patient given phenylephrine bolus of 300mcg prior to induction with propofol and rocuronium. 7.0 ETT placed without any issues. Sedated with midazolam prior to induction as well. Urgency: emergent (urgent) Final Airway Details Successful airway: ETT Cuffed: yes Successful intubation technique: video laryngoscopy Facilitating devices/methods: intubating stylet Endotracheal tube insertion site: oral Blade: Timothy Blade size: #3 ETT size (mm): 7.0 Cormack-Lehane Classification: grade I - full view of glottis Placement verified by: chest auscultation and capnometry Measured from: teeth ETT to teeth (cm): 22 Number of attempts at approach: 1Final airway type: endotracheal airway Indications and Patient Condition Indications for airway management: airway protection Spontaneous Ventilation: absent Sedation level: Yes Preoxygenated: yes Soft Tissue Damage: No Dentition Unchanged: Yes Patient position: sniffing MILS maintained throughout Mask difficulty assessment: 0 - not attempted Medications Administered propofoL (DIPRIVAN) injection - intravenous 100 mg - 08/08/2024 9:50:00 AM rocuronium (ZEMURON) injection - intravenous 110.46 mg dosed at 0.6 mg/kg using weight 184.1 kg - 08/08/2024 9:50:00 AM midazolam (VERSED) injection - intravenous 2 mg - 08/08/2024 9:50:00 AM Start Time: 08/08/2024 9:50 AMStop Time: 08/08/2024 9:55 AM us Prakash Mahoney MD ANESTHESIA ORDERABLES Final Re sult * Cortisol (08/08/2024 4:13 AM EDT) Cortisol 47.3 mcg/dL LAB CHEMISTRY METHOD 08/08/2024 8:43 AM EDT [facility] Blood Blood sample taken from central line / Unknown Venipuncture / Unknown 08/08/2024 4:13 AM EDT 08/08/2024 4:39 AM EDT Narrative [facility] - 08/08/2024 8:43 AM EDT CORTISOL REFERENCE RANGE 8 AM SPEC: 5.0-23.0 mcg/dL 4 PM SPEC: 3.0-16.0 mcg/dL 8 PM SPEC: <5.0 mcg/dL us Destin Stiles DO LAB BLOOD ORDERABLES Final R esult Performing Organization Address City/[facility]/ZIP Co de Phone Number [facility] [address] [place] [address], [place] [phone] * C3 complement (08/07/2024 10:55 PM EDT) C3 Complement 100 88 - 201 mg/dL LAB CHEMISTRY METHOD 08/08/2024 2:35 AM EDT [facility] Blood Blood sample taken from central line / Unknown Venipuncture / Unknown 08/07/2024 10:55 PM EDT 08/07/2024 11:00 PM EDT us Hugo Foy MD LAB BLOOD ORDERABLES Final Resu lt [facility] [address] [place] [address], [place] [phone] * C4 complement (08/07/2024 10:55 PM EDT) [facility] C4 Complement 27 16 - 47 mg/dL LAB CHEMISTRY METHOD 08/07/2024 11:24 PM EDT [facility] Blood Blood sample taken from central line / Unknown Venipuncture / Unknown 08/07/2024 10:55 PM EDT 08/07/2024 11:00 PM EDT Hugo Foy MD LAB BLOOD ORDERABLES Final Resu lt [facility] [address] [place] [address], [place] [phone] * MRSA molecular study (08/07/2024 8:10 PM EDT) [facility] MRSA Screen PCR Not Detected Not Detected LAB MICROBIOLOGY METHOD 08/07/2024 9:44 PM EDT [facility] Swab Both anterior nares / Unknown Non-blood Collection / Unknown 08/07/2024 8:10 PM EDT 08/07/2024 8:19 PM EDT Destin Stiles DO LAB MICROBIOLOGY - GENERAL O RDERABLES Final Result Performing Organization Address City/[facility]/ZIP Co de Phone Number [facility] [address] [place] [address], [place] [phone] * TRANSTHORACIC ECHOCARDIOGRAM (TTE) LIMITED COLOR FLOW & DOPPLER (08/07/2024 4:28 PM EDT) [facility] BSA 2.96 m2 CV PACS Anatomical Region Laterality Modality Ultrasound Narrative 08/07/2024 4:44 PM EDT This was a very limited study. Not only was image quality poor but the patient was tachycardic to about 110 bpm. I believe LV function is normal. RV function is probably normal as well. The mitral and tricuspid valves appear to be grossly normal without any significant stenosis or insufficiency. There was also another limited study on May 01, 2024.Contrast was used and LV systolic function looked normal. They did not see any significant valve abnormality. Left Ventricle Left ventricle was not well visualized. Wall thickness was not well visualized. Probably normal Regional LV wall motion cannot be accurately assessed. Unable to assess diastolic function. Right Ventricle Right ventricle was not well visualized. Probably normal Left Atrium Probably normal Right Atrium Right atrium was not well visualized. IVC/SVC Inferior vena cava was not well visualized. Mitral Valve The leaflets are mildly thickened. There is trace regurgitation. There is no evidence of mitral valve stenosis. Tricuspid Valve The leaflets exhibit probably normal excursion. There is trace regurgitation. Unable to assess tricuspid valve stenosis due to poor Doppler exam. Cannot assess RVSP. Aortic Valve The aortic valve was not well visualized. The leaflets are mildly thickened. There is no regurgitation or stenosis. Pulmonic Valve The pulmonic valve was not well visualized. Unable to assess pulmonic valve regurgitation and stenosis due to poor Doppler exam. Ascending Aorta The aorta was not well visualized. Pericardium Pericardium appears normal. Study Details Overall the study quality was technically difficult. Definity contrast was given to enhance imaging. Limited study due to patient tolerance. Study was difficult due to: poor endocardial visualization, patient body habitus, procedure performed with the patient in a supine position and poor acoustic windows. us Destin Stiles DO CV ECHO PROCEDURES Final Res ult * (ABNORMAL) Fibrinogen (08/07/2024 3:56 PM EDT) Fibrinogen 848(H) 200 - 393 mg/dL LAB COAGULATION METHOD 08/07/2024 5:09 PM EDT [facility] Blood Venous blood specimen / Unknown Venipuncture / Unknown 08/07/2024 3:56 PM EDT 08/07/2024 4:10 PM EDT us Destin Stiles DO LAB BLOOD ORDERABLES Final R esult [facility] [address] [place] [address], [place] [phone] * Thyroid stimulating hormone with reflex to free t4 and free t3 (08/07/2024 4:09 AM EDT) Pathologist [facility] TSH 2.48 0.40 - 4.00 mcIU/mL LAB CHEMISTRY METHOD 08/07/2024 4:47 PM EDT [facility] Blood Venous blood specimen / Unknown Venipuncture / Unknown 08/07/2024 4:09 AM EDT 08/07/2024 4:14 AM EDT Destin Stiles DO LAB BLOOD ORDERABLES Final R esult Performing Organization Address [facility]/ZIP Co de Phone Number [facility] [address] [place] [address], [place] [phone] * (ABNORMAL) Occult blood stool, guaiac (08/07/2024 2:00 AM EDT) [facility] Occult Blood, Stool #1 Positive( A) Negative 08/07/2024 2:22 AM EDT [facility] Stool Rectum structure / Unknown Non-blood Collection / Unknown 08/07/2024 2:00 AM EDT 08/07/2024 2:09 AM EDT Svetlana GALAVIZ LAB BODY FLUIDS AND STOOLS MANUELA KAPOOR Final Result Performing Organization Address [facility]/ZIP Co de Phone Number [facility] [address] [place] [address], [place] [phone] * US Retroperitoneal Complete (08/06/2024 6:10 PM EDT) Anatomical Region Laterality Modality Body Ultrasound 08/06/2024 6:16 PM EDT Impressions 08/06/2024 6:16 PM EDT The bilateral kidneys are unremarkable. Nonvisualization of the bilateral ureteral jets. This document has been electronically signed by: Marlys Turner MD on 08/06/2024 18:16:07 Narrative 08/06/2024 6:16 PM EDT INDICATION: Renal failure, acute US Renal Comparison: None Findings: Limited examination due to patient's body habitus. Right kidney normal size and echotexture, 13 cm length. Left kidney normal size and echotexture, 11.7 cm length. No collecting system dilatation of either kidney. Normal color Doppler. Urinary bladder is unremarkable. Bilateral ureteral jets are not visualized. Procedure Note Marlys Turner MD - 08/06/2024 INDICATION: Renal failure, acute US Renal Comparison: None Findings: Limited examination due to patient's body habitus. Right kidney normal size and echotexture, 13 cm length. Left kidney normal size and echotexture, 11.7 cm length. No collecting system dilatation of either kidney. Normal color Doppler. Urinary bladder is unremarkable. Bilateral ureteral jets are not visualized. IMPRESSION: The bilateral kidneys are unremarkable. Nonvisualization of the bilateral ureteral jets. This document has been electronically signed by: Marlys Turner MD on 08/06/2024 18:16:07 us Svetlana GALAVIZ IMG US PROCEDURES Final Result * (ABNORMAL) Lactate, with reflex (08/06/2024 3:03 PM EDT) Only the most recent of2 resultswithin the time period is included. LACTIC ACID 2.7(H) 0.4 - 2.0 mmol/L LAB CHEMISTRY METHOD 08/06/2024 3:44 PM EDT [facility] Blood Venous blood specimen / Unknown Venipuncture / Unknown 08/06/2024 3:03 PM EDT 08/06/2024 3:10 PM EDT us Bharti Hedrick MD LAB BLOOD ORDERABLES Final Res ult [facility] [address] [place] [address], [place] [phone] * Troponin I high sensitivity (08/06/2024 3:00 PM EDT) Only the most recent of2 resultswithin the time period is included. High Sensitivity Troponin I 5 <=54 ng/L LAB CHEMISTRY METHOD 08/06/2024 3:45 PM EDT [facility] Blood Venous blood specimen / Unknown Venipuncture / Unknown 08/06/2024 3:00 PM EDT 08/06/2024 3:10 PM EDT [facility] - 08/06/2024 3:45 PM EDT High levels of biotin in samples may falsely decrease hsTroponin values. Use caution when interpreting hsTroponin results in patients taking biotin who exhibit renal impairment (eGFR <60) or in patients taking more than 20 mg/day of biotin. Bharti Hedrick MD LAB BLOOD ORDERABLES Final Res ult Performing Organization Address City/[facility]/ZIP Co de Phone Number [facility] [address] [place] [address], [place] [phone] * Blood culture pathogens molecular study (08/06/2024 10:47 AM EDT) Only the most recent of2 resultswithin the time period is included. Blood Venous blood specimen / Unknown Venipuncture / Unknown 08/06/2024 10:47 AM EDT 08/06/2024 11:06 AM EDT [facility] - 08/07/2024 5:03 PM EDT No targets detected by multiplex PCR panel. Refer to culture. Trevor Howard DO LAB MICROBIOLOGY - GENERAL ORD ERABLES Final Result [facility] [address] [place] [address], [place] [phone] * B-type natriuretic peptide (08/06/2024 10:47 AM EDT) Pathologist [facility] BNP 83 <=100 pcg/mL LAB CHEMISTRY METHOD 08/06/2024 11:51 AM EDT [facility] Blood Venous blood specimen / Unknown Venipuncture / Unknown 08/06/2024 10:47 AM EDT 08/06/2024 11:09 AM EDT Trevor Howard DO LAB BLOOD ORDERABLES Final Res ult [facility] [address] [place] [address], [place] [phone] * WI CRITICAL CARE 30-74 MINUTES (08/06/2024 10:16 AM EDT) Narrative Trevor Howard DO - 08/06/2024 10:16 AM EDT Trevor Howard DO 08/08/2024 10:06 AM Critical Care Performed by: Trevor Howard DO Authorized by: Trevor Howard DO Critical care provider statement: Critical care time (minutes): 60 Total face to face critical care time (minutes): 60 Critical care time was exclusive of: Separately billable procedures and treating other patients and teaching time Critical care was necessary to treat or prevent imminent or life-threatening deterioration of the following conditions: Dyspnea, rapid A-fib. Critical care was time spent personally by me on the following activities: Blood draw for specimens, development of treatment plan with patient or surrogate, evaluation of patient's response to treatment, examination of patient, obtaining history from patient or surrogate, ordering and performing treatments and interventions, ordering and review of laboratory studies, ordering and review of radiographic studies, pulse oximetry, re-evaluation of patient's condition and review of old charts I assumed direction of critical care for this patient from another provider in my specialty: no Trevor Howard DO IN CLINIC/BEDSIDE ORDERABLES F inal Result * External Colonoscopy Report (05/03/2024 9:19 AM EDT) Anatomical Region Laterality Modality Endoscopy Historical Provider GI~PROCEDURE ORDERABLES F inal Result * ALEXI SCREENING DIGITAL (02/10/2022 6:50 PM EST) Anatomical Region Laterality Modality Mammography 02/10/2022 1:46 PM EST Narrative 02/10/2022 6:50 PM EST [facility] Diagnostic Imaging Department [address] [place] [id number] Patient: CELESTINA JOHNSON /Age/Sex: 1960 - 61 - F Unit#: [id number] [facility] Mn[facility]onic/Ordering Site: [facility] Ordering Physician: MARIZOL ROJAS MD Alexi Screening Digital - 02/10/22 - 1401 History: Bilateral breast cancer screening. Technique: Bilateral digital mammography. Conventional CC and MLO projections with tomosynthesis MLO views and computer-aided detection Comparison: [facility] 01/14/2021, dating back to 11/27/2014. Findings: Breast tissue is mostly fatty replaced (category A density) (as calculated by [employer] Volpara software). There is no suspicious group of microcalcification, no suspicious mass, architectural distortion or suspicious change in breast tissue density. Impression: No evidence of malignancy. BIRADS category 1, negative examination, 3341F [id number], [id number] Note: Patient information entered into a reminder system with a target due date for the next mammogram; [place] II [address]50H Dictating Physician: CROW DE SANTIAGO MD Electronically Signed by: CROW DE SANTIAGO MD Dic Date/Time: 02/10/220 Sign date/Time: 02/10/221849 Procedure Note Crow De Santiago MD - 03/25/2023 [facility] Diagnostic Imaging Department [address] [place] [id number] Patient: CELESTINA JOHNSON /Age/Sex: 1960 - 61 - F Unit#: [id number] Location/Status: SPDIMAM/REG CLI Mnemonic/Ordering Site: [facility] Ordering Physician: MARIZOL ROJAS MD Alexi Screening Digital - 02/10/22 - 1401 History: Bilateral breast cancer screening. Technique: Bilateral digital mammography. Conventional CC and MLOprojections with tomosynthesis MLO views and computer-aided detection Comparison: [facility] 01/14/2021, dating back to 11/27/2014. Findings: Breast tissue is mostly fatty replaced (category A density) (ascalculated by [employer] Volpara software). There is no suspicious group of microcalcification, no suspicious mass, architectural distortion or suspicious change in breast tissue density. Impression: No evidence of malignancy. BIRADS category 1, negative examination, 3341F [id number], [id number] Note: Patient information entered into a reminder system with a targetdue date for the next mammogram; [place] II [address]4K Dictating Physician: CROW DE SANTIAGO MD Electronically Signed by: CROW DE SANTIAGO MD Dic Date/Time: 02/10/221848 Sign date/Time: 02/10/221849 us Marizol Rojas MD IMG BI PROCEDURES Final Res ult from Last 3 Months or Most Recently Relevant to Health Maintenance Insurance [place] [id number] Advance Directives Documents on File Type Date Recorded Patient Directory Assistance Operator Expl anation Health Care Decision (hx) 06/02/2021 [...] SIMMONS DIRECTIVE Health Care Decision (hx) 06/02/2021 Deon Johnson ADVANCE DIRECTIVE * Full Code - Confirmed (Latest Code Status on File) Date Activated Date Inactivated Comments 08/06/2024 4:36 PM 09/13/2024 3:[address] atus was ascertained in the following way: Code status discussion: discussion with patient To update the patient's code status, place a code status order. Do not modify or discontinue any currently active code status orders. * Full Code - Default Date Activated Date Inactivated Comments 08/06/2024 1:26 PM 08/06/2024 4:36 PM This is orde r is used when code status has not been discussed with the patient, or code status is otherwise unknown/unconfirmed To update the patient's code status, place a code status order. Do not modify or discontinue any currently active code status orders. Healthcare Agents on File Name Relationship Healthcare Agent Relationship Communication Deon Torres First Alternate Health Care Agent Gris Johnson Brother Second Alternate Health Care Agent Care Teams Bindery Operator Relationship Specialty Start Date End Date Marizol Rojas MD [address] [facility] [address] [place], [place] PCP - General Internal Medicine 01/19/12
[2024-10-03 06:05] LABS: Anion Gap 14 (12-20); Blood Urea Nitrogen 23 mg/dL (9-16); Calcium 8.8 mg/dL (8.4-10.2); Carbon Dioxide 27 mmol/L (22-29); Chloride 102 mmol/L (96-108); Estimated Glomerular Filt Rate 26; Potassium 3.2 mmol/L (3.3-5.1); Sodium 140 mmol/L (135-145)
[2024-10-03 06:17] LABS: Hematocrit 27.7 % (37.0-47.0); Hemoglobin 8.8 g/dl (12.0-16.0); Imm Gran Abs Auto 0.03 X10*3/uL (0.00-0.03); Imm Gran Pct Auto 0.5 % (0.0-0.4); Lymphocytes Absolute Auto 1.2 X10*3/uL (1.2-4.9); Mean Corpuscular HGB Conc 31.8 g/dl (31.0-35.0); Mean Corpuscular Hemoglobin 27.8 pg (27.0-33.0); Mean Corpuscular Volume 87.4 fL (80.0-98.0); NRBC Abs Auto 0.000 X10*3/uL (0.0-0.012); NRBC Pct Auto 0.0 /100WBC (0.0-0.2); Platelet Count 217 X10*3/uL (160-400); Red Blood Count 3.17 X10*6/uL (4.20-5.50); White Blood Count 5.9 X10*3/uL (4.8-10.8)
== END 2024-10-03 05:30 | disposition home or self-care (01) ==
LOC: HO.MMNH2L 05:29
PROVIDERS: Visit Provider Student in an Organized Health Care Education/Training Program
DX: I48.91 Unspecified atrial fibrillation (principal); N71.9 Inflammatory disease of uterus, unspecified
CPT/HCPCS: 36415; 80048; 85025